=== PATIENT | female | born 1955 | race Caucasian/White ===

== ENCOUNTER 2017-01-25 01:36 | Inpatient (IN) | payer MEDICARE, MEDICAID ==
[2017-01-25] MEDS ORDERED: Propofol 1,000 MG/100 ML VIAL IV ONE (01:40)
[2017-01-25] MEDS ORDERED: Fentanyl 20 MCG/ML 250 ML ONE (01:46)
[2017-01-25] MEDS ORDERED: Norepinephrine 8 MG/0.9% NS 250 ML ONE (01:55)
[2017-01-25 02:02] LABS: Oxyhemoglobin 91.7 % (94.0-97.0); Sodium 143 mmol/L (135-148)
[2017-01-25 02:09] LABS: Mechanical Tidal Volume 500 ml; Modified Allen's Test POSITIVE; Vent YES
[2017-01-25 02:10] LABS: Mode SIMV; PIP 36 cmH2O; Pressure Support 10 cmH2O
[2017-01-25 02:39] LABS: Prothrombin Time 17.7 SEC (12.0-14.7)
[2017-01-25] MEDS ORDERED: Acetaminophen 1,000 MG in Premix Bag 1 BAG IVPB SCH (02:45)
[2017-01-25 02:50] LABS: Lactic Acid - Sepsis 1.3 mmol/L (0.5-2.2)
[2017-01-25 02:53] LABS: ALT (SGPT) 296 U/L (8-55); AST (SGOT) 456 U/L (5-34); Alkaline Phosphatase 76 U/L (40-150); Anion Gap 12 mmol/L (10-20); BUN (Urea Nitrogen) 14 mg/dL (9.8-20.1); Bilirubin, Total 0.6 mg/dL (0.2-1.2); CK (CPK) 345 U/L (29-168); Calc. Creatinine Clearance 0 mL/min (70-130); Carbon Dioxide 24 mmol/L (22-29); Chloride 110 mmol/L (98-107); Estimated GFR-MDRD 37; Globulin 2.3 g/dL (2.4-3.5); Protein, Total 5.6 g/dL (6.0-8.3)
[2017-01-25 03:03] LABS: Band 10 % (5-11); Hematocrit 42.2 % (36.0-47.0); Macrocytosis SLIGHT = 6-15 cells (100X) (0-5/hpf); Mean Platelet Volume 7.4 fL (7.4-10.4); Neutrophil 72 % (42-75); Red Blood Cell (RBC) Count 4.12 mill/uL (4.20-5.40)
[2017-01-25 03:18] LABS: Troponin I 2.691 ng/mL (< 0.028)
[2017-01-25 03:34] LABS: Bacteria/HPF Rare-Few HPF (None Seen); Bilirubin Small (Negative); Blood, Urine Large (Negative); Glucose, Urine (Dipstick) Negative (Negative); Ketone, Urine 15 mg/dL (Negative); Nitrite Negative (Negative); Protein, Urine (Dipstick) 100 mg/dL (Neg-Trace); RBC/HPF 21-50 HPF (0-3); Squamous Epithelial 21-50 HPF (0-3)
[2017-01-25 03:50] LABS: Hyaline Casts/LPF 0-3 HYALINE CAST LPF (0-3 Hyaline); Yeast-All Forms None Seen HPF (None Seen)
[2017-01-25] MEDS ORDERED: Ketorolac Tromethamine 30 MG/ML VIAL ONE (04:35)
[2017-01-25] MEDS ORDERED: Heparin 10,000 UNITS/ 10 ML VIAL SLOW IVP SCH (05:00)
[2017-01-25] MEDS ORDERED: Heparin 25,000 units/D5W 500 ML IV SCH (05:00)
[2017-01-25] MEDS ORDERED: Heparin 25,000 units/D5W 500 ML ONE (05:04)
[2017-01-25 05:49] LABS: Troponin I 3.881 ng/mL (< 0.028)
[2017-01-25] MEDS ORDERED: Lorazepam 2 MG/ML VIAL SLOW IVP PRN (05:57)
[2017-01-25] MEDS ORDERED: Fentanyl 20 MCG/ML 250 ML IVPB SCH (05:57)
[2017-01-25] MEDS ORDERED: DISCONTINUE PREVIOUS NARCOTIC PAIN MEDICATIONS AND BENZODIAZEPINES FS SCH (05:57)
[2017-01-25] MEDS ORDERED: Propofol 1,000 MG/100 ML VIAL IV PRN (05:57)
[2017-01-25] MEDS ORDERED: Acetaminophen 325 MG TAB PO PRN (06:19)
[2017-01-25] MEDS: Sodium Chloride 0.9% 1,000 ML IV SCH ×2 (06:59→18:33)
[2017-01-25] MEDS ORDERED: Norepinephrine 8 MG/250 ML BAG IVPB PRN (07:20)
--- NOTE | 2017-01-25 07:21 | HP ---
DATE OF ADMISSION: 01/25/2017 CHIEF COMPLAINT: Unresponsive. HISTORY OF PRESENT ILLNESS: The patient is a 61-year-old female with past medical history of chronic obstructive pulmonary disease, coronary artery disease, hypertension, hyperlipidemia who was brought to the ER because the patient was found unresponsive. History obtained from the patient's daughter. According to the daughter, the patient was last seen normal the day before yesterday and the patient's daughter tried to reach her yesterday afternoon, was unable to reach her. Yesterday evening around 5:00 p.m. granddaughter went to check on the patient and the patient was found unresponsive and the daughter arrived home. Upon arrival to the home, the patient was found unresponsive and not able to feel a pulse and the patient has frothy secretions in the mouth so EMS was called. Upon EMS arrival, the patient was found unresponsive. The patient was intubated in the field and the patient was brought to an outside ER. Upon ER arrival, the patient was want to have pneumonia and respiratory failure, so patient was transferred here. In our ER, the patient was hypotensive, so patient was started on vasopressors and admitted to the ICU, but according to the daughter, the patient always has a chronic cough, but no other acute issues last 2 days. No fever, no chills in the last few days. PAST MEDICAL HISTORY: As per HPI. PAST SURGICAL HISTORY: Back surgery, neck surgery, cardiac stent. SOCIAL HISTORY: Positive for smoking, denies alcohol, denies any drugs. FAMILY HISTORY: Denies any heart problems. MEDICATIONS: Reviewed. ALLERGIES: Reviewed. REVIEW OF SYSTEMS: Unavailable to obtain from the patient as the patient is currently intubated. PHYSICAL EXAMINATION: CONSTITUTIONAL/VITAL SIGNS: At the time of H&P performed, blood pressure is 100 /62, afebrile, pulse ox 95%. GENERAL: The patient is sedated and intubated. EYES: Pupils sluggish to light. ENT: Patent. Positive for ET tube. NECK: Supple, no JVD. CARDIOVASCULAR: S1, S2 present. Regular rate and rhythm. No murmurs, no rubs , no gallops. RESPIRATORY: Positive for rhonchi. Positive for crackles. Some shortness of breath. No wheezing. GASTROINTESTINAL: Abdomen is soft, nontender, no guarding, no organomegaly, no masses felt. MUSCULOSKELETAL: No edema. CRANIAL NERVE SYSTEM: The patient is really not following commands. INTEGUMENTARY: Dry skin. GENITOURINARY: No suprapubic tenderness. LABORATORY DATA: At the time of H&P performed white count 22, hemoglobin 13.4, platelet count is 227. PT 7.79, INR 1.4. BMP shows sodium 142, potassium 4.1, chloride 110, CO2 24, BUN of 14, creatinine 1.45, BNP 206, troponin 3.88, alkaline phosphatase 76, albumin 3.3. EKG was reviewed. CT chest and abdomen and pelvis; CT chest, positive for acute infiltrates. Official report is pending. CT brain, no acute bleed, official report is pending at this time. ASSESSMENT AND PLAN: The patient is a 61-year-old female. 1. Acute respiratory failure. Continue vent support. I did speak to the Pulmonary Critical Care physician, will admit the patient in ICU for close monitoring. 2. Pneumonia, place the patient on broad spectrum antibiotics. Plan to send flu test, legionella and strep pneumo urinary antigen. Continue breathing treatments. 3. Gfh-SH-[id number] elevation myocardial infarction, plan to continue heparin drip. We will go ahead and consult Cardiology to evaluate the patient. We will check 2-D echo. 4. Sepsis and septic shock with hypotension. Continue vasopressors. Monitor blood pressure closely and we will check blood cultures and urine cultures also. Monitor lactic acid level closely. 5. History of chronic obstructive pulmonary disease. Continue breathing treatments, will add IV Solu-Medrol 60 q.6h. 6. History of hypertension. Hold blood pressure medications. 7. Diabetes mellitus type 2. Monitor blood sugars. We will do insulin sliding scale. The case was discussed in detail with the patient. BARBIE
[2017-01-25] MEDS ORDERED: Cefepime 2 GM, Syringe 2.5 ML in Sterile Water 10 ML SLOW IVP SCH (08:00)
[2017-01-25 08:32] LABS: Troponin I 4.429 ng/mL (< 0.028)
[2017-01-25] MEDS ORDERED: Cefepime 2 GM in Sodium Chloride 0.9% 100 ML IVPB SCH (09:00)
[2017-01-25] MEDS ORDERED: Famotidine 20 MG TAB PO SCH (09:00)
--- NOTE | 2017-01-25 09:01 | RAD ---
EXAM: CHEST 1 VIEW: HISTORY: Line placement. COMPARISON: None. FINDINGS: Portable supine chest demonstrates an endotracheal tube beyond the thoracic inlet. Nasogastric tube terminates in the left upper quadrant. Right-sided internal jugular central venous catheter terminat es in the expected region of the right atrium. Heart is normal in size. There is atherosclerosis of the aorta. Pulmonary vessels and hilum are normal. Costophrenic angles are clear. Lungs are hyper inflated. No obvious masses. There is consolidation in the right lower lobe. No pneumothorax or os seous abnormalities. IMPRESSION: Right lower lobe consolidation. No pneumothorax. POS: [facility]
[2017-01-25] MEDS: Vancomycin HCl 1 GM in Premix Bag 1 BAG IVPB SCH (09:35)
--- NOTE | 2017-01-25 09:58 | CT ---
PRELIMINARY REPORT/[facility]/EMERGENCY AFTER HOURS PROCEDURE: EXAM: CT Head Without Intravenous Contrast CLINICAL HISTORY: 61 years old, female; AMS / memory loss; confusion or disorientation TECHNIQUE: Axial computed tomography images of the head/brain without intravenous contrast. COMPARISON: No relevant prior studies available. FINDINGS: Brain: Subacute versus old area of ischemia within the right posterior parietal-occipital lobe. No ac marily intracranial hemorrhage. Ventricles: Unremarkable. No ventriculomegaly. Bones/joints: Unremarkable. No acute fracture. Soft tissues: Unremarkable. Sinuses: Minimal partial ethmoid sinusitis. Mastoid air cells: Unremarkable as visualized. No mastoid effusion. IMPRESSION: 1. Subacute versus old area of ischemia within the right posterior parietal-occipital lobe. 2. No acute intracranial hemorrhage. Thank you for allowing us to participate in the care of your patient. Dictated and Authenticated by: Kenan Benton MD 01/25/2017 3:57 AM Central Time ([place] & [place]) FINAL REPORT NONCONTRAST HEAD CT: Date: 01/25/17 HISTORY: Altered mental status. COMPARISON: None. TECHNIQUE: Noncontrast head CT is performed from skull base to skull vertex. FINDINGS: This report is in agreement with the preliminary report by [facility]. There is loss of pfeiffer-white matter d ifferentiation and sulcal effacement involving the right occipitoparietal lobe, compatible with an ar ea of ischemia/infarct. Better interrogation with brain MRI is recommended. POS: [facility]
--- NOTE | 2017-01-25 10:00 | CT ---
PRELIMINARY REPORT/[facility]/EMERGENCY AFTER HOURS PROCEDURE: EXAM: CT Angiography Chest With Intravenous Contrast CLINICAL HISTORY: 61 years old, female; Pain; Chest pain; R/O PE TECHNIQUE: Axial computed tomographic angiography images of the chest with intravenous contrast using pulmonary embolism protocol. Coronal reformatted images were created and reviewed. Oblique reformatted images were created and reviewed. CONTRAST: 60 mL of ISOVUE administered intravenously. COMPARISON: No relevant prior studies available. FINDINGS: Pulmonary arteries: No evidence of pulmonary embolism. Small amount of iatrogenic air within the ante rior main pulmonary artery. Small collections of air within an anterior mediastinal vein. Aorta: Normal caliber thoracic aorta without dissection or aneurysm. Lungs: Right lower lobe consolidation and/or atelectasis with associated air bronchograms. Mild patch of infiltrate or atelectasis in the medial right upper lobe. 5 mm nodule anterolateral right lung im ages 67-68, series 3. Minimal posterior left lower lobe atelectasis. Pleural space: No pleural fluid collection. No pneumothorax. Heart: No pericardial effusion. Coronary artery and aortic valve annulus calcification. No evidence o f RV dysfunction. Bones/joints: No acute fracture. No dislocation. Soft tissues: Unremarkable. Lymph nodes: No pathologically enlarged lymph nodes. Intraperitoneal space: Minimal amount of free fluid adjacent to the liver. Tubes, lines and devices: Tip of nasogastric tube located within the stomach. Tip of endotracheal tub e located approximately 5 cm above the gavino. IMPRESSION: 1. No evidence of pulmonary embolism. 2. Right lower lobe consolidation and/or atelectasis with associated air bronchograms. 3. Mild patch of infiltrate or atelectasis in the medial right upper lobe. 4. 5 mm nodule anterolateral right lung images 67-68, series 3. Thank you for allowing us to participate in the care of your patient. Dictated and Authenticated by: Kenan Benton MD 01/25/2017 4:06 AM Central Time ([place] & [place]) FINAL REPORT EXAM: CT ANGIOGRAM OF THE CHEST: HISTORY: Shortness of breath. Respiratory distress. COMPARISON: None. TECHNIQUE: A CT angiogram of the chest was performed in the axial plane. Coronal and oblique 3-dimensional refo rmatted images are submitted for interpretation. FINDINGS: This report is in agreement with the preliminary report by [facility]. No evidence of pulmonary artery embo lism to the level of the segmental arteries. Nasogastric tube and endotracheal tubes are identified. There is consolidation in the right lower lobe due to pneumonia or atelectasis. Component of aspir ation cannot be excluded. A 5 mm nodule in the right lung is demonstrated. There is atherosclerosis of the aorta. Calcification in the aortic valve is noted. POS: [facility]
[2017-01-25 15:11] LABS: Troponin I 5.311 ng/mL (< 0.028)
--- NOTE | 2017-01-25 15:32 | CON ---
DATE OF CONSULTATION: 01/25/2017 TYPE OF CONSULTATION: Cardiology Consultation. REASON FOR CONSULTATION: Non-ST elevation myocardial infarction. HISTORY OF PRESENT ILLNESS: Ms. Jessica Everett is a 61-year-old woman. The patient was brought to the hospital after she was found to be unresponsive at home by her family member. She was transported to the emergency room where she was unresponsive and intubated. The patient was transferred to this in stitution from an outlying institution apparently [place] from what I can tell. The patient is hypotensive. She was on vasopressors. The patient's history was somewhat given by th e family member apparently a daughter who said the patient has a chronic cough and also has some lung troubles. There is some history of coronary artery disease, but no details are available. PAST MEDICAL HISTORY: As outlined above. PAST SURGICAL HISTORY: Back surgery, neck surgery. There is some noted in the history and physical about cardiac stent, but that is not documented yet. SOCIAL HISTORY: Positive for smoking. FAMILY HISTORY: Negative for heart disease. MEDICATIONS: Here she is on intravenous antibiotics. No longer on pressors. ALLERGIES: AZITHROMYCIN. REVIEW OF SYSTEMS: Really not reliable, the patient is still very sleepy. The patient was intubated initially; therefore, review of systems is not available to them. PHYSICAL EXAMINATION: GENERAL: A pleasant elderly woman. She thinks she is at [place]. She is actually in [facility]. She is oriented to person. VITAL SIGNS: Her blood pressure 130/70, pulse 86 regular. LUNGS: There are some rales and wheezing, especially right lower lung base. CARDIAC: Normal S1, normal S2. There is no murmur, rub or gallop. ABDOMEN: Soft, nontender, no hepatosplenomegaly. EXTREMITIES: Warm, dry, no clubbing, cyanosis. There is no edema. PERTINENT LABORATORY AND X-RAY FINDINGS: Potassium is 4.1, creatinine 1.45. Troponin 4.429. Initia l troponin was 2.69. EKG initially sinus rhythm, normal EKG. Chest x-ray shows what appears to be l ikely consolidated right lower lung field. ASSESSMENT: 1. Increased troponin, probably demand ischemia and non-ST elevation myocardial infarction. 2. Likely underlying coronary artery disease. 3. Probable pneumonia. PLAN: 1. Can change from heparin to Lovenox. 2. Continue aspirin. 3. Antibiotics. 4. Echocardiogram. 5. We will be glad to follow with you and eventually some point will probably need a heart catheteri zation.
[2017-01-25] MEDS ORDERED: ISOVUE-370 76%-LOCM 1 ML ONE (15:51)
[2017-01-25] MEDS ORDERED: Enoxaparin Sodium 60 MG/0.6 ML SYRINGE SC SCH (16:00)
[2017-01-25] MEDS ORDERED: Acetaminophen 650 MG in Premix Bag 1 BAG IVPB PRN (17:14)
[2017-01-25] MEDS: Ondansetron HCl/PF 4 MG/2 ML Vial SLOW IVP PRN (17:30)
[2017-01-25 18:52] LABS: Troponin I 5.392 ng/mL (< 0.028)
[2017-01-25] MEDS ORDERED: Aspirin 300 MG Suppository PR SCH (19:00)
[2017-01-25] MEDS: Sodium Chloride 0.45% 1,000 ML IV SCH (20:06)
--- NOTE | 2017-01-26 01:05 | CON ---
DATE OF CONSULTATION: 01/25/2017 SERVICE: Pulmonary Medicine. REASON FOR CONSULTATION: Respiratory failure. HISTORY OF PRESENT ILLNESS: The patient is a 61-year-old white female who was found down in her home . She was down for an unknown duration. That being said, she was completely obtunded. When EMS arr ived on the scene, she was intubated and brought to the Emergency Department. Originally, she was co mpletely nonresponsive, but then slowly, she started having improvement in her mentation. This morni wojciech I found her fairly calm on mechanical ventilation. She is following all commands. She is not mo ving her left upper extremity, but outside of that, she is following all commands. PAST MEDICAL HISTORY: 1. COPD. 2. Coronary artery disease. 3. Hypertension. 4. Dyslipidemia. PAST SURGICAL HISTORY: 1. Neck surgery. 2. Back surgery. 3. Percutaneous coronary intervention. SOCIAL HISTORY: Positive for a [id number] history of smoking. She denies any alcohol or illicit d rugs. She has no exposures to chemicals, dust, asbestos or tuberculosis otherwise. FAMILY HISTORY: Noncontributory. ALLERGIES: No known drug allergies. MEDICATIONS: List of her home medications and inpatient medications were reviewed. Multiple updates were made. REVIEW OF SYSTEMS: The patient is intubated and under the influence of some sedation. As such, this cannot be obtained. PHYSICAL EXAMINATION: VITAL SIGNS: Afebrile, currently with a T-max of 100.6, pulse 98, blood pressure 141/82, respiration s 19, saturation 95% on 27% FiO2 and a PEEP of 5. HEENT: Normocephalic and atraumatic. Sclerae are white, conjunctivae pink. Oral and nasal mucosa i s moist without lesions. LUNGS: Decent air entry. Rhonchi are present. There is a prolonged expiratory phase. Wheezing is also there. There are no crackles. HEART: Normal rate and regular. ABDOMEN: Soft, nontender and nondistended. Bowel sounds are positive. MUSCULOSKELETAL: No cyanosis or clubbing. There is no pitting in the bilateral lower extremities. NEUROLOGIC: She is not moving the left upper extremity, but otherwise she is moving her right and le ft leg, right upper extremity on command. She can lift her head and demonstrates marginal strength. She has a very good cough. She is gagging. Her pupils are equal, round and reactive. She is overb reathing the ventilator comfortably. LABORATORY DATA: WBC 22.0, hemoglobin 13.4 and platelets 227,000. Neutrophil count is 72%. INR 1.4 . PH of 7.33, pCO2 of 43 and pO2 of 66. Troponin continues to trend up 4-5.3. Lactate 1.3, BNP 296 . AST and ALT are elevated at 400 and 300, respectively. Creatinine 1.45. Basic metabolic profile and liver function studies are otherwise unremarkable with a low total bilirubin. Urinalysis is posi tive for white cells and red blood cells. Leukocyte esterase is small and nitrites are negative, how ever. IMAGING DATA: 1. Echocardiogram demonstrates 50% to 55% ejection fraction. Left atrium is minimally dilated. Stru cturally normal mitral valve. Normal pulmonary artery pressure. The inferior vena cava is dilated w ith poor inspiratory collapse consistent with her being tanked up. 2. Chest x-ray demonstrates right middle lobe consolidation. There is a right IJ CVC that terminate s in the distal SVC or right atrium. There is an enteric catheter in good position coursing well bel ow the level of the expected region of the diaphragm. There is no obvious pleural effusion evident. 3. CTA of the chest demonstrates no evidence of a pulmonary embolism. Endotracheal tube is in decen t position. Patulous esophagus is evident. There is an infiltrate with air bronchograms in the post erior segment of the right lower lobe. 4. CT of the brain demonstrates no subacute versus old area of ischemia within the right posterior p arietal occipital lobe. Otherwise, no hemorrhage is identified. 5. Echocardiogram demonstrates normal ejection fraction of 50% to 55% with no focal wall motion abno rmalities noted. ASSESSMENT: 1. Acute hypoxic respiratory failure. 2. Severe sepsis. 3. Community-acquired pneumonia. 4. Cerebrovascular accident, possible. 5. Remote history of cerebrovascular accident in the right parietal occipital region. 6. Chronic obstructive pulmonary disease with acute exacerbation. 7. Type 2 diabetes mellitus. PLAN: We will continue supportive care. The patient will be given a spontaneous breathing trial if she wakes up smoothly. Extubation will be considered at that time. The patient will require an MRI of the brain once things settle out. For the time being, Neurology consultation will be placed to [facility] if they can correlate the abnormal CT findings with the patient's neurologic exam. We will also ge t an ultrasound of the neck. We will continue some gentle hydration with IV fluids as well as our em piric antibiotics for community-acquired pathogens. CRITICAL CARE TIME: 30 minutes.
[2017-01-26] MEDS ORDERED: Lorazepam 2 MG/ML VIAL SLOW IVP SCH (02:00)
[2017-01-26] MEDS: Metoprolol Tartrate 5 MG/5 ML VIAL IVP PRN ×4 (03:07→21:06)
[2017-01-26] MEDS ORDERED: Metoprolol Tartrate 5 MG/5 ML VIAL IVP SCH (05:00)
[2017-01-26 06:44] LABS: Band 3 % (5-11); Hematocrit 38.8 % (36.0-47.0); Mean Platelet Volume 8.4 fL (7.4-10.4); Neutrophil 87 % (42-75); Red Blood Cell (RBC) Count 3.91 mill/uL (4.20-5.40)
[2017-01-26 06:47] LABS: Anion Gap 16 mmol/L (10-20); BUN (Urea Nitrogen) 28 mg/dL (9.8-20.1); Calc. Creatinine Clearance 48 mL/min (70-130); Calcium 8.6 mg/dL (7.8-10.44); Carbon Dioxide 17 mmol/L (22-29); Chloride 112 mmol/L (98-107); Cholesterol 72 mg/dl (< 200 Desired); Estimated GFR-MDRD 46; LDL Cholesterol, Calculated 27 mg/dL
[2017-01-26 06:54] LABS: Critical Call Chem Troponin I RESULT DECREASING; Troponin I 4.513 ng/mL (< 0.028)
[2017-01-26] MEDS ORDERED: Dextrose 5% in Water 1,000 ML IV PRN (07:44)
[2017-01-26] MEDS ORDERED: Dextrose 50% Abboject 50 ML SYRINGE SLOW IVP PRN (07:44)
--- NOTE | 2017-01-26 08:08 | ULT ---
CAROTID DUPLEX SONOGRAM: HISTORY: CVA. FINDINGS: RIGHT: Minimal plaque is present. Color and spectral Doppler evaluation, peak systolic velocity of 48 cm/s, and IC to CC ratio of 0.7 suggests no hemodynamically significant stenosis within the extracranial r ight ICA. Antegrade flow is present within the vertebral artery. LEFT: No significant plaque. Color and spectral Doppler evaluation, peak systolic velocity of 53 cm/s, and IC to CC ratio 0.9 suggests no hemodynamically significant stenosis within the extracranial left ICA . Antegrade flow is present within the vertebral artery. IMPRESSION: Minimal plaque. There is no sonographic evidence of significant extracranial internal carotid artery stenosis. POS: [facility]
[2017-01-26 08:22] LABS: Lactic Acid - Sepsis 4.2 mmol/L (0.5-2.2)
[2017-01-26] MEDS: Sodium Chloride 0.45% 1,000 ML IV SCH ×2 (08:26→23:47)
[2017-01-26] MEDS: Vancomycin HCl 1 GM in Premix Bag 1 BAG IVPB SCH (08:26)
[2017-01-26] MEDS: Aspirin 300 MG Suppository PR SCH (08:27)
[2017-01-26] MEDS: Enoxaparin Sodium 60 MG/0.6 ML SYRINGE SC SCH ×2 (08:27→20:39)
[2017-01-26] MEDS: Cefepime 2 GM, Syringe 2.5 ML in Sterile Water 10 ML SLOW IVP SCH (08:52)
[2017-01-26] MEDS ORDERED: Famotidine/PF 20 mg/2ml Vial SLOW IVP SCH (09:00)
[2017-01-26] MEDS ORDERED: Aspirin 81 mg Enteric Coated Tablet PO SCH (09:00)
[2017-01-26] MEDS: Morphine 2 mg/2ml in 0.9% NaCl PF SYRINGE IV PRN ×2 (11:41→23:47)
[2017-01-26 13:00] LABS: Modified Allen's Test NOT DONE; Oxyhemoglobin 88.3 % (94.0-97.0); Sodium 142 mmol/L (135-148)
[2017-01-26 13:01] LABS: Mode O2 2L/M NC; Vent NO
--- NOTE | 2017-01-26 13:52 | PRG ---
DATE OF SERVICE: 01/26/2017 The patient was seen and examined at the bedside. She is in ICU, A4. SUBJECTIVE: The patient is trying to follow my commands, but she falls short very quickly. She is m oaning on and off. There is not much communication with her. OBJECTIVE: VITAL SIGNS: Blood pressure is 125/100, pulse is 120, respiratory rate is 36, O2 saturation is 95% o n O2. HEENT: She is not letting me check her pupils, but they look like they are in mid position, 3 mm in size. There is some response to light. Oral mucosa is somewhat dry. NECK: Supple. LUNGS: Breath sounds diminished at the right base. No wheezing. HEART: S1, S2, tachycardic, no S3, no S4, no murmur. ABDOMEN: Soft, nontender, nondistended. Bowel sounds are present, no organomegaly. EXTREMITIES: No clubbing, cyanosis, or edema. NEUROLOGICAL EXAMINATION: She is obtunded. She tries to follow my commands, but she falls short nette y quickly. She has some left-sided flaccid paralysis of the upper extremities. The left leg seems t o be much better, but I am not sure whether it is in normal state, not presenting with any weakness. LABORATORY DATA: White count of 21,000, hemoglobin 12.7, hematocrit 38.8, platelet count is 177,000, 87% neutrophils. APTT 97.5 from yesterday, sodium 141, potassium 4.3, chloride 112, CO2 of 17, BUN is 28, creatinine 1.20. Troponins elevated at the range from 4 to 5.39 max. The rest of chemistry w ithin normal limits. Microbiology is pending. IMPRESSION: 1. Altered mental status with left upper extremity flaccid paralysis, which is more consistent with acute cerebrovascular accident of the right middle cerebral artery. The patient is on aspirin. 2. Non-ST segment elevation myocardial infarction. The patient was seen by metal box maker. Her echoc ardiogram showed a normal left ventricular size and ejection fraction, dilated IVC with poor inspirat ion collapse consistent with elevated right atrial pressure. 3. Right lower lobe infiltrate, which is probably aspiration pneumonia. 4. Acute respiratory failure, status post extubation. The patient seems to be oxygenating well on O 2 by nasal cannula. She is not in any obvious respiratory distress during my visit. Anatomic Pathology Manager i s following the case. 5. Sepsis with septic shock with hypotension. The patient was on vasopressor, it was stopped since her blood pressure recovered. 6. History of chronic obstructive pulmonary disease. We will continue on DuoNebs and IV steroids. 7. History of hypertension. We will follow that closely. 8. Diabetes mellitus, type 2. We will have her on Accu-Cheks every 6 hours with mild sliding scale. We will continue her antibiotics. We will check on her microbiology later today and watch her clos kahlil. We will try to talk to the family to find out more about her past medical history, and for now, I am not going to restart her home medications since she is obtunded and it is not really clear what is affecting her mental status at this point.
[2017-01-26] MEDS ORDERED: Lactated Ringer's 1,000 ML IV SCH (17:30)
[2017-01-26] MEDS: Insulin Regular 300 UNITS/3 ML VIAL SC PRN (22:07)
--- NOTE | 2017-01-26 22:18 | PRG ---
DATE OF SERVICE: 01/26/2017 SERVICE: Pulmonary Medicine. INTERVAL HISTORY: The patient is doing poorly from a respiratory standpoint. She is tachypneic and breathing uncomfortably. She cannot provide any additional elements of the history today. Besides h er encephalopathy, there were no significant overnight events. PHYSICAL EXAMINATION: VITAL SIGNS: Currently afebrile. T-max yesterday morning was 100.6. Pulse 126, blood pressure 113/ 82, respirations 33, saturation 93% on 4 liters nasal cannula. GENERAL: The patient is encephalopathic. HEENT: Normocephalic, atraumatic. Sclerae are white, conjunctivae pink. Oral and nasal mucosa is m oist without lesions. LUNGS: Decent air entry with rhonchi present bilaterally. She does cough and seems to be protecting her airway. HEART: Tachycardic. Regular. ABDOMEN: Soft, nontender, nondistended. Bowel sounds are positive. MUSCULOSKELETAL: No cyanosis or clubbing. There is no pitting in the bilateral lower extremities. NEUROLOGIC: Grossly nonfocal. LABORATORY DATA: WBC 21. Hemoglobin 12.7, platelets 177. Neutrophil count is increasing, but the b and count is dropping. INR 1.4. pH is actually normal. PCO2 of 21, pO2 of 55.3. Lactic acid is do wn trending to 6.3 but as previously noted, this is not an acidosis. Troponin is down trending to 4. 5. Creatinine is actually improving to 1.2. BUN 28, bicarbonate 17. Basic metabolic profile is oth erwise unremarkable. Urine culture and blood culture x2 are unremarkable. IMAGING: Ultrasound of the bilateral neck demonstrates no significant stenoses of the carotid arteri es. ASSESSMENT: 1. Acute hypoxic respiratory failure. 2. Severe sepsis. 3. Metabolic encephalopathy. 4. Community-acquired pneumonia. 5. CVA, suspected. 6. Chronic obstructive pulmonary disease with acute exacerbation. 7. Type 2 diabetes mellitus. 8. History of chronic opiate use with fairly high doses in the outpatient setting with likely withdr awal symptoms presently. PLAN: Since the MRI machine is down, if the patient's encephalopathy feels clear, repeat CT of the h ead should be considered tomorrow. I will provide her with intermittent doses of morphine as the pat ient is likely having significant withdrawal features, but does not have the ability to let us know. We will have respiratory therapy provide physiotherapy a couple of times daily to see if we can make certain that she continues to protect her airway. There is a lactate that is accumulating in her bl oodstream. However, it is not associated with acidosis on the ABG and is unlikely to be representati ve of significant end-organ disease. She will certainly remain in the ICU for the time being.
[2017-01-27] MEDS: Metoprolol Tartrate 5 MG/5 ML VIAL IVP PRN ×2 (03:13→17:35)
[2017-01-27] MEDS: Morphine 2 mg/2ml in 0.9% NaCl PF SYRINGE IV PRN ×2 (03:20→20:08)
[2017-01-27 05:04] LABS: Anion Gap 16 mmol/L (10-20); BUN (Urea Nitrogen) 54 mg/dL (9.8-20.1); Calc. Creatinine Clearance 33 mL/min (70-130); Calcium 8.3 mg/dL (7.8-10.44); Carbon Dioxide 16 mmol/L (22-29); Chloride 113 mmol/L (98-107); Estimated GFR-MDRD 29; Magnesium 1.9 mg/dL (1.6-2.6); Phosphorus 2.8 mg/dL (2.3-4.7)
[2017-01-27 06:03] LABS: Band 3 % (5-11); Hematocrit 35.9 % (36.0-47.0); Mean Platelet Volume 9.1 fL (7.4-10.4); Neutrophil 78 % (42-75); Nucleated RBC 2 % (0)
[2017-01-27 07:36] LABS: Vancomycin, Trough 15.6 ug/mL
[2017-01-27] MEDS: Cefepime 2 GM, Syringe 2.5 ML in Sterile Water 10 ML SLOW IVP SCH (08:17)
[2017-01-27] MEDS: Enoxaparin Sodium 60 MG/0.6 ML SYRINGE SC SCH ×2 (08:17→20:09)
[2017-01-27] MEDS: Vancomycin HCl 1 GM in Premix Bag 1 BAG IVPB SCH (08:18)
[2017-01-27] MEDS: Aspirin 300 MG Suppository PR SCH (08:19)
--- NOTE | 2017-01-27 08:59 | RAD ---
PORTABLE CHEST: COMPARISON: 01/25/17 study. HISTORY: Followup right lower lobe pneumonia. FINDINGS: Heart size is enlarged. There is increased density in the right bases compared to the prior exam sug gesting infiltrate, probably with some associated fusion. There is also some blunting to the left co stophrenic angle. IMPRESSION: Cardiomegaly with bibasilar pleural and parenchymal lung changes somewhat increased as compared to th e prior study. POS: [facility]
[2017-01-27] MEDS ORDERED: VANCOMYCIN IVPB PRN (09:04)
[2017-01-27 10:36] LABS: ALT (SGPT) 3190 U/L (8-55); Alkaline Phosphatase 75 U/L (40-150); Bilirubin, Direct 0.4 mg/dL (0.1-0.3); Bilirubin, Total 0.8 mg/dL (0.2-1.2); Protein, Total 5.6 g/dL (6.0-8.3)
[2017-01-27 11:02] LABS: AST (SGOT) Greater than 3500 U/L (5-34)
--- NOTE | 2017-01-27 11:16 | PRG ---
DATE OF SERVICE: 01/27/2017 SUBJECTIVE: Ms. Everett is still somnolent. She will awake and move her left side. We reviewed her C T. This showed a right posterior parietal thrombotic event. PHYSICAL EXAMINATION: VITAL SIGNS: Remained stable. She is adequately protecting her airway, heart rate 73, respiratory r ate is in 20s, oximetry is 94% on 2 liters, last blood pressure is 147/117, blood pressure before delroy t was 106/75. LUNGS: Clear anteriorly. HEART: Regular rhythm. ABDOMEN: Soft. LABORATORY DATA: Sodium 142, potassium 4.1, chloride 110, bicarbonate 24, BUN 14, and creatinine 1.4 5. White count 14, hemoglobin 12.1, and platelets 115. IMPRESSION: 1. Cerebrovascular accident. 2. Pneumonia. 3. Positive fluid balance with a net balance of 1837, positive. Creatinine actually has gone up fro m 1.2-1.76. We will not diurese her at this time. 4. Abnormal troponin on admission. 5. Abnormal liver enzymes on admission. I will repeat these and check pneumonia. 6. Hypoalbuminemia. 7. History of obstructive lung disease, hypertension, and coronary artery disease. 8. Diabetes. PLAN: Continue supportive care. She is doing well at this time. I do not feel that an MRI will add anything to our management at this point in time. At some point, it would be reasonable, but I am h esitant to move her downstairs. We will reassess her in the morning and met with family and answered all their questions.
--- NOTE | 2017-01-27 12:05 | PRG ---
DATE OF SERVICE: 01/27/2017 SUBJECTIVE: The patient was seen and examined at bedside. She is in ICU, A4. She is a little bit m ore awake this morning. She keeps her eyes closed, but she says as a few words and she follows my ba sic commands. There were not any unexpected events overnight. OBJECTIVE: VITAL SIGNS: Blood pressure is 106/75, pulse is 84, respiratory rate is 29, O2 saturation is 97%. GENERAL: She follows my commands, but she fell short quickly. She does not want to open her eyes. She shows me her tongue which is somewhat dry. NECK: Supple. LUNGS: Clear, breath sounds diminished at both bases. HEART: S1, S2. No S3, S4. ABDOMEN: Soft, nontender. Bowel sounds are present. EXTREMITIES: Left-sided weakness noticeable more in the left upper extremity than in the left lower extremity. NEUROLOGIC: As above. SKIN: No rash or erythema. LABORATORY DATA: Showed white count down to 14,000, hemoglobin 12.1, hematocrit 35.9, platelet count is 115, neutrophils down to 78%. Sodium of 141, potassium 4.0, chloride 113, CO2 16, BUN 54, creati nine 1.76. Glycemics from 139-162. Lactic acid is down to 3.1, magnesium 1.9. Vancomycin trough 15 .6, phosphorus 2.8, calcium 8.3. IMAGES: Chest x-ray showed persistent right lower lobe infiltrate. IMPRESSION: 1. Altered mental status with left upper extremity flaccid paralysis consistent with acute cerebrova scular accident and right middle cerebral artery distribution. Patient is on rectal aspirin. Her m ental status is somewhat better today. She is definitely waking up and asking for some water. 2. Non-ST segment elevation myocardial infarction. 3. Right lower lobe infiltrate which is most likely pneumonia. Patient is on cefepime and vancomyci n. 4. Acute respiratory failure, status post extubation, doing sufficiently well on nasal cannula. 5. Diabetes mellitus type 2, relatively well controlled. 6. Sepsis with septic shock with hypotension. Blood cultures and urine cultures were negative. 7. History of chronic obstructive pulmonary disease, on DuoNebs and intravenous steroids, the dose w as decreased. 8. History of hypertension. PLAN: Obtain an MRI of the brain with gadolinium. If it is possible that she could not stay still, w e will do a CT of the head. Also, we will continue supportive care. We will continue aspirin, samir nue IV fluids, nothing orally and we will continue both antibiotics.
[2017-01-27] MEDS: Sodium Chloride 0.45% 1,000 ML IV SCH ×2 (12:40→14:16)
--- NOTE | 2017-01-27 14:56 | CON ---
DATE OF CONSULTATION: 01/27/2017 HISTORY OF PRESENT ILLNESS: The patient is a 61-year-old female who was found down by fami ly members in bed and lethargic. She also had foam coming out of her nose and mouth. She is moaning in bed and somewhat difficult historian. She is intubated by EMS and transferred to [facility]. Mar betancourt was hypotensive and placed on vasopressors. PAST MEDICAL HISTORY: Includes chronic obstructive pulmonary disease, chronic back pain, and coronar y artery disease. PAST MEDICAL HISTORY: Includes back surgery, neck surgery, cardiac stent. SOCIAL HISTORY: She does smoke and denies alcohol. FAMILY HISTORY: Negative for GI or liver disease. MEDICATIONS: Include multivitamin 1 p.o. daily, Xanax 0.5 mg p.o. t.i.d., temazepam 30 mg p.o. at be dtime, hydrocodone 10/325 one p.o. t.i.d., morphine sulfate 60 mg p.o. daily, baclofen 20 mg p.o. t.i .d., metformin 500 mg p.o. b.i.d., Remeron 50 mg p.o. daily, Crestor 40 mg p.o. daily, lisinopril 20 mg p.o. daily, budesonide, Symbicort 2 puffs b.i.d., albuterol inhaler q.4 hours p.r.n. ALLERGIES: AZITHROMYCIN. REVIEW OF SYSTEMS: Unobtainable. PHYSICAL EXAMINATION: GENERAL: Shows an elderly cachectic-appearing white female, moaning. VITAL SIGNS: Temperature is 98.9, pulse of 111, blood pressure 119/71, respiratory rate 28. HEENT: Unremarkable. NECK: Supple. CHEST: Show bilateral rhonchi. CARDIOVASCULAR: Regular rate and rhythm. ABDOMEN: Soft, slightly tender in the right upper quadrant, but no rebound or guarding. Bowel sound s are present and normoactive. RECTAL: Deferred. EXTREMITIES: Normal. NEUROLOGIC: She is slightly obtunded, but seems to be answering questions appropriately. LABORATORY DATA: Shows white blood cell count 14.0, hemoglobin 12.1, hematocrit 35.9, and 78 neutrop hils. Platelet count is 115. PT is 17.7 with an INR of 1.4. Chemistries on admission show chloride 113, CO2 16, BUN 54, creatinine 1.76, and glucose 121. LFTs show a total bilirubin of 0.8, AST of g reater than 3500, ALT of 3190, albumin of 3.3. Urinalysis from admission showed 21-50 RBCs, greater than 50 WBCs. ASSESSMENT: 1. Significantly elevated transaminases - I think this is a consequence of shock liver, possibly als o some medication effect; however, mostly secondary to shock liver. 2. History of coronary artery disease. 3. Chronic obstructive pulmonary disease. 4. Sepsis. 5. Urinary tract infection - possibly source of the patient's sepsis. RECOMMENDATIONS: 1. Stat liver ultrasound. 2. Follow LFTs. 3. Hepatitis panel.
--- NOTE | 2017-01-27 16:32 | ULT ---
HEPATIC ULTRASOUND WITH TWO PHASE EVALUATION: 01/27/17 INDICATION: Hepatic shot. TECHNIQUE: Edwards scale, color doppler with vascular duplex was performed. FINDINGS: There was limitation during the scan due to patient cooperation, limited mobility and inability to ho ld breath. Incidental note is made of bilateral pleural effusions and mild ascites. No focal hepatic lesions are evident. Liver is enlarged measuring 18.6 cm. The gallbladder demonstrates prominent wall thickening. Sonographic Pressley's sign could not determine d due to patient uncooperation. Common bile duct measures 3.2 mm. The pancreas was obscured. There is respiratory phasicity seen within the portal vein but flow appears to be hepatopedal. Approp riate flow is present within hepatic veins with evidence of some cardiac phasicity. Splenic vein and splenic artery were not well assessed. Hepatic artery demonstrate appropriate hepatopedal flow. Flow is present within the IVC. IMPRESSION: 1. Hepatomegaly. 2. Mild ascites and bilateral pleural effusions. 3. Prominent gallbladder wall thickening is nonspecific can be seen in patient's with chronic li nette disease and CHF. Acute acalculous cholecystitis cannot be entirely excluded. If clinically indica lashell, further evaluation with HIDA scan may be helpful. 4. Hepatopedal flow is seen within the portal veins and hepatic artery. Splenic veins were poorl y assessed. POS: SANDY
[2017-01-27] MEDS: Insulin Regular 300 UNITS/3 ML VIAL SC PRN (21:06)
[2017-01-28] MEDS: Morphine 2 mg/2ml in 0.9% NaCl PF SYRINGE IV PRN ×6 (00:27→22:34)
[2017-01-28] MEDS: Sodium Chloride 0.45% 1,000 ML IV SCH (02:25)
[2017-01-28 03:53] LABS: ALT (SGPT) 2647 U/L (8-55); AST (SGOT) 2314 U/L (5-34); Alkaline Phosphatase 80 U/L (40-150); Bilirubin, Direct 0.3 mg/dL (0.1-0.3); Bilirubin, Total 0.7 mg/dL (0.2-1.2); Protein, Total 5.7 g/dL (6.0-8.3)
[2017-01-28 03:54] LABS: Anion Gap 17 mmol/L (10-20); BUN (Urea Nitrogen) 71 mg/dL (9.8-20.1); Calc. Creatinine Clearance 26 mL/min (70-130); Calcium 8.1 mg/dL (7.8-10.44); Carbon Dioxide 16 mmol/L (22-29); Chloride 112 mmol/L (98-107); Estimated GFR-MDRD 22; Magnesium 2.1 mg/dL (1.6-2.6)
[2017-01-28 03:55] LABS: Mean Platelet Volume 9.4 fL (7.4-10.4); Red Blood Cell (RBC) Count 3.39 mill/uL (4.20-5.40); White Blood Cell (WBC) Count 14.7 thou/uL (4.8-10.8)
[2017-01-28 03:56] LABS: Band 5 % (5-11); Neutrophil 79 % (42-75); Nucleated RBC 2 % (0)
[2017-01-28] MEDS: Cefepime 2 GM, Syringe 2.5 ML in Sterile Water 10 ML SLOW IVP SCH (07:18)
[2017-01-28] MEDS: Vancomycin HCl 1 GM in Premix Bag 1 BAG IVPB SCH (07:19)
--- NOTE | 2017-01-28 08:36 | PRG ---
DATE OF SERVICE: 01/28/2017 SUBJECTIVE: The patient is seen and examined at the bedside. She is waking up. She keeps her eyes open and she is trying to follow my simple commands. She answers my very simple questions properly. OBJECTIVE: VITAL SIGNS: Blood pressure is 125/88, pulse is 115, respiratory rate is 30, O2 saturation is 96% on 1 liter of O2. HEENT: Head is atraumatic. Pupils responding to light. She does not follow me when I assessed her ocular movements. NECK: Supple. LUNGS: Left base with crackles and breath sounds diminished at both bases. No wheezing. HEART: S1, S2, tachycardic, no S3, no S4. ABDOMEN: Soft, somewhat tender. Bowel sounds are present. EXTREMITIES: No clubbing, cyanosis, or edema. NEUROLOGICAL EXAMINATION: She is alert and oriented to name and her age. She follows my simple comm ands. She has some weakness, which is mostly in her left lower extremity. There is some mild weakne ss in the left upper extremity too. SKIN: No rash or erythema. LABORATORY DATA: Showed white count of 14.7, hemoglobin 11.1, hematocrit 33.0, platelet count was 96 ,000. Potassium is 4.0, chloride 112, sodium 141, CO2 of 16, BUN 71 with creatinine 2.25. Glycemia is ranging from 131 to 151. Her AST is down to 2314, ALT is down to 2647, alkaline phosphatase is 80 . Direct bilirubin is down from 0.4-0.3 and total bilirubin is 0.7. Ultrasound of the abdomen showe d hepatomegaly and mild ascites and bilateral pleural effusions. Also, radiologist noticed prominent gallbladder wall thickening, nonspecific. We suspect that she might have some chronic liver disease , most likely. Her echocardiogram was done and it did not show any significant changes IMPRESSION: 1. Altered mental status with left upper extremity flaccid paralysis and left lower extremity paraly sis consistent with acute versus subacute right middle cerebral artery distribution cerebrovascular a ccident. The patient is on aspirin. 2. Pneumonia. Continue on cefepime and vancomycin. 3. Non-ST segment elevation myocardial infarction. The patient is on full dose of Lovenox. We will discuss this case with Dr. Clark, who is dictaphone operator for Cardiology over this weekend, since her thr ombocytopenia is getting worse. 4. Thrombocytopenia, as mentioned above. We will try to hold on her Lovenox until Cardiology decisi on. 5. Acute respiratory failure, status post ventilation and extubation, saturating well, 95% on 1 lite r by nasal cannula. 6. History of advanced chronic obstructive pulmonary disease. 7. Diabetes mellitus, type 2, well controlled. 8. Sepsis with septic shock with hypotension, septic liver, liver function tests are getting better, blood cultures and urine cultures are negative, unclear etiology. 9. History of hypertension, which is stable at this point. PLAN: Critical Care, Dr. Thompson, did not decide to have MRI on her brain, so we will just continue as pirin at this point. She will have evaluation of her swallowing, and if she passes, we can start her feeding. Also, I am going to request Nephrology consultation with Dr. Hudson since her kidney func tion is getting worse; this could be related to her sepsis. We will cut back on her IV fluids and we will switch her to oral if she is able to swallow. We will continue antibiotics and continue suppor tive care in the Intensive Care Unit, since she is still very sick.
[2017-01-28] MEDS: Aspirin 300 MG Suppository PR SCH (09:14)
[2017-01-28] MEDS: Insulin Regular 300 UNITS/3 ML VIAL SC PRN ×3 (09:14→23:50)
--- NOTE | 2017-01-28 12:43 | PRG ---
DATE OF SERVICE: 01/28/2017 SUBJECTIVE: The patient is moaning about her back pain. She is requesting water and food. She shubham es any abdominal pain. OBJECTIVE: VITAL SIGNS: Pulse is 113, blood pressure 114/82, respiratory rate 28, temperature 98.6. CHEST: Clear. CARDIOVASCULAR: Regular rate and rhythm. ABDOMEN: Diffusely tender, but less so when distracted. EXTREMITIES: Unchanged. LABORATORY DATA: Shows hepatitis panel to be nonreactive. White blood cell count 14.7, hemoglobin 1 1.1, and platelet count 96,000. LFTs show AST of 2314, ALT of 2647, total bilirubin and alkaline ryan sphatase are normal. Albumin is 3.2. ASSESSMENT: 1. Ischemic hepatitis - improving. 2. Elevated serum ammonia - this is probably on the basis of hypovolemic shock rather than preexisti ng liver disease. 3. Hepatomegaly by ultrasound. Hepatic ultrasound with Doppler showed hepatomegaly, mild ascites and bilateral pleural effusions, pr ominent gallbladder wall thickening is nonspecific, but can be seen in patients with chronic liver di sease and CHF. Hepatopedal flow is seen within the portal veins and hepatic artery. RECOMMENDATIONS: 1. Repeat serum ammonia. If elevated, may treat with some lactulose. 2. Continue to follow LFTs. 3. Begin feeding via Dobbhoff orally.
--- NOTE | 2017-01-28 12:51 | RAD ---
KUB: HISTORY: Dobbhoff tube placement. FINDINGS: This film includes the upper abdomen and shows a Dobbhoff feeding tube below the hemidiaphragm. It a ppears to be what is probably the antrum region of the stomach. IMPRESSION: Dobbhoff feeding tube in what appears to be the antrum region of the stomach. POS: [facility]
[2017-01-28] MEDS ORDERED: Diltiazem HCl SR 60 mg Capsule PO SCH (15:00)
--- NOTE | 2017-01-28 15:20 | PRG ---
ADDENDUM DATE OF SERVICE: 01/28/2017 She has also had progressive decline in platelet function and she is on full dose Lovenox. We recomm ended we cut her full dose Lovenox out for now. I am okay with prophylactic dose of Lovenox. This w ill be discussed with Cardiology. We will continue with half normal saline infusion.
--- NOTE | 2017-01-28 17:25 | PRG ---
DATE OF SERVICE: 01/28/2017 SUBJECTIVE: Ms. Everett looks about the same to me. OBJECTIVE: VITAL SIGNS: She is afebrile, heart rate 112, respiratory rate 23, oximetry is 96 on 2 liters, blood pressure 130/94. GENERAL: The nurse felt she is little bit more verbal today. LUNGS: Clear. HEART: Regular rhythm. ABDOMEN: Soft. Dobbhoff tube was placed for nutritional support and is in the stomach. LABORATORY DATA: White count 14.7, hemoglobin 11.1, platelets 96,000. Electrolytes: Sodium 141, po tassium 4, chloride 112, bicarbonate 16, BUN 71, creatinine 2.25. AST is 2314, ALT 2647, alkaline ph osphatase is 80, ammonia is down 72. IMPRESSION: 1. Pneumonia with respiratory failure, clinically stable. 2. Elevated liver enzymes with elevated ammonia, both of which are improving. 3. Mild hyperchloremic acidosis. 4. Acute renal dysfunction on chronic kidney disease. 5. Pneumonia. 6. Cerebrovascular accident. Her creatinine continues to rise slowly. Hopefully, this will plateau . She appears to be stable, but does need to stay in the critical care environment.
[2017-01-28] MEDS ORDERED: Enoxaparin Sodium 40 MG/0.4 ML SYRINGE SC SCH (21:00)
[2017-01-28] MEDS: Metoprolol Tartrate 5 MG/5 ML VIAL IVP PRN (22:38)
[2017-01-29] MEDS: Metoprolol Tartrate 5 MG/5 ML VIAL IVP PRN (05:08)
[2017-01-29] MEDS: Sodium Chloride 0.45% 1,000 ML IV SCH ×3 (05:11→15:53)
[2017-01-29] MEDS: Morphine 2 mg/2ml in 0.9% NaCl PF SYRINGE IV PRN (06:21)
[2017-01-29 06:35] LABS: Band 4 % (5-11); Hematocrit 34.3 % (36.0-47.0); Metamyelocyte 1 % (0-0); Myelocyte 1 % (0-0); Neutrophil 85 % (42-75); Nucleated RBC 4 % (0); Red Blood Cell (RBC) Count 3.51 mill/uL (4.20-5.40); White Blood Cell (WBC) Count 20.4 thou/uL (4.8-10.8)
[2017-01-29 06:36] LABS: Chloride 111 mmol/L (98-107); Magnesium 2.4 mg/dL (1.6-2.6)
[2017-01-29 06:37] LABS: Calcium 8.2 mg/dL (7.8-10.44)
[2017-01-29 06:39] LABS: Anion Gap 15 mmol/L (10-20); Bilirubin, Total 0.8 mg/dL (0.2-1.2); Carbon Dioxide 17 mmol/L (22-29)
[2017-01-29 06:40] LABS: Alkaline Phosphatase 90 U/L (40-150); Phosphorus 3.1 mg/dL (2.3-4.7)
[2017-01-29 06:41] LABS: BUN (Urea Nitrogen) 85 mg/dL (9.8-20.1); Calc. Creatinine Clearance 25 mL/min (70-130); Estimated GFR-MDRD 20
[2017-01-29 06:43] LABS: ALT (SGPT) 2211 U/L (8-55); AST (SGOT) 1108 U/L (5-34); Bilirubin, Direct 0.2 mg/dL (0.1-0.3)
[2017-01-29 07:59] LABS: Vancomycin, Trough 24.4 ug/mL
--- NOTE | 2017-01-29 08:29 | PDOC.PN ---
- Subjective Encounter Start Date: 01/29/17 Encounter Start Time: 08:27 Ms. Everett was seen today in follow-up of acute respiratory failure with pneumonia. She says she feels short of breath, and is complaining of some cough. - Objective MAR Reviewed: Yes Vital Signs & Weight: Vital Signs (12 hours) Temp Pulse Resp Pulse Ox 01/29/17 07:29 98.1 F 108 H 18 94 L 01/29/17 04:00 98.6 F 01/29/17 02:41 110 H 24 H 92 L 01/29/17 00:00 98.2 F Weight Admit Weight 135 lb Weight 138 lb 14.259 oz Most Recent Monitor Data Heart Rate from ECG 107 NIBP 137/98 NIBP BP-Mean 109 Respiration from ECG 23 SpO2 97 I&O: 01/28/17 01/29/17 01/30/17 06:59 06:59 06:59 Intake Total 1768 2525 Output Total 750 985 Balance 1018 1540 Result Diagrams: 01/29/17 05:20 01/29/17 06:00 Additional Labs: Accuchecks 01/28/17 01/28/17 01/28/17 23:46 16:04 08:49 POC Glucose 196 H 196 H 156 H Phys Exam - Physical Examination HEENT: PERRLA + rhonchi bilateral, rales at the bases Cardiovascular: RRR, no significant murmur Gastrointestinal: soft, non-tender, positive bowel sounds Musculoskeletal: no edema Dx/Plan (1) Acute respiratory failure Code(s): J96.00 - ACUTE RESPIRATORY FAILURE, UNSP W HYPOXIA OR HYPERCAPNIA Status: Acute (2) Pneumonia Code(s): J18.9 - PNEUMONIA, UNSPECIFIED ORGANISM Status: Acute (3) Septic shock Code(s): A41.9 - SEPSIS, UNSPECIFIED ORGANISM; R65.21 - SEVERE SEPSIS WITH SEPTIC SHOCK Status: Acute (4) Shock liver Code(s): K72.00 - ACUTE AND SUBACUTE HEPATIC FAILURE WITHOUT COMA Status: Acute (5) Acute right MCA stroke Code(s): I63.511 - CEREB INFRC D/T UNSP OCCLS OR STENOS OF RIGHT MID CEREB ART Status: Acute (6) Diabetes mellitus type 2 in nonobese Code(s): E11.9 - TYPE 2 DIABETES MELLITUS WITHOUT COMPLICATIONS Status: Acute (7) Hypertension Code(s): I10 - ESSENTIAL (PRIMARY) HYPERTENSION Status: Acute - Plan * Ms. Everett has a history of underlying COPD, and was admitted with Acute respiratory failure with septic shock with shock liver. and NSTEMI due to demand ischemia. She also developed an acute MCA CVA at or during this admission. She has improved with treatment * Pneumonia- Continue Levaquin, Cefipime, and Vancomycin * Acute renal failure- her renal function continues to worsen- a Nephrology consult has been requested * HTN- blood pressure is slightly elevated- will continue Cardizem * DM- blood glucose is stable * Acute CVA- continue aspirin rectally * Nutritional Support- is via DHT- will continue for now, however long-term nutritional support will need to be addressed at some point * Her overall condition is still quite tenuous
[2017-01-29] MEDS: Vancomycin HCl 1 GM in Premix Bag 1 BAG IVPB SCH (08:45)
[2017-01-29] MEDS: Aspirin 300 MG Suppository PR SCH (08:51)
[2017-01-29] MEDS ORDERED: Amoxicillin/Potassium Clav 875 MG TAB PO SCH ×2 (09:00→21:00)
--- NOTE | 2017-01-29 09:01 | PRG ---
DATE OF SERVICE: 01/29/2017 SERVICE: Pulmonary Medicine. INTERVAL HISTORY: The patient is doing okay from a respiratory standpoint. I find her much more anselmo ke and alert this morning. She is coughing frequently and has some rhonchus breath sounds. Otherwis e, there were no significant events overnight. PHYSICAL EXAMINATION: VITAL SIGNS: Afebrile, pulse 108, blood pressure 137/98, respirations 23, saturation 97% on 3 liters nasal cannula. GENERAL: The patient is awake and alert. She attends. She is moving all 4 extremities. HEENT: Normocephalic, atraumatic. Sclerae are white, conjunctivae pink. Oral mucosa is moist witho ut lesions. LUNGS: Rhonchorous breath sounds bilaterally. Prolonged expiratory phase and polyphonic wheezing pr esent. HEART: Tachycardic. Regular. ABDOMEN: Soft, nontender, nondistended. Bowel sounds are positive. MUSCULOSKELETAL: No cyanosis or clubbing. No pitting in the bilateral lower extremities. LABORATORY DATA: WBC is trending upward at 20.4, though the band count is settling down to 4%. Neut rophil count is increasing. Urine culture and blood cultures x2 are unremarkable. IMAGING: Abdominal x-ray demonstrates Dobbhoff tube placed in the antrum. ASSESSMENT: 1. Acute hypoxic respiratory failure. 2. Severe sepsis. 3. Community-acquired pneumonia. 4. Metabolic encephalopathy, resolved. 5. Cerebrovascular accident, suspected. 6. Chronic obstructive pulmonary disease with acute exacerbation. 7. Type 2 diabetes mellitus. 8. History of opiate use with likely acute withdrawal features, improving. PLAN: We will get MRI of the brain as soon as this becomes available once again. From my perspectiv e, she can transition out of the ICU into the IMCU, but we are going to need to keep a close watch on her for the time being. Pulmonary Critical Care will continue to follow.
--- NOTE | 2017-01-29 09:51 | CON ---
DATE OF CONSULTATION: 01/29/2017 CONSULTING PHYSICIAN: Dr. Charissa Ramírez REQUESTING PHYSICIAN: Dr. Thompson REASON FOR CONSULTATION: Acute on chronic kidney disease. IMPRESSION: 1. Acute kidney injury. This is likely multifactorial including, but not limited to the following: A. Cytokine/hemodynamically mediated injury in the context of sepsis. B. Contrast induced acute kidney injury/acute tubular necrosis. 2. Metabolic acidosis. 3. Respiratory failure. 4. Thrombocytopenia, query cause. PLAN: 1. ABG to evaluate the pH of this patient. If patient's pH in the acidic range, would change the cu rrent IV fluids to a bicarb based infusion. 2. Renal supportive measures and renally dose all medications per low GFR. Continue to hold DAWN inh ibitor. 3. Avoid any other potentially nephrotoxic agents. 4. Counseling on the need to discontinue tobacco abuse. 5. Would favor discontinuation of heparin base products. 6. No indication for renal replacement therapy; however, if renal function continues to decline to t he point of azotemic/uremic level, this modality of treatment will be considered. HISTORY OF PRESENT ILLNESS: History is that of a 61-year-old female patient who was found down at [facility] for unknown duration, brought into the hospital obtunded with evidence of respiratory failure and pneumonitis. The patient was intubated out in the field, did undergo a contrast based imaging evalua tion. The patient did present with a creatinine of 1.7. However, over the course of hospitalization , creatinine has gone up to 2.45, thus the need for renal consultation. Patient continues to make ad equate amounts of urine. PAST MEDICAL HISTORY: Tobacco abuse, CVA, hypertension, coronary artery disease and dyslipidemia. MEDICATIONS: Reviewed and as documented on Teliportme. FAMILY HISTORY: No family history of kidney disease. SOCIAL HISTORY: Significant for tobacco abuse. No alcohol, no illicit drug use. REVIEW OF SYSTEMS: Highly limited given the fact that this patient is on facemask and in significant respiratory distress. ALLERGIES: AZITHROMYCIN. LABORATORY INVESTIGATIONS: Significant as documented in the body of the history. PHYSICAL EXAMINATION: GENERAL: The patient was found to be in severe respiratory distress. VITAL SIGNS: Afebrile with temperature 98.1, pulse 108, respiratory rate 18, O2 sat 94%, blood press ure 132/98. HEENT: Unremarkable. Moist oral mucosa. Neck was supple. No conjunctival injection or icterus. CARDIOVASCULAR SYSTEM: First and second heart sounds were heard. RESPIRATORY SYSTEM: Revealed a lot of transmitted sounds. DIGESTIVE SYSTEM: Revealed a benign abdomen with positive bowel sounds. EXTREMITIES: No peripheral edema. SKIN: No new gross rash. LYMPHATICS: No peripheral lymphadenopathy. SUMMARY: A 61-year-old female patient with significant respiratory failure who is now experiencing w orsening renal failure. Thank you for this consultation. We will follow with you.
--- NOTE | 2017-01-29 10:16 | RAD ---
RADIOGRAPH CHEST 1 VIEW: Date: 01/29/17. Time: 9:36 a.m. HISTORY: A 61-year-old female with cough. COMPARISON: 01/27/17. FINDINGS: Dobbhoff feeding tube has been introduced, extending below the diaphragm with distal tip outside of t he field of view. Again noted are the cardiomegaly and bilateral pleural effusions. There is greate r superior extension of the previously demonstrated left lower lobe airspace opacity, which was previ ously confined to the retrocardiac portion. Now these alveolar infiltrates extend to the left mid kimberley ng zone and left perihilar region. Right lower lobe airspace density and consolidation remain. Pulmo nary vascular engorgement remain. No pneumothorax. IMPRESSION: 1. Congestive heart failure: cardiomegaly, pulmonary vascular engorgement, and bilateral pleural ef fusions. 2. No significant interval change in extensive airspace densities in the right lower lobe. 3. Interval worsening of left lower lobe airspace densities. 4. Interval placement of Dobbhoff feeding tube. VINCE [] POS: Jerzy
[2017-01-29] MEDS: Insulin Regular 300 UNITS/3 ML VIAL SC PRN ×3 (10:34→21:51)
[2017-01-29] MEDS: Ampicillin/Sulbactam 3 GM, Syringe 1.6 ML in Sterile Water 6.4 ML SLOW IVP SCH ×2 (11:01→21:01)
[2017-01-29] MEDS: HYDROcodone/Acetaminophen 10/325 mg Tablet PO SCH ×2 (11:09→16:44)
[2017-01-29 11:51] LABS: Modified Allen's Test POSITIVE; Oxyhemoglobin 84.6 % (94.0-97.0); Sodium 141 mmol/L (135-148); Vent NO
[2017-01-29 11:52] LABS: Mode VM
[2017-01-29] MEDS ORDERED: Furosemide 100 MG/10 ML VIAL SLOW IVP SCH (12:00)
--- NOTE | 2017-01-29 12:56 | PRG ---
DATE OF SERVICE: 01/29/2017 SUBJECTIVE: Ms. Everett is short of breath. She does have some increased respiratory rate. There is no chest pain. She is more alert. PHYSICAL EXAMINATION: VITAL SIGNS: Blood pressure 125/79, pulse is 102, it is sinus tachycardia. LUNGS: Some wheezing and expiratory rales. CARDIAC: Normal S1, S2. ABDOMEN: Soft, nontender. EXTREMITIES: No edema. ASSESSMENT: 1. Chronic obstructive pulmonary disease/respiratory failure, probably some element of diastolic dys function. 2. Brief episodes of premature atrial contractions and supraventricular tachycardia, nonsustained. PLAN: 1. Continue diltiazem. 2. Dose of intravenous Lasix being given. 3. Renal failure that has been followed by Nephrology.
--- NOTE | 2017-01-29 13:02 | PRG ---
DATE OF SERVICE: 01/29/2017 SUBJECTIVE: The patient is having some more respiratory distress. She has no GI complaints. OBJECTIVE: VITAL SIGNS: Blood pressure 126/79, pulse 102, respiratory rate is 32, temperature is 98.1. GENERAL: She is in some respiratory distress. LUNGS: Chest show bilateral rhonchi. ABDOMEN: Abdomen is benign. CARDIOVASCULAR: Regular rate and rhythm. LABORATORY DATA: Shows a CO2 17, BUN 85, creatinine 2.43, AST is 1108, ALT is 2211, total bilirubin 0.8. ASSESSMENT: 1. Ischemic hepatitis - resolving. 2. Respiratory difficulty. 3. Chronic obstructive pulmonary disease. RECOMMENDATIONS: 1. Continue to monitor LFTs. 2. We will follow at a distance.
[2017-01-29] MEDS: Cefepime 2 GM, Syringe 2.5 ML in Sterile Water 10 ML SLOW IVP SCH (17:19)
[2017-01-29] MEDS: Mirtazapine 30 MG TAB PO SCH (20:50)
[2017-01-30] MEDS: Ampicillin/Sulbactam 3 GM, Syringe 1.6 ML in Sterile Water 6.4 ML SLOW IVP SCH ×2 (00:49→04:25)
[2017-01-30] MEDS: HYDROcodone/Acetaminophen 10/325 mg Tablet PO SCH ×3 (01:41→17:05)
--- NOTE | 2017-01-30 03:38 | CON ---
DATE OF CONSULTATION: 01/29/2017 REFERRING PROVIDER: Dr. Nicholas Escobar. REASON FOR CONSULTATION: Left-sided weakness. HISTORY OF PRESENT ILLNESS: Ms. Everett is a pleasant 61-year-old female, who has been maddy rned for evaluation of left-sided weakness. History is obtained from patient's medical chart as well as nurse who is taking care of the patient. Apparently, patient was brought to the [facility] on 01/25/2017 after she was found unresponsive. Patient was found by her granddaughter to be unr esponsive and they were not able to feel a pulse and had frothy secretions in the mouth. Thus, EMS w as called. Patient was intubated in the field and was brought to the outside ER. She was found to h ave pneumonia, respiratory failure, and was thus transferred to here for higher level of care. She w as noted to be in acute respiratory failure secondary to sepsis and non-ST elevation OR. She had a C T head without contrast done, which showed remote infarct involving the right posterior parietal occi pital region. She has now been extubated and was noted to have left-sided weakness for which I am be ing asked to further evaluate. According to the patient, she has been weak in her left side for a wh ile and she had a stroke in the past. PAST MEDICAL HISTORY: Significant for hypertension, diabetes, COPD, coronary artery disease, hyperli pidemia. PAST SURGICAL HISTORY: Significant for neck surgery, back surgery, and cardiac stent placement. SOCIAL HISTORY: She smokes on a daily basis. She denies alcohol use or illicit drug use. FAMILY HISTORY: Noncontributory. CURRENT MEDICATIONS: Please review MAR. ALLERGIES: Include AZITHROMYCIN. REVIEW OF SYSTEMS: As mentioned in the HPI, otherwise negative. PHYSICAL EXAMINATION: VITAL SIGNS: Blood pressure 127/76, pulse of 101, temperature of 98.3, respirations of 22, O2 sats o f 98% on room air. GENERAL: Cachectic appearing female in no apparent distress. RESPIRATORY: Clear to auscultation bilaterally. CARDIOVASCULAR: Regular rate and rhythm. NEUROLOGIC: Mental status: The patient is awake, alert, oriented x3. Speech and language: Fluent speech. Cranial nerves: Pupils are 3 mm and reactive. Visual bernardo are intact. Extraocular muscl es are intact. No nystagmus is noted. Face is symmetric. Tongue and uvula midline. Motor exam nuria wed flaccid left upper and left lower extremity. Strength in the left upper extremity is 0/5. Left lower extremity is 0/5. Sensory diminished sensation on the left side. Deep tendon reflexes hyporef lexic throughout. Babinski: Plantar responses flexion bilaterally. LABORATORY DATA: Reviewed, which included CBC, BMP, and urinalysis, which is significant for white c ount of 20.4, hemoglobin 11.5, hematocrit of 34.3, platelet count of 120, BUN of 85, creatinine of 2. 43, glucose of 235, AST of 1108, ALT of 2211, otherwise unremarkable. 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 IMPRESSION: 1. Sepsis. 2. Pneumonia. 3. Left-sided weakness, chronic. Ms. Everett is a pleasant 61-year-old female with multiple medical problems who presented aft er being found unresponsive. This is likely secondary to underlying medical issues. Her left-sided weakness is chronic and her CAT scan shows hypodensity, which is suggestive of chronic infarction. A t this time, I will recommend continuing current medical management. No further neurologic workup ne eded from my standpoint. Thank you for consultation.
[2017-01-30 05:17] LABS: Band 1 % (5-11); Hematocrit 33.1 % (36.0-47.0); Metamyelocyte 1 % (0-0); Neutrophil 83 % (42-75); White Blood Cell (WBC) Count 20.6 thou/uL (4.8-10.8)
[2017-01-30 05:36] LABS: Anion Gap 13 mmol/L (10-20); BUN (Urea Nitrogen) 92 mg/dL (9.8-20.1); BUN/Creatinine Ratio 34.72; Calc. Creatinine Clearance 22 mL/min (70-130); Calcium 8.3 mg/dL (7.8-10.44); Carbon Dioxide 22 mmol/L (22-29); Chloride 111 mmol/L (98-107); Estimated GFR-MDRD 18; Phosphorus 1.9 mg/dL (2.3-4.7)
[2017-01-30] MEDS ORDERED: Sodium Chloride 0.45% 1,000 ML IV SCH (05:52)
[2017-01-30] MEDS ORDERED: Potassium Phosphate 30 MMOL in Sodium Chloride 0.9% 500 ML IVPB SCH (06:00)
[2017-01-30] MEDS ORDERED: Furosemide 100 MG/10 ML VIAL SLOW IVP SCH (06:00)
--- NOTE | 2017-01-30 06:29 | PRG ---
DATE OF SERVICE: 01/30/2017 SERVICE: Pulmonary Medicine. INTERVAL HISTORY: The patient is doing really quite well from a respiratory standpoint. She seems t o be improving as far as strength goes. She does have complete neglect of the left upper and lower e xtremity. There are no overnight events other than removing her BiPAP from time to time. PHYSICAL EXAMINATION: VITAL SIGNS: Afebrile, pulse 106, blood pressure 113/77, respirations 23, saturation 99 on 23% FiO2. HEENT: Normocephalic, atraumatic. Sclerae are white. Conjunctivae pink. Oral and nasal mucosa is moist without lesions. LUNGS: Decent air entry with rhonchi present. There is not much in the way of a prolonged expirator y phase or wheezing. No dependent crackles are appreciated today. HEART: Normal rate, regular. ABDOMEN: Soft, nontender, nondistended. Bowel sounds are positive. MUSCULOSKELETAL: No cyanosis or clubbing. There is no pitting in the bilateral lower extremities. NEUROLOGIC: She moves right upper and lower extremity, she does this with command and spontaneously. On the left side, she does not move her left upper or lower extremity on command. It seems that chandu betancourt has some sort of neglect on that side. She is able to move her left lower extremity with noxious s timuli and demonstrates pretty decent strength actually. She can feel pain in the left upper extremi ty, but is not able to move that arm. LABORATORY DATA: WBC 20.6, hemoglobin 10.9, platelets 120,000. Neutrophil count is 83% with an impr oving band count of only 1% at this time. INR 1.4. Potassium 2.9, creatinine 2.65 and roughly stabl e. Phosphorus 1.9. Blood cultures x2 and urine culture negative to date. ASSESSMENT: 1. Acute hypoxic respiratory failure. 2. Severe sepsis. 3. Community-acquired pneumonia. 4. Metabolic encephalopathy, resolved. 5. Cerebrovascular accident, remote with new neurologic symptoms. 6. Chronic obstructive pulmonary disease with acute exacerbation, improving. 7. Type 2 diabetes mellitus. 8. History of opiate abuse with acute withdrawal features. DISCUSSION AND PLAN: The patient at home was able to walk around without difficulty. Her current ne urologic issue is much more advanced and then what the patient's family reports her baseline is. As such, we will proceed with an MRI. I will replace potassium and phosphorus today. IV fluids will be discontinued. We will transition him over to tube feeds. We will work on mobilizing the patient to day and see if we can get her into a neuro chair. She will remain in the ICU for an additional 24 ho urs.
[2017-01-30] MEDS: Furosemide 100 MG/10 ML VIAL SLOW IVP SCH (07:24)
[2017-01-30] MEDS: Insulin Regular 300 UNITS/3 ML VIAL SC PRN ×2 (07:55→11:11)
--- NOTE | 2017-01-30 08:16 | PDOC.PN ---
- Subjective Encounter Start Date: 01/30/17 Encounter Start Time: 08:13 Ms. Everett was seen today in follow-up of pneumonia with severe sepsis. She is feeling better today than yesterday. She is less short of breath, and she appears to have less work of breathing. she confirms to me that the weakness on her left side is new. - Objective MAR Reviewed: Yes Vital Signs & Weight: Vital Signs (12 hours) Temp Pulse Resp Pulse Ox 01/30/17 06:56 98 01/30/17 06:36 93 19 97 01/30/17 04:00 98.4 F 01/30/17 02:20 96 01/30/17 00:35 98.4 F 95 18 96 01/30/17 00:12 104 H 01/30/17 00:11 98 28 H 96 01/30/17 00:00 98.6 F 01/29/17 21:39 101 H Weight Admit Weight 135 lb Weight 138 lb 7.205 oz Most Recent Monitor Data Heart Rate from ECG 91 NIBP 119/73 NIBP BP-Mean 83 Respiration from ECG 17 SpO2 96 I&O: 01/29/17 01/30/17 01/31/17 06:59 06:59 06:59 Intake Total 2525 1740.4 Output Total 985 3075 Balance 1540 -1334.6 Result Diagrams: 01/30/17 04:30 01/30/17 04:30 Additional Labs: Accuchecks 01/29/17 01/29/17 01/29/17 21:50 17:18 10:34 POC Glucose 224 H 235 H 197 H Phys Exam - Physical Examination HEENT: PERRLA Respiratory: wheezing present + rhonchi Cardiovascular: RRR, no significant murmur Gastrointestinal: soft, non-tender, positive bowel sounds Musculoskeletal: no edema Dx/Plan (1) Acute respiratory failure Code(s): J96.00 - ACUTE RESPIRATORY FAILURE, UNSP W HYPOXIA OR HYPERCAPNIA Status: Acute (2) Pneumonia Code(s): J18.9 - PNEUMONIA, UNSPECIFIED ORGANISM Status: Acute (3) Septic shock Code(s): A41.9 - SEPSIS, UNSPECIFIED ORGANISM; R65.21 - SEVERE SEPSIS WITH SEPTIC SHOCK Status: Acute (4) Shock liver Code(s): K72.00 - ACUTE AND SUBACUTE HEPATIC FAILURE WITHOUT COMA Status: Acute (5) Acute right MCA stroke Code(s): I63.511 - CEREB INFRC D/T UNSP OCCLS OR STENOS OF RIGHT MID CEREB ART Status: Acute (6) Diabetes mellitus type 2 in nonobese Code(s): E11.9 - TYPE 2 DIABETES MELLITUS WITHOUT COMPLICATIONS Status: Acute (7) Hypertension Code(s): I10 - ESSENTIAL (PRIMARY) HYPERTENSION Status: Acute - Plan * Pneumonia with acute respiratory failure with severe sepsis- She is slowly improving- Her antibiotics have been consolidated to Unasyn * Shock Liver ( Hepatic Ischemia ) - improving * Acute renal failure- worsening- continue to monitor, and avoid nephrotoxic agents, as per Nephrology * COPD- stable * DM- blood glucose is stable * HTN- blood pressure is stable. * Hypoalemia- replace K+ * Nutritional Support- via DHT.- She is much more alert now, and her speech is clearer- can possibly re-evaluate her swallow * Thrombocytopenia- likely from sepsis- this appears to be recovering
--- NOTE | 2017-01-30 09:12 | PRG ---
DATE OF SERVICE: 01/30/2017 Ms. Everett this morning is awake and alert today. PHYSICAL EXAMINATION: VITAL SIGNS: Blood pressure 119/73, pulse 100, sinus. The patient notes having chest pain. She is less short of breath. LUNGS: Some expiratory wheezing. CARDIAC: Normal S1, S2. ABDOMEN: Soft, nontender. EXTREMITIES: No edema. ASSESSMENT: 1. Chronic obstructive pulmonary disease exacerbation. 2. Status post stroke. 3. Underlying coronary disease. 4. Non-ST elevation infarction, probably demand ischemia. PLAN: 1. She continues to be aspirin. 2. Consideration for MRI is being given.
[2017-01-30] MEDS: Aspirin 300 MG Suppository PR SCH (09:21)
[2017-01-30] MEDS: Morphine 2 mg/2ml in 0.9% NaCl PF SYRINGE IV PRN ×2 (12:37→21:09)
[2017-01-30] MEDS ORDERED: Ampicillin/Sulbactam 3 GM, Syringe 1.6 ML in Sterile Water 6.4 ML SLOW IVP SCH (15:00)
--- NOTE | 2017-01-30 20:44 | PRG ---
DATE OF SERVICE: 01/30/2017 The patient was seen and examined today, still on the facemask, but seems to be improving in respirat ory recio and noted with the following vital signs. PHYSICAL EXAMINATION: VITAL SIGNS: Afebrile with temperature 98.4, pulse 93, respiratory rate of 19, O2 sat 98%. CARDIOVASCULAR: First and second heart sounds were heard. RESPIRATORY: Revealed a lot of transmitted sounds. DIGESTIVE: Revealed a benign abdomen with positive bowel sounds. EXTREMITIES: No peripheral edema. SKIN: No new gross rash. LYMPHATICS: No peripheral lymphadenopathy. LABORATORY INVESTIGATION: White count of 20,600, hemoglobin 10.9, platelets 220,000. Chemistry show ed a potassium of 2.9, creatinine 2.65 with BUN of 92, albumin 3.1, phosphorus 1.9. IMPRESSION: 1. Acute on chronic kidney disease. 2. Respiratory failure, multifactorial. 3. Hypokalemia with hypophosphatemia. PLAN: 1. Replete potassium as well as phosphorus. 2. Evaluate magnesium effect of magnesium and hypokalemia. 3. Further management we will be dependent on the clinical course. At this point, there is no indic ation for renal replacement therapy.
[2017-01-30] MEDS: Mirtazapine 30 MG TAB PO SCH (21:15)
[2017-01-30] MEDS: Amoxicillin/Potassium Clav 400 mg/5 ml Oral Suspension PO SCH (21:19)
[2017-01-31] MEDS: Insulin Regular 300 UNITS/3 ML VIAL SC PRN ×3 (00:41→21:26)
[2017-01-31] MEDS: HYDROcodone/Acetaminophen 10/325 mg Tablet PO SCH ×3 (00:44→16:58)
[2017-01-31 05:37] LABS: Anion Gap 13 mmol/L (10-20); BUN (Urea Nitrogen) 89 mg/dL (9.8-20.1); Calc. Creatinine Clearance 23 mL/min (70-130); Calcium 8.3 mg/dL (7.8-10.44); Carbon Dioxide 21 mmol/L (22-29); Chloride 117 mmol/L (98-107); Estimated GFR-MDRD 19
[2017-01-31] MEDS: Furosemide 100 MG/10 ML VIAL SLOW IVP SCH (05:47)
[2017-01-31 05:51] LABS: Band 7 % (5-11); Mean Platelet Volume 8.7 fL (7.4-10.4); Metamyelocyte 2 % (0-0); Neutrophil 75 % (42-75); Nucleated RBC 2 % (0); Reactive Lymphocytes 1 % (0-10); Red Blood Cell (RBC) Count 3.35 mill/uL (4.20-5.40); White Blood Cell (WBC) Count 27.1 thou/uL (4.8-10.8)
--- NOTE | 2017-01-31 07:48 | PDOC.PN ---
- Subjective Encounter Start Date: 01/31/17 Encounter Start Time: 07:45 Ms. Everett was seen today in follow-up of Pneumonia with severe sepsis. Ms. Everett has intermittent confusion. She says she is breathing ok. She is complaining of back pain. - Objective MAR Reviewed: Yes Vital Signs & Weight: Vital Signs (12 hours) Temp Pulse Resp BP Pulse Ox 01/31/17 07:00 97.8 F 111 H 20 129/81 92 L 01/31/17 05:47 112 H 128/80 90 L 01/31/17 05:00 92 L 01/31/17 04:00 98.4 F 115 H 26 H 134/84 91 L 01/31/17 02:16 106 H 22 H 128/76 92 L 01/31/17 01:02 103 H 16 92 L 01/31/17 00:41 107 H 01/31/17 00:00 98.3 F 101 H 22 H 134/79 92 L 01/30/17 22:43 99 22 H 117/71 91 L 01/30/17 20:00 98.2 F 101 H 20 129/86 94 L Weight Admit Weight 135 lb Weight 138 lb 5 oz Most Recent Monitor Data Heart Rate from ECG 98 NIBP 119/70 NIBP BP-Mean 95 Respiration from ECG 25 SpO2 97 I&O: 01/30/17 01/31/17 02/01/17 06:59 06:59 06:59 Intake Total 2629.4 1550 Output Total 3075 2575 Balance -445.6 -1025 Result Diagrams: 01/31/17 04:49 01/31/17 04:49 Additional Labs: Accuchecks 01/31/17 01/31/17 01/30/17 05:56 00:01 18:15 POC Glucose 208 H 221 H 203 H 01/30/17 11:10 POC Glucose 178 H Phys Exam - Physical Examination HEENT: PERRLA + rhonchi bilaterally, rales at the bases Cardiovascular: RRR, no significant murmur Gastrointestinal: soft, non-tender, positive bowel sounds Musculoskeletal: no edema Left sided weakness, she was able to close her fist on the left, and dorsi- flex her left foot Dx/Plan (1) Acute respiratory failure Code(s): J96.00 - ACUTE RESPIRATORY FAILURE, UNSP W HYPOXIA OR HYPERCAPNIA Status: Acute (2) Pneumonia Code(s): J18.9 - PNEUMONIA, UNSPECIFIED ORGANISM Status: Acute (3) Septic shock Code(s): A41.9 - SEPSIS, UNSPECIFIED ORGANISM; R65.21 - SEVERE SEPSIS WITH SEPTIC SHOCK Status: Acute (4) Shock liver Code(s): K72.00 - ACUTE AND SUBACUTE HEPATIC FAILURE WITHOUT COMA Status: Acute (5) Acute right MCA stroke Code(s): I63.511 - CEREB INFRC D/T UNSP OCCLS OR STENOS OF RIGHT MID CEREB ART Status: Acute (6) Diabetes mellitus type 2 in nonobese Code(s): E11.9 - TYPE 2 DIABETES MELLITUS WITHOUT COMPLICATIONS Status: Acute (7) Hypertension Code(s): I10 - ESSENTIAL (PRIMARY) HYPERTENSION Status: Acute - Plan * Pneumonia with severe sepsis, with multi-organ injury * Continue on Unasyn for Pneumonia * Leukocytosis- ? steroid effect- will continue to monitor * Thrombocytopenia- recovering * DM- blood glucose overall is stable * HTN- blood pressure is stable * Nutritional support with DHT feeding * Acute CVA- continue PT/OT, and aspirin- MRI ordered .
[2017-01-31] MEDS: Aspirin 300 MG Suppository PR SCH ×2 (08:49)
[2017-01-31] MEDS: Amoxicillin/Potassium Clav 400 mg/5 ml Oral Suspension PO SCH (08:49)
--- NOTE | 2017-01-31 15:29 | PRG ---
DATE OF SERVICE: 01/31/2017 SERVICE: Pulmonary Medicine. INTERVAL HISTORY: The patient is doing great from a respiratory standpoint. She is clearing her air way. She denies any current fevers, chills, nausea or vomiting. She seems to be breathing fairly co mfortably. PHYSICAL EXAMINATION: VITAL SIGNS: Afebrile, pulse 105, blood pressure 140/82, respirations 22, saturation 90% on 40% FiO2 . GENERAL: The patient is awake. She is somnolent, but does wake up and is arousable. She is followi ng commands. HEENT: Normocephalic, atraumatic. Sclerae are white, conjunctivae pink. Oral and nasal mucosa mois t without lesions. LUNGS: Decent air entry. There is a prolonged expiratory phase. Rhonchi present throughout. GENITOURINARY: Lyn catheter in place. NEUROLOGIC: Grossly nonfocal. LABORATORY DATA: WBC 27.1, hemoglobin 10.9, platelets 75,000. Band count is increasing to 7%. Crea tinine 2.59, which is roughly stable. Sodium 147. Chloride 117. Blood cultures x2 and urine cultur e unremarkable to date. IMAGING: MRI of the brain demonstrates multiple foci of embolic stroke with areas that have some hem orrhagic conversion. ASSESSMENT: 1. Acute hypoxic respiratory failure. 2. Community-acquired pneumonia. 3. Severe sepsis. 4. Metabolic encephalopathy. 5. Cerebrovascular accident, multiple embolic areas with some with hemorrhagic conversion. 6. Chronic obstructive pulmonary disease with acute exacerbation. 7. Type 2 diabetes mellitus. 8. Opiate abuse with history of acute withdrawal features. PLAN: The MRI of the brain suggests that there is some areas in which there was hemorrhagic conversi on. I will hold all anticoagulation. I am going to increase her free water. She is having increasi ng bowel movements. A sample will be sent for C. diff and will stop her stool studies. Physiotherap y will be performed twice daily. Rouse cultures going to be sent off. For the time being, we will con tinue her on empiric antibiotics and place Infectious Disease consultation.
--- NOTE | 2017-01-31 15:34 | PRG ---
DATE OF SERVICE: 01/31/2017 SUBJECTIVE: Ms. Everett is doing well after her MRI. OBJECTIVE: VITAL SIGNS: Blood pressure at 140/80, pulse is 100-110 and sinus tachycardia. LUNGS: Some rhonchi and some crackles especially left anterior. ABDOMEN: Soft and nontender. ASSESSMENT: 1. Status post non-ST elevation infarction, probably demand ischemia. 2. Chronic obstructive pulmonary disease. 3. Status post stroke. PLAN: 1. Provide low dose beta-berenice. 2. Diltiazem does not seem to be helping with sinus tachycardia. We will continue to follow with deonte shankar
--- NOTE | 2017-01-31 15:43 | MRI ---
MRI BRAIN NONCONTRAST: DATE: 01/31/17 HISTORY: 61-year-old female with altered mental status, confusion/disorientation, and left hemineglect. Dr. Segal discussed these findings by telephone with Dr. Nicholas Escobar at 2:15 p.m. on 01/31/17. COMPARISON: CT of 01/25/17. No prior MRIs. FINDINGS: The previously demonstrated large right parietal, wedge shaped region of parenchymal edema, encroachi ng upon the occipital lobe, is shown by this MRI to represent cytotoxic edema, and to have restricted diffusion. A large component of this infarction has gyriform moderate T1 hyperintensity, moderate T 2 hypointensity, and blooming on the gradient echo sequence, representing intracellular methemoglobin . The edema exerts local mass effect, distorting the right lateral ventricle, effacing the trigone an d especially the occipital horn, of the right lateral ventricle, and displacing the septum pellucidum a distance of 5 mm to the left of midline. The degree of mass effect appears to be slightly greater than on the previous CT. There is no obstructive hydrocephalus. The basal cisterns are patent and matthieu ar. In addition to this main large infarction, there are multiple scattered much smaller foci (some tiny, others small) of additional restricted diffusion consistent with additional areas of acute or subacu te infarction, in the right frontal cortex, subcortical white matter, and deep white matter; genu of bilateral internal capsules, contralateral left occipital pole, and in the bilateral cerebellar hemis pheres. At least one of these other ones, an approximately 2 x 1.5 cm lesion in the right upper front al centrum semiovale, also exhibits a small amount of hemorrhage. IMPRESSION: 1. The large right parieto-occipital subacute infarction, in the right middle cerebral artery te rritory, has undergone hemorrhagic transformation. It now exerts a somewhat greater degree of mass ef fect, with slightly greater degree of mild subfalcine herniation. 2. Numerous additional tiny and small acute or subacute infarctions in the right frontal lobe, b ilateral internal capsules, bilateral cerebellar hemispheres, and left occipital pole, in different v ascular territories, representing showering of emboli, such as from a cardiac source. 3. One of these smaller infarctions, in the right upper frontal lobe, has also undergone hemorrh agic transformation (mild). Code CR VINCE Wilder POS: [facility]
--- NOTE | 2017-01-31 16:16 | PRG ---
DATE OF SERVICE: 01/31/2017 The patient was seen and examined, still having some respiratory distress, but much improved and note d with the following vital signs. PHYSICAL EXAMINATION: VITAL SIGNS: Afebrile, temperature 97.7, pulse 102, respiratory rate 20, O2 sat 90% on 15 liters of oxygen flow, blood pressure 140/82. HEENT: Unremarkable. CARDIOVASCULAR: First and second heart sounds were heard. RESPIRATORY: Revealed a lot of transmitted sounds. DIGESTIVE: Revealed a benign abdomen. EXTREMITIES: No peripheral edema. SKIN: No new gross rash. LYMPHATICS: No peripheral lymphadenopathy. LABORATORY INVESTIGATION: Showed a sodium of 147, BUN of 89, creatinine 2.59. IMPRESSION: 1. Acute on chronic kidney disease. 2. Hypernatremia in the context of free water deficit. 3. Respiratory failure. PLAN: 1. Free water repletion. 2. Renally dose all medications per low GFR. 3. Avoid potentially nephrotoxic agents. 4. Further management to be dependent on the clinical course.
[2017-01-31] MEDS: Vancomycin HCl 1 GM in Premix Bag 1 BAG IVPB SCH (16:56)
[2017-01-31] MEDS: Dextrose 5% in Water 1,000 ML IV SCH (17:00)
[2017-01-31] MEDS: Metoprolol Tartrate 25 MG TAB PO SCH ×2 (17:36→21:24)
[2017-01-31] MEDS: Meropenem 1 GM in Sodium Chloride 0.9% 100 ML IVPB SCH (18:50)
[2017-01-31] MEDS: Mirtazapine 30 MG TAB PO SCH (21:24)
[2017-01-31 22:16] LABS: Bilirubin Negative (Negative); Blood, Urine Large (Negative); Glucose, Urine (Dipstick) Negative (Negative); Ketone, Urine Negative (Negative); Nitrite Negative (Negative); Protein, Urine (Dipstick) 100 mg/dL (Neg-Trace); Urobilinogen 0.2 mg/dL (0.2-1.0)
[2017-01-31 22:19] LABS: Bacteria/HPF None Seen HPF (None Seen); Squamous Epithelial 21-50 HPF (0-3); WBC/HPF 21-50 HPF (0-3)
[2017-01-31 22:29] LABS: Yeast-All Forms 2+ HPF (None Seen)
[2017-02-01] MEDS: Meropenem 1 GM in Sodium Chloride 0.9% 100 ML IVPB SCH (00:27)
[2017-02-01] MEDS: HYDROcodone/Acetaminophen 10/325 mg Tablet PO SCH ×3 (00:30→17:10)
[2017-02-01] MEDS: Insulin Regular 300 UNITS/3 ML VIAL SC PRN (06:08)
--- NOTE | 2017-02-01 07:49 | PDOC.PN ---
- Subjective Encounter Start Date: 02/01/17 Encounter Start Time: 07:47 Ms. Everett was seen today in follow-up. She is still confused off and on. She was asking me something about [place]omille tea. She was placed on BiPAP last night - Objective MAR Reviewed: Yes Vital Signs & Weight: Vital Signs (12 hours) Temp Pulse Resp BP Pulse Ox 02/01/17 07:11 98 02/01/17 07:09 101 H 16 97 02/01/17 06:30 101 H 16 98 02/01/17 04:13 92 L 02/01/17 04:00 98.5 F 91 19 121/68 94 L 02/01/17 03:59 95 02/01/17 02:00 88 126/77 96 02/01/17 00:37 97 18 95 02/01/17 00:28 98.7 F 73 20 132/79 95 02/01/17 00:00 15 94 L 01/31/17 22:50 97 01/31/17 20:31 99.1 F 111 H 20 138/81 92 L 01/31/17 20:00 99.1 F 97 20 92 L Weight Admit Weight 135 lb 12.876 oz Weight 136 lb 8 oz Most Recent Monitor Data Heart Rate from ECG 98 NIBP 119/70 NIBP BP-Mean 95 Respiration from ECG 25 SpO2 97 I&O: 01/31/17 02/01/17 02/02/17 06:59 06:59 06:59 Intake Total 1550 240 Output Total 2575 675 Balance -1025 -304 Result Diagrams: 01/31/17 04:49 01/31/17 04:49 Additional Labs: Accuchecks 02/01/17 01/31/17 01/31/17 06:08 20:40 18:23 POC Glucose 234 H 285 H 270 H 01/31/17 11:58 POC Glucose 169 H Phys Exam - Physical Examination HEENT: PERRLA + mild expiratory wheeze Cardiovascular: RRR, no significant murmur, no rub Gastrointestinal: soft, non-tender, positive bowel sounds Musculoskeletal: no edema Dx/Plan (1) Acute respiratory failure Code(s): J96.00 - ACUTE RESPIRATORY FAILURE, UNSP W HYPOXIA OR HYPERCAPNIA Status: Acute (2) Pneumonia Code(s): J18.9 - PNEUMONIA, UNSPECIFIED ORGANISM Status: Acute (3) Septic shock Code(s): A41.9 - SEPSIS, UNSPECIFIED ORGANISM; R65.21 - SEVERE SEPSIS WITH SEPTIC SHOCK Status: Acute (4) Shock liver Code(s): K72.00 - ACUTE AND SUBACUTE HEPATIC FAILURE WITHOUT COMA Status: Acute (5) Acute right MCA stroke Code(s): I63.511 - CEREB INFRC D/T UNSP OCCLS OR STENOS OF RIGHT MID CEREB ART Status: Acute (6) Diabetes mellitus type 2 in nonobese Code(s): E11.9 - TYPE 2 DIABETES MELLITUS WITHOUT COMPLICATIONS Status: Acute (7) Hypertension Code(s): I10 - ESSENTIAL (PRIMARY) HYPERTENSION Status: Acute - Plan * Acute CVA- MRI results noted, and she has developed hemorrhagic conversion of the CVA. Aspirin was stopped, as well as all anticoagulation * Continue PT/OT * Will re-check her CBC ( still pending this AM)- Antibiotics have been broadened to Meropenem and Vancomycin, C. Diff has been sent, and ID consulted * Pneumonia- as above, antibiotics have been broadened * HTN- blood pressure is stable * Nutritional Support- tube feeds- she is being followed by Speech Therapy, hopefully will be able to discontinue DHT feedings * DM- blood glucose is a bit labile, but will continue the current regimen. * Acute renal failure- continue management per Nephrology, and continue to monitor renal function
[2017-02-01 08:21] LABS: Anion Gap 16 mmol/L (10-20); BUN (Urea Nitrogen) 85 mg/dL (9.8-20.1); Calc. Creatinine Clearance 24 mL/min (70-130); Calcium 8.1 mg/dL (7.8-10.44); Carbon Dioxide 20 mmol/L (22-29); Chloride 114 mmol/L (98-107); Estimated GFR-MDRD 20
[2017-02-01 08:45] LABS: Band 3 % (5-11); Burr Cells SLIGHT = 2-5 cells (100X) (0-1/hpf); Hematocrit 35.1 % (36.0-47.0); Macrocytosis SLIGHT = 6-15 cells (100X) (0-5/hpf); Mean Platelet Volume 10.6 fL (7.4-10.4); Metamyelocyte 2 % (0-0); Neutrophil 86 % (42-75); Polychromasia SLIGHT = 2-3 cells (100X) (0-2/hpf); Red Blood Cell (RBC) Count 3.45 mill/uL (4.20-5.40); White Blood Cell (WBC) Count 24.6 thou/uL (4.8-10.8)
[2017-02-01] MEDS: MEROPENEM 1 GM/50 ML 1 GM in Premix Bag 1 BAG IVPB SCH ×2 (09:28→17:32)
[2017-02-01] MEDS: Metoprolol Tartrate 25 MG TAB PO SCH ×2 (09:29→20:56)
[2017-02-01] MEDS: Aspirin 300 MG Suppository PR SCH (09:31)
--- NOTE | 2017-02-01 09:37 | RAD ---
PORTABLE SEMI UPRIGHT ABDOMINAL RADIOGRAPHS: Date: 02-01-17 Comparison: 01-28-17 History: Verify Dobbhoff tube placement. FINDINGS: A Dobbhoff tube is present, distal tip overlying the L4-5 disc interspace, presumably in an enlarged or elongated stomach. There is extensive interstitial and alveolar opacities within bilateral perihil ar regions in both lungs bases with associated bilateral pleural effusions, not fully characterized o n this exam. There is atherosclerotic calcification in the aortic arch. IMPRESSION: Dobbhoff tube in place. Extensive interstitial and alveolar opacity with bilateral pleural effusions suggest infectious pneumonitis and/or pulmonary edema. POS: [facility]
[2017-02-01] MEDS: Dextrose 5% in Water 1,000 ML IV SCH (11:17)
[2017-02-01] MEDS ORDERED: Furosemide 40 MG/4 ML VIAL SLOW IVP SCH (13:00)
--- NOTE | 2017-02-01 13:23 | PRG ---
DATE OF SERVICE: 02/01/2017 SUBJECTIVE: Ms. Everett was doing worse today. She is less responsive. The CT scan reveals multiple strokes with some hemorrhagic conversion. OBJECTIVE: VITAL SIGNS: Her blood pressure is 143/84, pulse is 110-120, sinus. LUNGS: Diffuse rhonchi. CARDIAC: Tachycardic. ABDOMEN: Soft and nontender. ASSESSMENT: 1. Status post cerebrovascular accident as outlined above (stroke). 2. Chronic obstructive pulmonary disease. 3. Status post non-ST elevation infarction, looks like demand ischemia. 4. Worsening renal failure, creatinine is 2.48. PLAN: 1. Give her one additional dose of Lasix. 2. Check BNP tomorrow. 3. Family consultation is being held about code status.
--- NOTE | 2017-02-01 15:20 | PRG ---
DATE OF SERVICE: 02/01/2017 SERVICE: Pulmonary Medicine. INTERVAL HISTORY: The patient is doing a little bit better from a neurologic standpoint. Yesterday we got a MRI, demonstrating multiple foci of stroke with some areas that have a hemorrhagic conversio n. She denies any current fevers, chills, nausea, vomiting. She said it is comfortable, although sh e looks to be working a little bit hard. She seems to be moving the left arm and leg a little bit mo re freely. PHYSICAL EXAMINATION: VITAL SIGNS: Afebrile, pulse 101, blood pressure 133/79, respirations 16, and saturation 98% on room air. GENERAL: The patient is awake, alert, in no apparent distress. LUNGS: Decent air entry. There is a prolonged expiratory phase, but no wheezing. Extensive cracker present throughout, but are more predominant on the left. HEART: Normal rate, regular. ABDOMEN: Soft, nontender, nondistended, bowel sounds positive. MUSCULOSKELETAL: No cyanosis or clubbing. No pitting in the bilateral lower extremities. NEUROLOGIC: Grossly nonfocal. LABORATORY DATA: WBC 24.6, hemoglobin 11.2, platelets 106,000. Neutrophil count is 86%, the band co unt is starting to drop off again to 3%. C. diff antigen and toxin are negative. IMAGING: Abdominal x-ray demonstrates good placement of the Dobbhoff tube. There are extensive inte rstitial and alveolar opacities in bilateral pleural effusions. ASSESSMENT: 1. Acute hypoxic respiratory failure. 2. Community-acquired pneumonia. 3. Severe sepsis. 4. Metabolic encephalopathy. 5. Cerebrovascular accident, multiple embolic areas with some hemorrhagic conversion. 6. Chronic obstructive pulmonary disease with acute exacerbation. 7. Type 2 diabetes mellitus. 8. History of opiate abuse with previous withdraw features, currently resolved. PLAN: We will hold anticoagulation and antiplatelet medications for the time being. C. diff was neg ative, which is reassuring. Broad spectrum antibiotics have been initiated and the patient seems to be responding so far. We will continue our mobilization efforts. Her oxygen requirements are actual ly increasing a little bit. My suspicion is that she is having recurrent aspiration related diseases . I will give her another dose of Lasix. We will need to continue the free water for her hyponatrem ia. I talked with the daughter today. If she has any further respiratory decompensation, choices ar e going to be too full. We can intubate, with plans of tracheostomy to give her enough time for her brain to recover as much function as it is going to. At some point in the future by 1-2 months, if t here is not enough brain function there, then we can decide whether or not transition or comfort care only would be appropriate. Our other alternative would be to transition over to comfort care instea d of repeat intubation. I do think that we have 24-48 hours before we are going to pressed to make t his decision, however.
[2017-02-01] MEDS: Morphine 2 mg/2ml in 0.9% NaCl PF SYRINGE IV PRN (15:50)
[2017-02-01] MEDS ORDERED: Lorazepam 2 MG/ML VIAL SLOW IVP PRN (16:02)
[2017-02-01] MEDS ORDERED: Labetalol HCl 100 MG/20 ML VIAL SLOW IVP PRN (16:30)
[2017-02-01] MEDS: Vancomycin HCl 1 GM in Premix Bag 1 BAG IVPB SCH (16:40)
--- NOTE | 2017-02-01 18:06 | PRG ---
DATE OF SERVICE: 02/01/2017 Thirty minutes critical care time. Ms. Everett has taken a turn for the worse. She has become increasingly lethargic and symptoms combative. She has developed, increasing hypoxemia and runs of SVT. I spoke to her daughter at length in the crisis room and I reviewed Dr. Escobar notes and viewed the patient's. scans. She has a stroke, which is evolve to hemorrhagic stroke, and I think is likely to progress. The daughter understands this. I told her I thought that we should put DNR order on the chart and focus on comfort care. The daughter says this is what her mom would what if she could speak for herself. Orders have been written for the DNR , Ativan and morphine as needed for comfort. BARBIE
[2017-02-01] MEDS: Mirtazapine 30 MG TAB PO SCH (20:56)
[2017-02-01] MEDS: Morphine 10 MG/ML CARPUJECT SLOW IVP PRN (21:02)
--- NOTE | 2017-02-01 21:23 | PRG ---
DATE OF SERVICE: 02/01/2017 SUBJECTIVE: The patient is seen and noted with the following vital signs. OBJECTIVE: VITAL SIGNS: Afebrile with temperature 99.4, (00:08), respirations 20, blood pressure 123/82 a nd O2 sat of 91%. HEENT: Unremarkable except for CARDIOVASCULAR SYSTEM: First and second heart sounds . RESPIRATORY SYSTEM: . LABORATORY INVESTIGATION: IMPRESSION: 1. Acute on chronic kidney disease. 2. Respiratory failure . 3. 4. 5. PLAN: 1. Free water repletion. 2. P.r.n. diuresis. 3. Further management is per the primary team and the Pulmonary .
[2017-02-02] MEDS: HYDROcodone/Acetaminophen 10/325 mg Tablet PO SCH ×3 (00:23→16:10)
[2017-02-02] MEDS: MEROPENEM 1 GM/50 ML 1 GM in Premix Bag 1 BAG IVPB SCH ×4 (00:23→23:29)
[2017-02-02] MEDS: Insulin Regular 300 UNITS/3 ML VIAL SC PRN ×2 (00:24→18:19)
[2017-02-02] MEDS: Dextrose 5% in Water 500 ML IV SCH ×4 (00:37→22:25)
[2017-02-02 05:32] LABS: Anion Gap 10 mmol/L (10-20); BUN (Urea Nitrogen) 85 mg/dL (9.8-20.1); Calc. Creatinine Clearance 26 mL/min (70-130); Calcium 7.9 mg/dL (7.8-10.44); Carbon Dioxide 27 mmol/L (22-29); Chloride 113 mmol/L (98-107); Estimated GFR-MDRD 22
[2017-02-02 05:58] LABS: Band 7 % (5-11); Hematocrit 33.1 % (36.0-47.0); Mean Platelet Volume 8.4 fL (7.4-10.4); Neutrophil 80 % (42-75); Red Blood Cell (RBC) Count 3.25 mill/uL (4.20-5.40); White Blood Cell (WBC) Count 22.5 thou/uL (4.8-10.8)
--- NOTE | 2017-02-02 07:49 | PDOC.PN ---
- Subjective Encounter Start Date: 02/02/17 Encounter Start Time: 07:47 Ms. Everett was seen today in followup. She denied any complaints. She appears comfortable this morning. The events of last night were noted. - Objective Resuscitation Status: Resuscitation Status DNR:Do Not Resuscitate MAR Reviewed: Yes Vital Signs & Weight: Vital Signs (12 hours) Temp Pulse Resp BP Pulse Ox 02/02/17 07:00 99.5 F 95 24 H 113/59 L 97 02/02/17 04:00 99.0 F 90 18 105/60 98 02/02/17 02:35 98 02/02/17 01:17 97 02/02/17 00:52 98 20 97 02/02/17 00:00 99.4 F 100 20 113/67 96 02/01/17 23:12 101 H 02/01/17 20:00 100.7 F H 96 22 H 94 L Weight Admit Weight 135 lb 12.876 oz Weight 137 lb 3.099 oz Most Recent Monitor Data Heart Rate from ECG 98 NIBP 119/70 NIBP BP-Mean 95 Respiration from ECG 25 SpO2 97 I&O: 02/01/17 02/02/17 02/03/17 06:59 06:59 06:59 Intake Total 2100 1640 Output Total 675 1900 Balance 1425 -260 Result Diagrams: 02/02/17 04:25 02/02/17 04:25 Additional Labs: Accuchecks 02/02/17 02/02/17 02/01/17 05:52 00:11 18:01 POC Glucose 190 H 249 H 289 H 02/01/17 11:58 POC Glucose 159 H Phys Exam - Physical Examination HEENT: PERRLA Respiratory: no rales + rhonchi bilaterally, ocasional wheeze Cardiovascular: RRR, no significant murmur, no rub Gastrointestinal: soft, non-tender, positive bowel sounds Musculoskeletal: no edema Dx/Plan (1) Acute respiratory failure Code(s): J96.00 - ACUTE RESPIRATORY FAILURE, UNSP W HYPOXIA OR HYPERCAPNIA Status: Acute (2) Pneumonia Code(s): J18.9 - PNEUMONIA, UNSPECIFIED ORGANISM Status: Acute (3) Septic shock Code(s): A41.9 - SEPSIS, UNSPECIFIED ORGANISM; R65.21 - SEVERE SEPSIS WITH SEPTIC SHOCK Status: Acute (4) Shock liver Code(s): K72.00 - ACUTE AND SUBACUTE HEPATIC FAILURE WITHOUT COMA Status: Acute (5) Acute right MCA stroke Code(s): I63.511 - CEREB INFRC D/T UNSP OCCLS OR STENOS OF RIGHT MID CEREB ART Status: Acute (6) Diabetes mellitus type 2 in nonobese Code(s): E11.9 - TYPE 2 DIABETES MELLITUS WITHOUT COMPLICATIONS Status: Acute (7) Hypertension Code(s): I10 - ESSENTIAL (PRIMARY) HYPERTENSION Status: Acute - Plan * Ms. Everett's condition worsened through the day yesterday. She became more lethargic hypoxic and confused. She had several episodes of SVT. Her Code status has been changed to DNR. * Acute large MCA CVA with Hemorrhagic conversion- continue conservative management, and aspirin and lovenox /heparin are being held * Pneumonia- Antibiotics have been broadened to Meropenem and Vancomycin * Acute renal failure- renal function has plateaued. will continue to monitor, renal dose medications * Nutritional support- tube feeds via DHT * SVT- her heart rate is stable * DM- blood glucose is stable * Continue Palliative support for the patient and family * Condition is guarded
[2017-02-02] MEDS: Metoprolol Tartrate 25 MG TAB PO SCH ×2 (09:26→22:10)
--- NOTE | 2017-02-02 11:54 | PRG ---
DATE OF SERVICE: 02/02/2017 SERVICE: Pulmonary Medicine. INTERVAL HISTORY: The patient is doing okay from a respiratory standpoint. She is not really cleari ng her airway. She requires aggressive physiotherapy to prevent her from getting into any significan t respiratory distress. She worked with physical therapy today. All she could master was sitting on the side of bed for about 4 minutes before she was so exhausted, she had to get back in bed. She re nate somnolent. She does follow commands and is arousable. That being said, she remains extraordin arily sleepy. PHYSICAL EXAMINATION: VITAL SIGNS: Currently, afebrile with T-max overnight of 100.7, pulse 100, blood pressure 113/59, re spirations 24, and saturation 95% on 40% FiO2. GENERAL: Patient is awake, alert, in no apparent distress. LUNGS: Bilateral rhonchi are present. There is not a prolonged expiratory phase, but wheezing is ev ident. No crackles. HEART: Normal rate, regular. ABDOMEN: Soft, nontender, nondistended. Bowel sounds are positive. MUSCULOSKELETAL: No cyanosis or clubbing. There is no pitting in the bilateral lower extremities. NEUROLOGIC: Grossly nonfocal. LABORATORY DATA: WBC is gently downtrending to 22.5, though the band count has increased to 87. The total neutrophil count is gently trended downward. Hemoglobin, and platelets are roughly stable. Sodium is 146 and stable. Creatinine 2.30 and generally trending downward. BUN remains elevated a t 85, but is also stable. BNP is trending upward to 4700. Urine Lyn catheter is growing yeast spe cies. C. diff antigen and toxin is negative. One out of two blood cultures are growing coag negativ e Staph. ASSESSMENT: 1. Acute hypoxic respiratory failure. 2. Community-acquired pneumonia. 3. Cerebrovascular accident, multiple embolic areas with hemorrhagic conversion. 4. Severe sepsis. 5. Chronic obstructive pulmonary disease with acute exacerbation, resolved. 6. Type 2 diabetes mellitus. 7. Opiate abuse with previous withdraw features. PLAN: We will continue supportive care as the patient can tolerate. She is currently a DNR/DNI. As such, reintubation will not be entertained. That being said, we are not transitioning over to comfo rt care only at this time. We are going to be continued to be as aggressive as possible short of int ubation. We will keep her antibiotic for at least 7-10 days and continue to watch her inflammatory p rofile. I will give her a dose of Lasix today is her BNP continues to climb and she does have minima l evidence of volume overload. Aggressive mobilization efforts will be considered along the way. I will be continued along the way.
[2017-02-02] MEDS ORDERED: Furosemide 40 MG/4 ML VIAL SLOW IVP SCH (15:00)
--- NOTE | 2017-02-02 15:34 | PRG ---
DATE OF SERVICE: 02/02/2017 SUBJECTIVE: Ms. Everett is actually talking some today. She does not appear to be oriented. She is moaning a lot. PHYSICAL EXAMINATION: VITAL SIGNS: Blood pressure 127/65, pulse 105, regular. LUNGS: Rales. No wheezing. CARDIAC: Normal S1, normal S2, but she is tachycardic. LABORATORY DATA: BNP markedly elevated. ASSESSMENT: 1. Diastolic heart failure. 2. History of asthma. 3. Coronary artery disease. 4. Stroke ischemic and hemorrhage. PLAN: 1. Give daily Lasix. 2. Potassium 3. CODE STATUS: Do not resuscitate. Prognosis guarded.
[2017-02-02] MEDS: Vancomycin HCl 1 GM in Premix Bag 1 BAG IVPB SCH (16:08)
[2017-02-02] MEDS: Ondansetron HCl/PF 4 MG/2 ML Vial SLOW IVP PRN (16:53)
--- NOTE | 2017-02-02 17:03 | PRG ---
DATE OF SERVICE: 02/02/2017 SUBJECTIVE: The patient was seen and examined. PHYSICAL EXAMINATION: VITAL SIGNS: Noted with following vital signs: Febrile, temperature 100.8, pulse 116, respiratory r ate 20, O2 sat 92, blood pressure 133/67. HEENT: Unremarkable with moist oral mucosa. Neck was supple. No conjunctival injection or icterus. CARDIOVASCULAR: First and second heart sounds were heard. RESPIRATORY: Reveals a lot of transmitted sounds. ABDOMEN: Digestive system revealed a benign abdomen. EXTREMITIES: No peripheral edema. LABORATORY: White count of 22,500, hemoglobin 10.7. Chemistry showed a sodium of 146, creatinine 2. 3, BUN of 85. BNP 4774. IMPRESSION: 1. Acute on chronic kidney disease. 2. Hypervolemia/congestive heart failure. 3. Hypernatremia. PLAN: 1. Free water repletion. 2. Diuresis. 3. Further management to be dependent on the clinical course. 4. Continue renal supportive measures.
[2017-02-02] MEDS: Mirtazapine 30 MG TAB PO SCH (22:10)
[2017-02-03] MEDS: HYDROcodone/Acetaminophen 10/325 mg Tablet PO SCH ×3 (01:55→16:23)
[2017-02-03] MEDS: Dextrose 5% in Water 500 ML IV SCH ×4 (05:21→21:21)
[2017-02-03 06:50] LABS: Anion Gap 14 mmol/L (10-20); BUN (Urea Nitrogen) 88 mg/dL (9.8-20.1); Calc. Creatinine Clearance 25 mL/min (70-130); Calcium 7.8 mg/dL (7.8-10.44); Carbon Dioxide 23 mmol/L (22-29); Chloride 113 mmol/L (98-107); Estimated GFR-MDRD 23
[2017-02-03 06:59] LABS: Band 2 % (5-11); Hematocrit 38.1 % (36.0-47.0); Neutrophil 88 % (42-75); White Blood Cell (WBC) Count 23.6 thou/uL (4.8-10.8)
[2017-02-03] MEDS: MEROPENEM 1 GM/50 ML 1 GM in Premix Bag 1 BAG IVPB SCH ×2 (09:44→16:29)
[2017-02-03] MEDS: Furosemide 40 MG/4 ML VIAL SLOW IVP SCH (09:45)
[2017-02-03] MEDS: Metoprolol Tartrate 25 MG TAB PO SCH ×2 (09:46→21:05)
[2017-02-03] MEDS: Ondansetron HCl/PF 4 MG/2 ML Vial SLOW IVP PRN (12:30)
--- NOTE | 2017-02-03 13:25 | PDOC.CTH ---
Cardiology Progress Note - Subjective No new issues. her breathing is comfortable at this time but still needing supplemental O2. - Objective Vital Signs Temp Pulse Resp BP Pulse Ox 02/03/17 12:08 95 18 95 02/03/17 11:08 99.9 F H 89 16 115/61 97 02/03/17 08:00 100.8 F H 97 20 96 02/03/17 07:06 100.8 F H 97 20 112/64 96 02/03/17 06:32 103 H 20 96 02/03/17 06:30 92 20 95 02/03/17 04:00 99.9 F H 103 H 22 H 119/66 96 Admit Weight 135 lb 12.876 oz Weight 129 lb 14.4 oz 02/02/17 02/03/17 02/04/17 06:59 06:59 06:59 Intake Total 1640 1670 Output Total 1900 4385 Balance -803 -326 - Physical Examination General/Neuro: NAD Neck: no JVD present Lungs: unlabored respirations Heart: RRR Abdomen: NT/ND Extremities: other: (no edema) - Telemetry Telemetry Rhythm: NSR - Labs Result Diagrams: 02/03/17 05:25 02/03/17 05:25 Troponin/CKMB CK-MB (CK-2) 13.1 ng/mL (0-6.6) H* 01/25/17 02:10 Troponin I 4.513 ng/mL (< 0.028) H* 01/26/17 03:40 - Assessment/Plan 1. Acute on chronic diastolic heart failure 2. Asthma 3. CAD, stable 4. Hx of Ischemic and hemorrhagic CVA PLAN: - Continue IV lasix - Continue other meds.
--- NOTE | 2017-02-03 14:41 | PDOC.PN ---
- Subjective Encounter Start Date: 02/03/17 Encounter Start Time: 09:30 breathing improved. no acute night events or new complaints at this time - Objective Resuscitation Status: Resuscitation Status DNR:Do Not Resuscitate Vital Signs & Weight: Vital Signs (12 hours) Temp Pulse Resp BP Pulse Ox 02/03/17 12:08 95 18 95 02/03/17 11:08 99.9 F H 89 16 115/61 97 02/03/17 08:00 100.8 F H 97 20 96 02/03/17 07:06 100.8 F H 97 20 112/64 96 02/03/17 06:32 103 H 20 96 02/03/17 06:30 92 20 95 02/03/17 04:00 99.9 F H 103 H 22 H 119/66 96 Weight Admit Weight 135 lb 12.876 oz Weight 129 lb 14.4 oz Most Recent Monitor Data Heart Rate from ECG 98 NIBP 119/70 NIBP BP-Mean 95 Respiration from ECG 25 SpO2 97 I&O: 02/02/17 02/03/17 02/04/17 06:59 06:59 06:59 Intake Total 1640 1670 Output Total 1900 2325 Balance -260 -960 Result Diagrams: 02/03/17 05:25 02/03/17 05:25 Additional Labs: Accuchecks 02/03/17 02/03/17 02/02/17 11:58 05:48 23:43 POC Glucose 198 H 165 H 181 H 02/02/17 18:16 POC Glucose 298 H Phys Exam - Physical Examination Constitutional: NAD HEENT: PERRLA, moist MMs, sclera anicteric Neck: no JVD, supple Respiratory: wheezing present rhonchi present b/l Cardiovascular: RRR, no significant murmur Gastrointestinal: soft, non-tender, no distention, positive bowel sounds Musculoskeletal: pulses present Deviation from normal: awake and alert Skin: normal turgor, cap refill <2 seconds Dx/Plan (1) Acute respiratory failure Code(s): J96.00 - ACUTE RESPIRATORY FAILURE, UNSP W HYPOXIA OR HYPERCAPNIA Status: Acute (2) Acute right MCA stroke Code(s): I63.511 - CEREB INFRC D/T UNSP OCCLS OR STENOS OF RIGHT MID CEREB ART Status: Acute (3) Diabetes mellitus type 2 in nonobese Code(s): E11.9 - TYPE 2 DIABETES MELLITUS WITHOUT COMPLICATIONS Status: Acute (4) Hypertension Code(s): I10 - ESSENTIAL (PRIMARY) HYPERTENSION Status: Acute (5) Pneumonia Code(s): J18.9 - PNEUMONIA, UNSPECIFIED ORGANISM Status: Acute (6) Septic shock Code(s): A41.9 - SEPSIS, UNSPECIFIED ORGANISM; R65.21 - SEVERE SEPSIS WITH SEPTIC SHOCK Status: Acute (7) Shock liver Code(s): K72.00 - ACUTE AND SUBACUTE HEPATIC FAILURE WITHOUT COMA Status: Acute - Plan cont current plan of care, plan discussed w/ family, continue antibiotics, respiratory therapy * . continue current plan DNR/DNI but will still be aggressive with current medical therapy at this time
[2017-02-03 15:27] LABS: Vancomycin, Random 16.3 ug/mL (See Comment)
--- NOTE | 2017-02-03 15:49 | PRG ---
DATE OF SERVICE: 02/03/2017 SUBJECTIVE: The patient was noted to be lethargic. OBJECTIVE: VITAL SIGNS: Noted with the following vital signs. Temperature 99.9, T-max 100.8, pulse 89, respira tory rate 16, O2 sat 97% on 4 liters, blood pressure 115/61. HEENT: Facemask in place. CARDIOVASCULAR: First and second heart sounds were heard, tachycardic. RESPIRATORY: Revealed a lot of transmitted sounds. DIGESTIVE: Revealed a benign abdomen with positive bowel sounds. EXTREMITIES: No peripheral edema. SKIN: No new gross rash. LYMPHATICS: No peripheral lymphadenopathy. LABORATORY INVESTIGATIONS: Showed a creatinine down to 2.2 with BUN of 88, sodium of 146. IMPRESSION: 1. Hypernatremia in the context of free water deficit. 2. Acute on chronic kidney disease which seems to have improved. PLAN: 1. Continue with current renal supportive measures. 2. Further management will be dependent on the clinical course.
--- NOTE | 2017-02-03 15:56 | PRG ---
DATE OF SERVICE: 02/03/2017 SERVICE: Pulmonary Medicine. INTERVAL HISTORY: The patient is doing great from a respiratory standpoint. She is breathing much m ore comfortably. She is not nearly as encephalopathic as she previously was. There were no signific ant overnight events. She is tolerating physiotherapy fairly well. PHYSICAL EXAMINATION: VITAL SIGNS: T-max 101.1 and up-trending. Pulse 95, blood pressure 123/69, respirations 20, saturat ion 96% on 4 liters nasal cannula. GENERAL: Patient is awake and alert, in no apparent distress. LUNGS: Decent air entry. Rhonchi are present. No prolonged expiratory phase or wheezing is appreci ated. HEART: Normal rate, regular. ABDOMEN: Soft, nontender, nondistended. Bowel sounds positive. MUSCULOSKELETAL: No cyanosis or clubbing. No pitting in the bilateral lower extremities. LABORATORY DATA: WBC 23.6. Band count is actually decreasing. Neutrophil count is roughly stable. Hemoglobin and platelets are stable. INR 1.4. Sodium 146 and stable. Chloride 113, creatinine 2.2 and gently down trending. BUN is 88 and still elevated. Vancomycin trough is 16. ASSESSMENT: 1. Acute hypoxic respiratory failure. 2. Community-acquired pneumonia. 3. Severe sepsis with recrudescence of symptoms. 4. Cerebrovascular accident with multiple areas of hemorrhagic conversion. 5. Severe sepsis. 6. Chronic obstructive pulmonary disease with acute exacerbation, resolved. 7. Type 2 diabetes mellitus. 8. Opiate abuse with previous withdrawal features. PLAN: We will keep the patient in the IMCU. We will continue pulmonary toileting. Repeat cultures have been obtained. We will continue with progressive mobilization efforts. She is extraordinarily high risk for decompensation moving forward, but she is a DNI/DNR at this time. Given the significan t neurologic injury she suffered, I do think this is appropriate.
[2017-02-03] MEDS: Acetaminophen 325 MG TAB PO PRN (16:24)
[2017-02-03] MEDS: Micafungin 100 MG in Sodium Chloride 0.9% 100 ML IVPB SCH (18:12)
[2017-02-03] MEDS: Vancomycin HCl 750 MG in Sodium Chloride 0.9% 250 ML 250 ML IVPB SCH (18:12)
[2017-02-03] MEDS: Insulin Regular 300 UNITS/3 ML VIAL SC PRN ×2 (18:22→21:06)
[2017-02-03] MEDS: Mirtazapine 30 MG TAB PO SCH (21:05)
[2017-02-04] MEDS: HYDROcodone/Acetaminophen 10/325 mg Tablet PO SCH ×3 (00:21→16:15)
[2017-02-04] MEDS: MEROPENEM 1 GM/50 ML 1 GM in Premix Bag 1 BAG IVPB SCH ×3 (00:22→16:12)
[2017-02-04 05:05] LABS: Anion Gap 11 mmol/L (10-20); BUN (Urea Nitrogen) 88 mg/dL (9.8-20.1); Calc. Creatinine Clearance 27 mL/min (70-130); Carbon Dioxide 27 mmol/L (22-29); Chloride 112 mmol/L (98-107); Estimated GFR-MDRD 25
[2017-02-04] MEDS: Dextrose 5% in Water 500 ML IV SCH ×3 (05:14→22:14)
[2017-02-04 06:07] LABS: Hematocrit 37.3 % (36.0-47.0); Mean Platelet Volume 8.4 fL (7.4-10.4); Neutrophil 91 % (42-75); Red Blood Cell (RBC) Count 3.64 mill/uL (4.20-5.40); White Blood Cell (WBC) Count 23.7 thou/uL (4.8-10.8)
[2017-02-04] MEDS: Insulin Regular 300 UNITS/3 ML VIAL SC PRN ×3 (06:13→17:35)
[2017-02-04] MEDS: Furosemide 40 MG/4 ML VIAL SLOW IVP SCH (08:25)
[2017-02-04] MEDS: Metoprolol Tartrate 25 MG TAB PO SCH ×2 (08:26→20:33)
--- NOTE | 2017-02-04 11:18 | PDOC.PN ---
- Subjective Encounter Start Date: 02/04/17 Encounter Start Time: 11:16 no acute night events breathing continues to improve. breathing more comfortably - Objective Resuscitation Status: Resuscitation Status DNR:Do Not Resuscitate Vital Signs & Weight: Vital Signs (12 hours) Temp Pulse Resp BP Pulse Ox 02/04/17 11:10 98.2 F 77 18 128/72 100 02/04/17 10:55 95 02/04/17 10:54 80 16 02/04/17 08:00 98.3 F 95 16 02/04/17 07:18 98.3 F 95 16 121/67 95 02/04/17 04:00 99.1 F 100 22 H 115/63 96 02/04/17 02:04 99 18 113/67 92 L 02/04/17 00:30 97 20 95 02/04/17 00:00 99.9 F H 72 22 H 128/62 95 Weight Admit Weight 135 lb 12.876 oz Weight 133 lb 8 oz Most Recent Monitor Data Heart Rate from ECG 98 NIBP 119/70 NIBP BP-Mean 95 Respiration from ECG 25 SpO2 97 I&O: 02/03/17 02/04/17 02/05/17 06:59 06:59 06:59 Intake Total 1670 3365 Output Total 2325 2350 Balance -655 1015 Result Diagrams: 02/04/17 04:37 02/04/17 04:37 Additional Labs: Accuchecks 02/04/17 02/03/17 02/03/17 05:45 23:46 20:53 POC Glucose 162 H 156 H 214 H 02/03/17 02/03/17 17:59 11:58 POC Glucose 310 H 198 H Phys Exam - Physical Examination Constitutional: NAD HEENT: PERRLA, moist MMs, sclera anicteric Neck: no JVD, supple Respiratory: no wheezing, no rales rhonchi B/L-mild Cardiovascular: RRR, no rub Gastrointestinal: soft, non-tender, no distention Musculoskeletal: pulses present Neurological: moves all 4 limbs Lymphatic: no nodes Psychiatric: normal affect Skin: cap refill <2 seconds Dx/Plan (1) Acute respiratory failure Code(s): J96.00 - ACUTE RESPIRATORY FAILURE, UNSP W HYPOXIA OR HYPERCAPNIA Status: Acute (2) Acute right MCA stroke Code(s): I63.511 - CEREB INFRC D/T UNSP OCCLS OR STENOS OF RIGHT MID CEREB ART Status: Acute (3) Diabetes mellitus type 2 in nonobese Code(s): E11.9 - TYPE 2 DIABETES MELLITUS WITHOUT COMPLICATIONS Status: Acute (4) Hypertension Code(s): I10 - ESSENTIAL (PRIMARY) HYPERTENSION Status: Acute (5) Pneumonia Code(s): J18.9 - PNEUMONIA, UNSPECIFIED ORGANISM Status: Acute (6) Septic shock Code(s): A41.9 - SEPSIS, UNSPECIFIED ORGANISM; R65.21 - SEVERE SEPSIS WITH SEPTIC SHOCK Status: Acute (7) Shock liver Code(s): K72.00 - ACUTE AND SUBACUTE HEPATIC FAILURE WITHOUT COMA Status: Acute - Plan cont current plan of care, continue antibiotics, PT/OT, respiratory therapy * . continue IV abx pulmonary toilet DRN/DNI but aggressively treating with current medical mgmt pending final cultures pulm following. follow recs accordingly
--- NOTE | 2017-02-04 12:44 | PDOC.CTH ---
Cardiology Progress Note - Subjective Working well with PT. No new issues. - Objective Vital Signs Temp Pulse Resp BP Pulse Ox 02/04/17 11:10 98.2 F 77 18 128/72 100 02/04/17 10:55 95 02/04/17 10:54 80 16 02/04/17 08:00 98.3 F 95 16 02/04/17 07:18 98.3 F 95 16 121/67 95 02/04/17 04:00 99.1 F 100 22 H 115/63 96 02/04/17 02:04 99 18 113/67 92 L Admit Weight 135 lb 12.876 oz Weight 133 lb 8 oz 02/03/17 02/04/17 02/05/17 06:59 06:59 06:59 Intake Total 1670 3365 Output Total 2325 2350 Balance -655 1015 - Physical Examination General/Neuro: NAD Neck: no JVD present Lungs: unlabored respirations Heart: RRR Abdomen: NT/ND Extremities: other: (no edema) - Telemetry Telemetry Rhythm: NSR - Labs Result Diagrams: 02/04/17 04:37 02/04/17 04:37 Troponin/CKMB CK-MB (CK-2) 13.1 ng/mL (0-6.6) H* 01/25/17 02:10 Troponin I 4.513 ng/mL (< 0.028) H* 01/26/17 03:40 - Assessment/Plan 1. Acute on chronic diastolic heart failure 2. Asthma 3. CAD, stable 4. Hx of Ischemic and hemorrhagic CVA PLAN: - Continue IV lasix at current daily dose, creatinine continues to improve. - Continue other meds.
[2017-02-04] MEDS: Vancomycin HCl 750 MG in Sodium Chloride 0.9% 250 ML 250 ML IVPB SCH (16:15)
[2017-02-04] MEDS: Acetaminophen 325 MG TAB PO PRN (16:16)
[2017-02-04] MEDS: Micafungin 100 MG in Sodium Chloride 0.9% 100 ML IVPB SCH (16:16)
--- NOTE | 2017-02-04 18:02 | PRG ---
DATE OF SERVICE: 02/04/2017 SERVICE: Pulmonary Medicine. INTERVAL HISTORY: The patient is doing okay from a respiratory standpoint. She continues to grunt w henever she is breathing. That being said, she indicates breathing a little bit more comfortably tod ay. She denies any current fevers, chills, nausea, or vomiting. Otherwise, there were no significan t overnight events. Her white blood cell count remains elevated. PHYSICAL EXAMINATION: VITAL SIGNS: T-max 101.1, pulse 104, blood pressure 125/73, respirations 18, saturation 95% on 4 lit ers nasal cannula. GENERAL: The patient is awake. She is somnolent. She wakes up easily with some minimal stimulation , but drifts back to sleep if do not stimulate her for more than 10 seconds. HEENT: Normocephalic, atraumatic. Sclerae are white, conjunctivae pink. Oral and nasal mucosa is m oist without lesions. LUNGS: Decent air entry. Rhonchi are present. There is slightly prolonged expiratory phase. I do not appreciate any wheezing or crackles. HEART: Normal rate, regular. ABDOMEN: Soft, nontender, nondistended, bowel sounds positive. MUSCULOSKELETAL: No cyanosis or clubbing. There is trace pitting in the bilateral lower extremities . NEUROLOGIC: Grossly nonfocal. LABORATORY DATA: WBC 23.7, hemoglobin 11.8. Platelets 185,000 and improving. Neutrophil count is 9 1%. INR 1.4. Creatinine 2.02, which is improving. Sodium 146 and stable, chloride 112. BUN is 88 and stable. Basic metabolic profile is otherwise unremarkable. ASSESSMENT: 1. Acute hypoxic respiratory failure. 2. Community-acquired pneumonia. 3. Severe sepsis with recrudescence of symptoms. 4. Cerebrovascular accident with multiple areas of hemorrhagic conversion. 5. Chronic obstructive pulmonary disease with acute exacerbation. 6. Type 2 diabetes mellitus. 7. Opiate abuse with previous withdrawal features. PLAN: The patient will remain in the IMCU. We will continue to aggressively mobilize her as tolerat ed. Physiotherapy will be continued. She remains a DNI/DNR. That being said, outside of transition ing over to comfort care only, we are going to work towards being as aggressive as possible. As such , supportive care including antibiotics and nebulized medications will be continued.
--- NOTE | 2017-02-04 18:42 | PRG ---
DATE OF SERVICE: 02/04/2017 SUBJECTIVE: The patient seems to be doing much better, noted with the following vital signs. OBJECTIVE: VITAL SIGNS: Temperature maximum 100.3, pulse 96, respiratory rate of 18, blood pressure 128/72. HEENT: Unremarkable with moist oral mucosa. Neck is supple. No conjunctival injection or icterus. CARDIOVASCULAR: First and second heart sounds were heard. RESPIRATORY: Clear to auscultation. DIGESTIVE: Revealed a benign abdomen with positive bowel sounds. EXTREMITIES: No peripheral edema. SKIN: No new gross rash. LYMPHATICS: No peripheral lymphadenopathy. LABORATORY: The creatinine has gone down to 0.05. IMPRESSION: 1. Acute on chronic kidney disease which continues to maintain sustained renal recovery. 2. We will continue to avoid potentially nephrotoxic agents.
[2017-02-04] MEDS: Mirtazapine 30 MG TAB PO SCH (20:34)
[2017-02-05] MEDS: HYDROcodone/Acetaminophen 10/325 mg Tablet PO SCH ×3 (00:16→16:51)
[2017-02-05] MEDS: Insulin Regular 300 UNITS/3 ML VIAL SC PRN ×2 (00:17→06:12)
[2017-02-05] MEDS: MEROPENEM 1 GM/50 ML 1 GM in Premix Bag 1 BAG IVPB SCH ×4 (00:17→23:00)
[2017-02-05 05:37] LABS: Anion Gap 13 mmol/L (10-20); BUN (Urea Nitrogen) 85 mg/dL (9.8-20.1); Calc. Creatinine Clearance 31 mL/min (70-130); Calcium 8.1 mg/dL (7.8-10.44); Carbon Dioxide 26 mmol/L (22-29); Chloride 108 mmol/L (98-107); Estimated GFR-MDRD 28
[2017-02-05 05:58] LABS: Band 2 % (5-11); Hematocrit 38.6 % (36.0-47.0); Mean Platelet Volume 8.2 fL (7.4-10.4); Neutrophil 82 % (42-75); Red Blood Cell (RBC) Count 3.77 mill/uL (4.20-5.40); White Blood Cell (WBC) Count 24.1 thou/uL (4.8-10.8)
[2017-02-05] MEDS: Dextrose 5% in Water 500 ML IV SCH ×4 (05:58→18:19)
--- NOTE | 2017-02-05 09:59 | PDOC.PN ---
- Subjective Encounter Start Date: 02/05/17 Encounter Start Time: 09:56 Subjective: alert, has dobhoff - Objective Resuscitation Status: Resuscitation Status DNR:Do Not Resuscitate MAR Reviewed: Yes Vital Signs & Weight: Vital Signs (12 hours) Temp Pulse Resp BP Pulse Ox 02/05/17 07:32 97 02/05/17 07:19 93 20 97 02/05/17 07:00 97.8 F 93 20 125/76 98 02/05/17 06:30 93 20 97 02/05/17 04:25 99.1 F 95 20 127/66 93 L 02/05/17 00:13 92 16 96 02/05/17 00:00 98.9 F 87 16 127/70 96 02/04/17 22:12 89 20 121/64 98 Weight Admit Weight 135 lb 12.876 oz Weight 134 lb 8 oz Most Recent Monitor Data Heart Rate from ECG 98 NIBP 119/70 NIBP BP-Mean 95 Respiration from ECG 25 SpO2 97 I&O: 02/04/17 02/05/17 02/06/17 06:59 06:59 06:59 Intake Total 3365 3835 Output Total 2350 2050 Balance 1015 1785 Result Diagrams: 02/05/17 04:20 02/05/17 04:20 Additional Labs: Accuchecks 02/05/17 02/04/17 02/04/17 06:12 23:41 17:35 POC Glucose 174 H 170 H 220 H 02/04/17 12:56 POC Glucose 206 H Phys Exam - Physical Examination Constitutional: NAD Neck: no JVD scattered rhoonchi in all bernardo Cardiovascular: RRR, no significant murmur Gastrointestinal: soft, non-tender, positive bowel sounds Musculoskeletal: no edema flaccid L hemiplegia Dx/Plan (1) Hemiplegia affecting left nondominant side Code(s): G81.94 - HEMIPLEGIA, UNSPECIFIED AFFECTING LEFT NONDOMINANT SIDE Status: Acute Qualifiers: Hemiplegia type: flaccid Hemiplegia etiology: cerebrovascular Cerebrovascular disease type: cerebral infarction Qualified Code(s): I63.9 - Cerebral infarction, unspecified; G81.04 - Flaccid hemiplegia affecting left nondominant side; G81.04 - Flaccid hemiplegia affecting left nondominant side; G81.04 - Flaccid hemiplegia affecting left nondominant side (2) Acute respiratory failure Code(s): J96.00 - ACUTE RESPIRATORY FAILURE, UNSP W HYPOXIA OR HYPERCAPNIA Status: Acute Qualifiers: Respiratory failure complication: hypoxia Qualified Code(s): J96.01 - Acute respiratory failure with hypoxia (3) Acute right MCA stroke Code(s): I63.511 - CEREB INFRC D/T UNSP OCCLS OR STENOS OF RIGHT MID CEREB ART Status: Acute (4) Diabetes mellitus type 2 in nonobese Code(s): E11.9 - TYPE 2 DIABETES MELLITUS WITHOUT COMPLICATIONS Status: Chronic (5) Hypertension Code(s): I10 - ESSENTIAL (PRIMARY) HYPERTENSION Status: Acute Qualifiers: Hypertension type: essential hypertension Qualified Code(s): I10 - Essential (primary) hypertension (6) Pneumonia Code(s): J18.9 - PNEUMONIA, UNSPECIFIED ORGANISM Status: Acute Qualifiers: Pneumonia type: due to unspecified organism Laterality: bilateral Lung location: unspecified part of lung Qualified Code(s): J18.9 - Pneumonia, unspecified organism (7) Septic shock Code(s): A41.9 - SEPSIS, UNSPECIFIED ORGANISM; R65.21 - SEVERE SEPSIS WITH SEPTIC SHOCK Status: Acute (8) COPD exacerbation Code(s): J44.1 - CHRONIC OBSTRUCTIVE PULMONARY DISEASE W (ACUTE) EXACERBATION Status: Acute - Plan only pos blood C&S coag neg staph- discuss antibx tx with steel inspector -: cont nebs, steroids, O2 -: PEG discussed with daughter, will call GI * .
[2017-02-05] MEDS: Metoprolol Tartrate 25 MG TAB PO SCH ×2 (10:13→19:55)
[2017-02-05] MEDS: Furosemide 40 MG/4 ML VIAL SLOW IVP SCH (10:14)
[2017-02-05 15:25] LABS: Vancomycin, Trough 18.3 ug/mL
[2017-02-05] MEDS: Vancomycin HCl 750 MG in Sodium Chloride 0.9% 250 ML 250 ML IVPB SCH (16:33)
[2017-02-05] MEDS: Micafungin 100 MG in Sodium Chloride 0.9% 100 ML IVPB SCH (17:51)
[2017-02-05] MEDS: Morphine 10 MG/ML CARPUJECT SLOW IVP PRN (19:49)
[2017-02-05] MEDS: Mirtazapine 30 MG TAB PO SCH (19:55)
--- NOTE | 2017-02-05 20:17 | PRG ---
DATE OF SERVICE: 02/05/2017 SERVICE: Pulmonary Medicine. INTERVAL HISTORY: The patient is doing fairly well from a respiratory standpoint. This morning, I f ind her awake and alert. She is more responsive than she has previously been. There has been no int erval change to her condition; however. From a neurologic standpoint, things are roughly stable. PHYSICAL EXAMINATION: VITAL SIGNS: Afebrile, pulse 95, blood pressure 130/78, respirations 18, saturation 95% on 4 liters nasal cannula. GENERAL: The patient is awake and alert. She is in no apparent distress. LUNGS: Decent air entry with no prolonged expiratory phase or wheezing. Rhonchi are present. HEART: Normal rate, regular. ABDOMEN: Soft, nontender, nondistended. Bowel sounds positive. MUSCULOSKELETAL: No cyanosis or clubbing. There is no pitting in the bilateral lower extremities. LABORATORY DATA: WBC 24.1, hemoglobin 12.2, platelets 190,000. Neutrophil count is 82% and 2% of ba nds. Sodium has improved to 143, chloride is 108 and significantly improved. Creatinine 1.83 and BU N is stable at 85. Basic metabolic profile is otherwise unremarkable. Urine culture is growing yeas t species. C. diff antigen and toxin are negative. Blood culture x3 is unremarkable and one is grow ing coag negative staph. ASSESSMENT: 1. Acute hypoxic respiratory failure. 2. Community-acquired pneumonia, status post full course of antibiotics. 3. Severe sepsis with recrudescence of symptoms, defervescing once again. 4. Cerebrovascular accident with multiple areas of hemorrhagic conversion. 5. Chronic obstructive pulmonary disease with acute exacerbation, resolved. 6. Type 2 diabetes mellitus. 7. Acute kidney injury, improving. PLAN: Our source of infection is unknown. It could represent coag negative Staph associated with in dwelling catheters versus the urinary tract infection which is less likely. Her temperature profile has once again improved making the suspect that it was likely the vancomycin treating her coag negati ve Staph, which is helping her. We will continue to monitor for the time being. We will consider tr eating with antifungal medication at some point in the future. She will need to go down for a PEG tu be, which is being set up by the primary service. The family would like for us to be as aggressive a s possible moving forward to see if the patient can recover some more function and returned to have g ood quality of life based on how the patient is going to define it. I will back off on the free wate r at 50 mL per hour, but they do need to be continued for the next 24 hours.
--- NOTE | 2017-02-05 23:36 | PRG ---
DATE OF SERVICE: 02/05/2017 SUBJECTIVE: The patient was seen and examined. No new complaints. Noted with the following. OBJECTIVE: VITAL SIGNS: Afebrile, temperature 99.2, pulse 104, respiratory rate of 18, O2 sat 96% and blood pre ssure 122/77. HEENT: Unremarkable. CARDIOVASCULAR SYSTEM: First and second heart sounds were heard. RESPIRATORY SYSTEM: Revealed a lot of transmitted sounds. DIGESTIVE SYSTEM: Revealed a benign abdomen. EXTREMITIES: No peripheral edema. LABORATORY INVESTIGATIONS: Showed a creatinine of 1.83 and BUN of 85. IMPRESSION AND PLAN: 1. Acute on chronic kidney disease, which seems to have resolved back to baseline. 2. Further management to be dependent on a clinical course.
[2017-02-06] MEDS: HYDROcodone/Acetaminophen 10/325 mg Tablet PO SCH ×2 (02:23→09:15)
[2017-02-06] MEDS: Dextrose 5% in Water 500 ML IV SCH ×2 (05:13→22:08)
--- NOTE | 2017-02-06 06:13 | CON ---
DATE OF CONSULTATION: 02/05/2017 REASON FOR CONSULTATION: Request for PEG tube placement. HISTORY OF PRESENT ILLNESS: Ms. Everett is a 61-year-old female who was admitted to the hospital on with respiratory failure, right middle lobe infiltrate. There are no signs of pulmonary emb olus on initial admission, she ultimately has a systemic inflammatory response syndrome and had devel oped shock liver. She had a brain MRI on 01/31/2017 that showed hemorrhagic transformation of the ri ght parieto-occipital infarction and some small acute or subacute infarction in the right frontal lob e were found as well hemorrhagic transformation. She has gradually been weaned off the ventilator an d off of BiPAP, and is unable to swallow on her own. She has been evaluated by speech pathology, fel t to have about 99% impairment of swallowing at this time, was not felt to be safe with p.o. intake. Hospital service is requested for PEG tube placement. Patient's family is in agreement with this an d wish to proceed to help get on with her rehabilitation. Presently, she has her Dobhoff feeding tub e and it has come out several times. PAST MEDICAL HISTORY: CVA, COPD, chronic back pain, coronary artery disease. PAST SURGICAL HISTORY: Includes back surgery, neck surgery, cardiac stenting. SOCIAL HISTORY: Does not smoke. Denies alcohol use. Previous [id number] history of smoking. FAMILY HISTORY: Negative for GI or liver disease. PRESENT MEDICATIONS: Albuterol, DuoNeb, Lasix 40 mg IV daily, D5 normal at 75 an hour, meropenem, At abrahma, labetalol, daily, micafungin, morphine, Zofran, and vancomycin. Review of microbiology notable for negative C. diff toxin 01/31/2017. Blood culture coagulase negati ve. Staph on 01/31/2017 urine with yeast on 01/31/2017. PHYSICAL EXAMINATION: VITAL SIGNS: Pulse was 70, temperature 98, blood pressure 130/78. She has Dobbhoff tube in place, t olerating feeds. Presently satting 90% on room air. LUNGS: Clear slight wheezing. ABDOMEN: Soft, nontender. There is no hepatosplenomegaly. There is no shifting dullness or fluid w ave. Review of previous CAT scan showed no ascites. LABORATORY DATA: White count 24,000, hemoglobin 12, platelet count 190. INR 31.4, BUN and creatinin e are 85 and 1.83. IMPRESSION: 1. Status post stroke. 2. Status post acute pulmonary failure, improving. 3. Oropharyngeal dysphagia. PLAN: PEG tube will be warranted. It will depend on her respiratory status, we can proceed with delroy t she still tenuous from that standpoint, would wait another day or two and would continue her on tub e feeds at this time. ADDENDUM: I have discussed the patient's respiratory status with her flex o writer operator, Dr. Escobar. He felt that her pulmonary status is about the best it is going to be and that she would tolerate general sedation for PEG tube placement. He has been following her since her admission and is well versed in her pul monary status. I will plan for PEG tube placement tomorrow.
[2017-02-06 06:22] LABS: Anion Gap 13 mmol/L (10-20); BUN (Urea Nitrogen) 80 mg/dL (9.8-20.1); Calc. Creatinine Clearance 35 mL/min (70-130); Calcium 8.1 mg/dL (7.8-10.44); Carbon Dioxide 28 mmol/L (22-29); Chloride 107 mmol/L (98-107); Estimated GFR-MDRD 33
[2017-02-06 06:25] LABS: Hematocrit 36.6 % (36.0-47.0); Mean Platelet Volume 8.3 fL (7.4-10.4); Red Blood Cell (RBC) Count 3.64 mill/uL (4.20-5.40)
[2017-02-06 06:42] LABS: Band 2 % (5-11); Neutrophil 85 % (42-75)
[2017-02-06] MEDS ORDERED: Midazolam HCl 2 mg/2 ml Vial ONE (07:21)
[2017-02-06] MEDS ORDERED: Benzocaine 20% Spray 60 ML CAN ONE (07:34)
[2017-02-06] MEDS: MEROPENEM 1 GM/50 ML 1 GM in Premix Bag 1 BAG IVPB SCH ×3 (09:11→23:41)
[2017-02-06] MEDS: Metoprolol Tartrate 25 MG TAB PO SCH ×2 (09:22→22:14)
[2017-02-06] MEDS: Furosemide 40 MG/4 ML VIAL SLOW IVP SCH (09:22)
[2017-02-06] MEDS: Pantoprazole 40 MG GRANULES PACKET PER TUBE SCH ×2 (09:23→22:17)
[2017-02-06] MEDS: HYDROcodone/Acetaminophen 5/325 mg Tablet PO SCH ×2 (10:00→16:08)
--- NOTE | 2017-02-06 11:03 | OP ---
DATE OF PROCEDURE: 02/06/2017 PROCEDURE PERFORMED: Esophagogastroduodenoscopy with percutaneous gastrostomy tube placement. DESCRIPTION OF PROCEDURE: After conferring with the patient and the patient's surrogate, the risks and benefits of the procedure were outlined with risks including infection, bleeding, reaction to anesthesia, perforation and pain. After all these were discussed, the patient and the patient's surrogate signed consent. After which, the patient was taken to the endoscopy suite and via anesthesia support, anesthesia was induced. The endoscope was then advanced through the mouth into the esophagus, stomach and first and second portion of the duodenum with adequate visualization of each portion upon withdrawal. FINDINGS: Duodenum: Normal appearing mucosa was seen in both the duodenal bulb and second portion of the duodenum with no discernible erosions, ulcerations or mass lesions. Stomach: A 3 mm clean-based, nonbleeding ulcer with no visible stigmata of bleeding was seen in the gastric antrum along the lesser curvature in the distal portion of the stomach. Given the clean-based nature of the ulceration, no intervention was taken. Otherwise, normal appearing mucosa was seen in the cardia, fundus, body and incisura with no discernible erosions, no other erosions, ulcerations or mass lesions. Esophagus: Normal appearing mucosa was seen in the proximal, mid and distal esophagus. There was no evidence of esophagitis at the GE junction, with the GE junction measuring approximately 40 cm past the incisors. PEG placement: After inspection was made throughout the entire upper GI tract, using proper technique, both transillumination and 1:1 compression were performed with adequate results for both of these maneuvers. After these maneuvers were completed, using an high gauge needle, 2% lidocaine was instilled in a weal formation underneath the skin and then advanced perpendicular to the skin into the stomach with back pressure during advancement. Lidocaine was then injected along this particular tract to achieve adequate local anesthesia prior to incision. After adequate anesthesia was obtained from a local standpoint, a 1 cm vertical incision was made in the skin and using an aspiration needle was then advanced into the body of the stomach. A guidewire was then advanced through the aspiration needle, retrieved via snare by the gastroscope, and taken out back through the mouth. The wire was then affixed to the PEG tube itself and using gentle traction using a push technique, the PEG tube was pulled back through the mouth into the stomach and through the anterior stomach wall and through the skin. After fixing the external bumper, the PEG tube was then cut to length and the adapter was positioned. Repeat intubation of the esophagus and stomach was performed showing adequate placement of the PEG tube and was visualized with easily movement by a 360-degree motion by the PEG tube itself. IMPRESSION: 1. Successful placement of a 20-[employer] PEG tube. 2. A 3 mm clean-based nonbleeding gastric ulcer in the antrum. No intervention taken at this time. RECOMMENDATIONS: 1. Follow up with primary inpatient team with transfer patient back to MICU. 2. Can start the patient on medications immediately through the PEG tube, would wait approximately 4 hours prior to starting any tube feeds per dietitian recommendations/protocol. 3. Would start patient on pantoprazole 40 mg twice daily given evidence of gastric ulcer along the lesser curvature in the antrum. Will need repeat EGD in 8-12 weeks for re-evaluation of this ulceration to document healing 4. Would obtain serum H. pylori antibody and if positive, treat with triple therapy (amoxicillin 1g bid, clarithromycin 500mg bid, and PPI 40mg bid x 14 days) 5. Proceed with general PEG tube care (cleansing of the wound with running soap and water, rotating the tube itself approximately 720 degrees daily, avoid placing any dressings beneath the external bumper and the skin, avoid swimming or bathing for approximately 6 weeks after PEG tube placement). 6. If the PEG tube is pulled out prior to stoma maturation (approximately 4-6 weeks), would consult General Surgery as this is a potential surgical emergency. We will continue to follow. Please call with any questions. MTDD
[2017-02-06] MEDS ORDERED: HYDROcodone/Acetaminophen 5/325 mg Tablet PO SCH (14:00)
[2017-02-06] MEDS: Vancomycin HCl 750 MG in Sodium Chloride 0.9% 250 ML 250 ML IVPB SCH (15:53)
[2017-02-06] MEDS: Micafungin 100 MG in Sodium Chloride 0.9% 100 ML IVPB SCH (15:54)
[2017-02-06] MEDS: Morphine 10 MG/ML CARPUJECT SLOW IVP PRN (16:07)
[2017-02-06] MEDS ORDERED: Lidocaine 1% PF 5 ML VIAL ONE (16:37)
[2017-02-06] MEDS ORDERED: Propofol 200 MG/20 ML VIAL ONE (16:37)
--- NOTE | 2017-02-06 16:44 | PDOC.PN ---
- Subjective Encounter Start Date: 02/06/17 Encounter Start Time: 16:43 Subjective: post PEG, no distress - Objective Resuscitation Status: Resuscitation Status DNR:Do Not Resuscitate MAR Reviewed: Yes Vital Signs & Weight: Vital Signs (12 hours) Temp Pulse Resp BP Pulse Ox 02/06/17 16:33 98.3 F 100 16 128/82 94 L 02/06/17 14:26 99 02/06/17 14:25 89 21 H 99 02/06/17 12:00 98.0 F 98 16 134/85 97 02/06/17 08:00 97.9 F 90 17 131/76 96 02/06/17 07:48 97.9 F 90 17 95 Weight Admit Weight 135 lb 12.876 oz Weight 129 lb 8 oz Most Recent Monitor Data Heart Rate from ECG 98 NIBP 119/70 NIBP BP-Mean 95 Respiration from ECG 25 SpO2 97 I&O: 02/05/17 02/06/17 02/07/17 06:59 06:59 06:59 Intake Total 3835 2227 120 Output Total 0 2520 Balance 1785 -293 120 Result Diagrams: 02/06/17 05:10 02/06/17 05:10 Additional Labs: Accuchecks 02/06/17 02/06/17 02/05/17 11:56 05:43 23:49 POC Glucose 197 H 147 H 180 H 02/05/17 19:03 POC Glucose 230 H Phys Exam - Physical Examination Constitutional: NAD Neck: no JVD Respiratory: clear to auscultation bilateral Cardiovascular: RRR, no significant murmur Gastrointestinal: soft Musculoskeletal: edema present Dx/Plan (1) Hemiplegia affecting left nondominant side Code(s): G81.94 - HEMIPLEGIA, UNSPECIFIED AFFECTING LEFT NONDOMINANT SIDE Status: Acute Qualifiers: Hemiplegia type: flaccid Hemiplegia etiology: cerebrovascular Cerebrovascular disease type: cerebral infarction Qualified Code(s): I63.9 - Cerebral infarction, unspecified; G81.04 - Flaccid hemiplegia affecting left nondominant side; G81.04 - Flaccid hemiplegia affecting left nondominant side; G81.04 - Flaccid hemiplegia affecting left nondominant side (2) Acute respiratory failure Code(s): J96.00 - ACUTE RESPIRATORY FAILURE, UNSP W HYPOXIA OR HYPERCAPNIA Status: Acute Qualifiers: Respiratory failure complication: hypoxia Qualified Code(s): J96.01 - Acute respiratory failure with hypoxia (3) Acute right MCA stroke Code(s): I63.511 - CEREB INFRC D/T UNSP OCCLS OR STENOS OF RIGHT MID CEREB ART Status: Acute (4) Diabetes mellitus type 2 in nonobese Code(s): E11.9 - TYPE 2 DIABETES MELLITUS WITHOUT COMPLICATIONS Status: Chronic (5) Hypertension Code(s): I10 - ESSENTIAL (PRIMARY) HYPERTENSION Status: Acute Qualifiers: Hypertension type: essential hypertension Qualified Code(s): I10 - Essential (primary) hypertension (6) Pneumonia Code(s): J18.9 - PNEUMONIA, UNSPECIFIED ORGANISM Status: Acute Qualifiers: Pneumonia type: due to unspecified organism Laterality: bilateral Lung location: unspecified part of lung Qualified Code(s): J18.9 - Pneumonia, unspecified organism (7) Septic shock Code(s): A41.9 - SEPSIS, UNSPECIFIED ORGANISM; R65.21 - SEVERE SEPSIS WITH SEPTIC SHOCK Status: Acute (8) COPD exacerbation Code(s): J44.1 - CHRONIC OBSTRUCTIVE PULMONARY DISEASE W (ACUTE) EXACERBATION Status: Acute - Plan tube feedings, meds per PEG -: cont vanc, will discuss with pulmonology * .
--- NOTE | 2017-02-06 17:44 | PRG ---
DATE OF SERVICE: 02/06/2017 SERVICE: Pulmonary Medicine. INTERVAL HISTORY: The patient just got a PEG tube. Her belly is appropriately a little tender. She denies any current fevers, chills, nausea, vomiting. She had no overnight events. She is breathing a little comfortably this morning which is nice to see. PHYSICAL EXAMINATION: VITAL SIGNS: Afebrile, pulse 89, blood pressure 134/85, respirations 16, saturation 97% on 4 liters nasal cannula. GENERAL: Patient is awake and alert. She has episodes of somnolence. HEENT: Normocephalic, atraumatic. Sclerae are white, conjunctivae pink. Oral and nasal mucosa is m oist without lesions. LUNGS: Decent air entry. There is no prolonged expiratory phase or wheezing. HEART: Normal rate, regular. ABDOMEN: Soft, nontender, nondistended. Bowel sounds are positive. MUSCULOSKELETAL: No cyanosis or clubbing. There is no pitting in the bilateral lower extremities. LABORATORY DATA: WBC is gently down trending to 20. Neutrophil count and BUN count are roughly stab le. Creatinine 1.60, which continues to trend in a favorable direction. Basic metabolic profile is otherwise unremarkable. Potassium 3.6. ASSESSMENT: 1. Acute hypoxic respiratory failure, improving. 2. Community-acquired pneumonia, status post full course of antibiotics. 3. Severe sepsis with recrudescence of symptoms, once again defervescing. 4. Cerebrovascular accident with multiple areas of hemorrhagic conversion. 5. Chronic obstructive pulmonary disease with acute exacerbation, resolved. 6. Acute kidney injury, improving. 7. Type 2 diabetes mellitus. 8. Status post PEG tube placement. PLAN: We will continue our empiric antibiotics for the time being. White blood cell count is starti ng to improve. If the trend continues, I will consider discontinuing the meropenem. All lines and t ubes will be removed starting tomorrow morning if she makes a favorable turn. We will continue free water for the next 24 hours.
--- NOTE | 2017-02-06 21:58 | PRG ---
DATE OF SERVICE: 02/06/2017 SUBJECTIVE: The patient was seen and examined today and noted with the following vital signs. OBJECTIVE: VITAL SIGNS: , respiratory rate . LABORATORY DATA: Lab work showed a white count of . PLAN: Continue current management .
[2017-02-06] MEDS: Mirtazapine 30 MG TAB PO SCH (22:14)
[2017-02-07] MEDS: HYDROcodone/Acetaminophen 5/325 mg Tablet PO SCH ×3 (00:55→19:21)
[2017-02-07 05:08] LABS: #Eosinphils 0.1 thou/uL (0.0-0.7); #Lymphocytes 1.6 thou/uL (1.20-3.40); #Monocytes 1.2 thou/uL (0.11-0.59); #Neutrophils 15.2 thou/uL (1.40-6.50); %Basophils 0.1 % (0.0-1.0); %Eosinophils 0.4 % (0.0-10.0); %Lymphocytes 8.6 % (21.0-51.0); %Monocytes 6.8 % (0.0-10.0); Hematocrit 36.8 % (36.0-47.0); Mean Platelet Volume 8.5 fL (7.4-10.4); Red Blood Cell (RBC) Count 3.64 mill/uL (4.20-5.40)
[2017-02-07 05:29] LABS: Anion Gap 13 mmol/L (10-20); BUN (Urea Nitrogen) 77 mg/dL (9.8-20.1); Calc. Creatinine Clearance 38 mL/min (70-130); Calcium 8.3 mg/dL (7.8-10.44); Carbon Dioxide 26 mmol/L (22-29); Chloride 106 mmol/L (98-107); Estimated GFR-MDRD 35
[2017-02-07] MEDS: Furosemide 40 MG/4 ML VIAL SLOW IVP SCH (09:54)
[2017-02-07] MEDS: Pantoprazole 40 MG GRANULES PACKET PER TUBE SCH ×2 (09:54→21:26)
[2017-02-07] MEDS: MEROPENEM 1 GM/50 ML 1 GM in Premix Bag 1 BAG IVPB SCH ×2 (09:54→16:27)
[2017-02-07] MEDS: Metoprolol Tartrate 25 MG TAB PO SCH ×2 (09:55→21:26)
[2017-02-07] MEDS: Dextrose 5% in Water 500 ML IV SCH ×2 (09:56→21:28)
[2017-02-07] MEDS ORDERED: Morphine 10 MG/ML CARPUJECT IV PRN (10:04)
--- NOTE | 2017-02-07 10:20 | PRG ---
DATE OF SERVICE: 02/07/2017 SERVICE: Pulmonary Medicine. INTERVAL HISTORY: The patient is doing really quite well from a respiratory standpoint. Her mentati on is actually dramatically improved and she is moving her upper extremities today. This is the firs t time this has happened without significant stimulation quite sometime. Otherwise, there has been n o interval change to her condition. PHYSICAL EXAMINATION: VITAL SIGNS: Afebrile, pulse 93, blood pressure 133/78, respirations 20, saturation 98% on 3 liters nasal cannula. GENERAL: The patient is awake, alert, no apparent distress. LUNGS: Decent air entry. Rhonchi are present, but now clear with cough. HEART: Normal rate, regular. ABDOMEN: Soft, nontender, nondistended. Bowel sounds positive. MUSCULOSKELETAL: No cyanosis or clubbing. No pitting in the bilateral lower extremities. LABORATORY DATA: WBC 18.0, hemoglobin 12.1, platelets 226,000. INR 1.4. Creatinine 1.53 and contin uing to downtrend. BUN 77. Sodium 141 and improving. Basic metabolic profile is otherwise unremark able. ASSESSMENT: 1. Acute hypoxic respiratory failure, improving. 2. Community-acquired pneumonia, status post full course of antibiotics. 3. Severe sepsis, improving. 4. Cerebrovascular accident with multiple areas of hemorrhagic conversion. 5. Chronic obstructive pulmonary disease with acute exacerbation, resolved. 6. Acute kidney injury, improving. 7. Status post PEG tube placement. 8. Type 2 diabetes mellitus. PLAN: We will back off on her steroids to touch. Lyn catheter will be removed today. We will con tinue making efforts on mobilizing the patient. A small dose of potassium will be provided today. A t this point, I do believe the patient is stable for transition out of the [facility] to the stroke unit wh ere we can continue our efforts on mobilizing the patient and getting her to a rehabilitation facilit y.
[2017-02-07 14:47] VITALS: BMI 20.6
--- NOTE | 2017-02-07 15:04 | PDOC.PN ---
- Subjective Encounter Start Date: 02/07/17 Encounter Start Time: 15:02 Subjective: more alert, verbalizing - Objective Resuscitation Status: Resuscitation Status DNR:Do Not Resuscitate MAR Reviewed: Yes Vital Signs & Weight: Vital Signs (12 hours) Temp Pulse Resp BP Pulse Ox 02/07/17 13:48 101 H 20 99 02/07/17 11:19 98.3 F 97 20 148/81 H 106 H 02/07/17 08:52 98 02/07/17 08:49 98 24 H 98 02/07/17 07:50 98.4 F 93 20 94 L 02/07/17 07:15 98.4 F 93 20 133/78 101 H 02/07/17 04:53 98.7 F 97 18 145/71 H 94 L 02/07/17 04:33 97 Weight Admit Weight 135 lb 12.876 oz Weight 136 lb 3.2 oz Most Recent Monitor Data Heart Rate from ECG 98 NIBP 119/70 NIBP BP-Mean 95 Respiration from ECG 25 SpO2 97 I&O: 02/06/17 02/07/17 02/08/17 06:59 06:59 06:59 Intake Total 2227 2560 60 Output Total 2520 2300 Balance -293 260 60 Result Diagrams: 02/07/17 04:09 02/07/17 04:09 Additional Labs: Accuchecks 02/07/17 02/07/17 02/07/17 12:03 05:46 00:52 POC Glucose 225 H 160 H 151 H 02/06/17 02/06/17 21:56 17:53 POC Glucose 176 H 236 H Phys Exam - Physical Examination Constitutional: NAD Neck: no JVD Respiratory: clear to auscultation bilateral Cardiovascular: RRR, no significant murmur Gastrointestinal: soft, non-tender, positive bowel sounds PEG Musculoskeletal: edema present Dx/Plan (1) Hemiplegia affecting left nondominant side Code(s): G81.94 - HEMIPLEGIA, UNSPECIFIED AFFECTING LEFT NONDOMINANT SIDE Status: Acute Qualifiers: Hemiplegia type: flaccid Hemiplegia etiology: cerebrovascular Cerebrovascular disease type: cerebral infarction Qualified Code(s): I63.9 - Cerebral infarction, unspecified; G81.04 - Flaccid hemiplegia affecting left nondominant side; G81.04 - Flaccid hemiplegia affecting left nondominant side; G81.04 - Flaccid hemiplegia affecting left nondominant side (2) Acute respiratory failure Code(s): J96.00 - ACUTE RESPIRATORY FAILURE, UNSP W HYPOXIA OR HYPERCAPNIA Status: Acute Qualifiers: Respiratory failure complication: hypoxia Qualified Code(s): J96.01 - Acute respiratory failure with hypoxia (3) Acute right MCA stroke Code(s): I63.511 - CEREB INFRC D/T UNSP OCCLS OR STENOS OF RIGHT MID CEREB ART Status: Acute (4) Diabetes mellitus type 2 in nonobese Code(s): E11.9 - TYPE 2 DIABETES MELLITUS WITHOUT COMPLICATIONS Status: Chronic (5) Hypertension Code(s): I10 - ESSENTIAL (PRIMARY) HYPERTENSION Status: Acute Qualifiers: Hypertension type: essential hypertension Qualified Code(s): I10 - Essential (primary) hypertension (6) Pneumonia Code(s): J18.9 - PNEUMONIA, UNSPECIFIED ORGANISM Status: Acute Qualifiers: Pneumonia type: due to unspecified organism Laterality: bilateral Lung location: unspecified part of lung Qualified Code(s): J18.9 - Pneumonia, unspecified organism (7) Septic shock Code(s): A41.9 - SEPSIS, UNSPECIFIED ORGANISM; R65.21 - SEVERE SEPSIS WITH SEPTIC SHOCK Status: Acute (8) COPD exacerbation Code(s): J44.1 - CHRONIC OBSTRUCTIVE PULMONARY DISEASE W (ACUTE) EXACERBATION Status: Acute - Plan cont tube feeding and meds -: PT/OT -: now moving L side some, improved fcn in affected side * .
[2017-02-07 15:30] LABS: Vancomycin, Trough 18.9 ug/mL
--- NOTE | 2017-02-07 16:12 | PRG ---
DATE OF SERVICE: 02/07/2017 SUBJECTIVE: Ms. Everett is doing well after PEG yesterday. She is tolerating 2 PEGs, has had a little bit of nausea and the nurse have decrease the rate. PHYSICAL EXAMINAITON: VITAL SIGNS: Temperature is 98, pulse 100, blood pressure 148/81. ABDOMEN: Soft, nontender. PEG tube site is clean and dry with no erythema or exudate. The bumper i s loosened and the dressing removed. ASSESSMENT: Status post PEG tube for stroke with oropharyngeal dysphagia, also with severe respirato ry failure, resolving. RECOMMENDATIONS: Continue physical therapy, if she does not in the PEG tube 46 weeks, we could consider removing the o utpatient setting. I have discussed with the family care of maintenance of the PEG tube, flushing it daily and cleaning skin with soap and water daily. At this time, we will follow and if I can be of any further assistance, please do not hesitate to contact Neurosurgery.
[2017-02-07] MEDS: Micafungin 100 MG in Sodium Chloride 0.9% 100 ML IVPB SCH (16:27)
[2017-02-07] MEDS: Vancomycin HCl 750 MG in Sodium Chloride 0.9% 250 ML 250 ML IVPB SCH (16:27)
[2017-02-07] MEDS: Mirtazapine 30 MG TAB PO SCH (21:26)
[2017-02-07] MEDS: Acetaminophen 325 MG TAB PO PRN (21:26)
--- NOTE | 2017-02-07 21:56 | PRG ---
DATE OF SERVICE: 02/07/2017 SUBJECTIVE: The patient was seen and examined with no new complaint and noted with the following vit al signs. OBJECTIVE: VITAL SIGNS: Temperature 98, pulse 102, blood pressure 142/81. HEENT: Unremarkable with moist oral mucosa. Neck was supple. No conjunctival injection or icterus. CARDIOVASCULAR SYSTEM: First and second heart sounds were heard. RESPIRATORY SYSTEM: Clear to auscultation. DIGESTIVE SYSTEM: Revealed a benign abdomen with positive bowel sounds. EXTREMITIES: No peripheral edema. IMPRESSION: PLAN:
[2017-02-08] MEDS: MEROPENEM 1 GM/50 ML 1 GM in Premix Bag 1 BAG IVPB SCH ×3 (00:51→16:34)
[2017-02-08] MEDS: HYDROcodone/Acetaminophen 5/325 mg Tablet PO SCH ×3 (01:22→16:33)
[2017-02-08 05:29] LABS: Anion Gap 10 mmol/L (10-20); BUN (Urea Nitrogen) 69 mg/dL (9.8-20.1); Calc. Creatinine Clearance 41 mL/min (70-130); Calcium 8.4 mg/dL (7.8-10.44); Carbon Dioxide 28 mmol/L (22-29); Chloride 107 mmol/L (98-107); Estimated GFR-MDRD 38
[2017-02-08 05:34] LABS: #Basophils 0.1 thou/uL (0.0-0.2); #Eosinphils 0.2 thou/uL (0.0-0.7); #Lymphocytes 1.8 thou/uL (1.20-3.40); #Monocytes 0.8 thou/uL (0.11-0.59); #Neutrophils 12.7 thou/uL (1.40-6.50); %Basophils 0.3 % (0.0-1.0); %Eosinophils 1.3 % (0.0-10.0); %Lymphocytes 11.5 % (21.0-51.0); %Monocytes 5.4 % (0.0-10.0); Hematocrit 35.5 % (36.0-47.0); Mean Platelet Volume 8.2 fL (7.4-10.4); Red Blood Cell (RBC) Count 3.53 mill/uL (4.20-5.40); White Blood Cell (WBC) Count 15.6 thou/uL (4.8-10.8)
--- NOTE | 2017-02-08 07:27 | PDOC.PN ---
- Subjective Encounter Start Date: 02/08/17 Encounter Start Time: 07:25 Subjective: nonverbal, no distress - Objective Resuscitation Status: Resuscitation Status DNR:Do Not Resuscitate MAR Reviewed: Yes Vital Signs & Weight: Vital Signs (12 hours) Temp Pulse Resp BP Pulse Ox 02/08/17 07:02 102 H 18 96 02/08/17 06:30 97 02/08/17 04:37 98.3 F 103 H 24 H 155/92 H 94 L 02/08/17 00:59 104 H 22 H 97 02/08/17 00:02 99.1 F 105 H 22 H 138/90 93 L 02/07/17 21:00 98.1 F 102 H 22 H 148/85 H 98 02/07/17 20:00 98.1 F 102 H 22 H 98 Weight Admit Weight 135 lb 12.876 oz Weight 135 lb 9.6 oz Most Recent Monitor Data Heart Rate from ECG 98 NIBP 119/70 NIBP BP-Mean 95 Respiration from ECG 25 SpO2 97 I&O: 02/07/17 02/08/17 02/09/17 06:59 06:59 06:59 Intake Total 2560 2760 Output Total 2300 3500 Balance 260 -740 Result Diagrams: 02/08/17 04:52 02/08/17 04:52 Additional Labs: Accuchecks 02/07/17 02/07/17 02/07/17 21:31 18:06 12:03 POC Glucose 137 H 156 H 225 H Phys Exam - Physical Examination Constitutional: NAD Neck: no JVD Respiratory: clear to auscultation bilateral Cardiovascular: RRR, no significant murmur Gastrointestinal: soft, non-tender, positive bowel sounds peg Musculoskeletal: no edema R hemipldgia, aphasia Dx/Plan (1) Hemiplegia affecting left nondominant side Code(s): G81.94 - HEMIPLEGIA, UNSPECIFIED AFFECTING LEFT NONDOMINANT SIDE Status: Acute Qualifiers: Hemiplegia type: flaccid Hemiplegia etiology: cerebrovascular Cerebrovascular disease type: cerebral infarction Qualified Code(s): I63.9 - Cerebral infarction, unspecified; G81.04 - Flaccid hemiplegia affecting left nondominant side; G81.04 - Flaccid hemiplegia affecting left nondominant side; G81.04 - Flaccid hemiplegia affecting left nondominant side (2) Acute respiratory failure Code(s): J96.00 - ACUTE RESPIRATORY FAILURE, UNSP W HYPOXIA OR HYPERCAPNIA Status: Acute Qualifiers: Respiratory failure complication: hypoxia Qualified Code(s): J96.01 - Acute respiratory failure with hypoxia (3) Acute right MCA stroke Code(s): I63.511 - CEREB INFRC D/T UNSP OCCLS OR STENOS OF RIGHT MID CEREB ART Status: Acute (4) Diabetes mellitus type 2 in nonobese Code(s): E11.9 - TYPE 2 DIABETES MELLITUS WITHOUT COMPLICATIONS Status: Chronic (5) Hypertension Code(s): I10 - ESSENTIAL (PRIMARY) HYPERTENSION Status: Acute Qualifiers: Hypertension type: essential hypertension Qualified Code(s): I10 - Essential (primary) hypertension (6) Pneumonia Code(s): J18.9 - PNEUMONIA, UNSPECIFIED ORGANISM Status: Acute Qualifiers: Pneumonia type: due to unspecified organism Laterality: bilateral Lung location: unspecified part of lung Qualified Code(s): J18.9 - Pneumonia, unspecified organism (7) Septic shock Code(s): A41.9 - SEPSIS, UNSPECIFIED ORGANISM; R65.21 - SEVERE SEPSIS WITH SEPTIC SHOCK Status: Acute (8) COPD exacerbation Code(s): J44.1 - CHRONIC OBSTRUCTIVE PULMONARY DISEASE W (ACUTE) EXACERBATION Status: Acute - Plan transition meds to po, discuss atibx with Dr Escobar -: alannah johnson -: start statin, not on asa due to hemorrhagic trnsformation * .
[2017-02-08] MEDS: Dextrose 5% in Water 500 ML IV SCH ×2 (09:10→21:44)
[2017-02-08] MEDS: Furosemide 40 MG TAB PER TUBE SCH (09:11)
[2017-02-08] MEDS: Metoprolol Tartrate 25 MG TAB PO SCH ×2 (09:13→21:44)
[2017-02-08] MEDS: Pantoprazole 40 MG GRANULES PACKET PER TUBE SCH ×2 (09:15→21:48)
[2017-02-08] MEDS: Vancomycin HCl 750 MG in Sodium Chloride 0.9% 250 ML 250 ML IVPB SCH (16:34)
[2017-02-08] MEDS: Micafungin 100 MG in Sodium Chloride 0.9% 100 ML IVPB SCH (18:12)
[2017-02-08] MEDS ORDERED: Atorvastatin Calcium 10 MG TAB PER TUBE SCH (21:00)
[2017-02-08] MEDS: Mirtazapine 30 MG TAB PO SCH (21:45)
[2017-02-09] MEDS: MEROPENEM 1 GM/50 ML 1 GM in Premix Bag 1 BAG IVPB SCH ×2 (00:43→09:58)
[2017-02-09] MEDS: HYDROcodone/Acetaminophen 5/325 mg Tablet PO SCH ×4 (00:44→16:31)
[2017-02-09 06:02] LABS: #Basophils 0.1 thou/uL (0.0-0.2); #Eosinphils 0.2 thou/uL (0.0-0.7); #Lymphocytes 1.4 thou/uL (1.20-3.40); #Monocytes 0.5 thou/uL (0.11-0.59); #Neutrophils 11.9 thou/uL (1.40-6.50); %Basophils 0.5 % (0.0-1.0); %Eosinophils 1.5 % (0.0-10.0); %Lymphocytes 10.1 % (21.0-51.0); %Monocytes 3.8 % (0.0-10.0); Hematocrit 32.5 % (36.0-47.0); Mean Platelet Volume 8.3 fL (7.4-10.4); Red Blood Cell (RBC) Count 3.27 mill/uL (4.20-5.40); White Blood Cell (WBC) Count 14.1 thou/uL (4.8-10.8)
[2017-02-09] MEDS: Dextrose 5% in Water 500 ML IV SCH (06:06)
[2017-02-09 06:18] LABS: Anion Gap 11 mmol/L (10-20); BUN (Urea Nitrogen) 57 mg/dL (9.8-20.1); Calc. Creatinine Clearance 47 mL/min (70-130); Calcium 8.3 mg/dL (7.8-10.44); Carbon Dioxide 29 mmol/L (22-29); Chloride 106 mmol/L (98-107); Estimated GFR-MDRD 41
[2017-02-09] MEDS: Furosemide 40 MG TAB PER TUBE SCH (06:39)
--- NOTE | 2017-02-09 06:42 | PRG ---
DATE OF SERVICE: 02/08/2017 SUBJECTIVE: The patient seen and examined and noted with the following vital signs. PHYSICAL EXAMINATION: VITAL SIGNS: Afebrile with temperature 98.4, pulse 103, respiratory rate 22, blood pressure 138/90, O2 sat 97%. HEENT: Unremarkable. CARDIOVASCULAR: First and second heart sounds heard. RESPIRATORY: Reveals some rales. DIGESTIVE SYSTEM: Revealed abdomen. SKIN: Revealed no new gross rash. LYMPHATICS: No peripheral lymphadenopathy. LABORATORY: Showed a creatinine down to 1.42, . IMPRESSION: 1. Acute on chronic kidney disease, is much improved. 2. Hypokalemia. 3. Cerebrovascular accident. PLAN: 1. Replete potassium. 2. Continue renal supportive measures. 3. Further management dependent on the clinical course.
[2017-02-09] MEDS: Metoprolol Tartrate 25 MG TAB PO SCH (10:44)
[2017-02-09] MEDS: Pantoprazole 40 MG GRANULES PACKET PER TUBE SCH (10:45)
--- NOTE | 2017-02-09 11:04 | RAD ---
AP CHEST: History: Follow up infiltrate. Date: 02-09-17 Comparison: 01-29-17 FINDINGS: AP chest demonstrates removal of the Dobbhoff tube. Previously noted airspace opacities in the perihi lar region are significantly reduced when compared to the previous exam from 02-01-17. No definite [place] of effusions seen. IMPRESSION: Decreased perihilar airspace opacities. POS: [facility]
--- NOTE | 2017-02-09 12:07 | PRG ---
DATE OF SERVICE: 02/09/2017 SUBJECTIVE: The patient is seen and examined at bedside. She is DO NOT RESUSCITATE code status. Mar betancourt is following my simple commands, but that is all I could get from her. She does not really respond to my questions properly. There were not any unexpected events overnight. OBJECTIVE: VITAL SIGNS: Blood pressure is 131/88, temperature is 99.8, pulse is 98, respiratory rate is 20, and pulse oximetry is 98%. She is on 3 liters by nasal cannula. GENERAL: As I mentioned above, she does not communicate with me, although she follows my simple comm ands. She is able to tell me her name and her age. EYES: Pupils are responding to light properly and size normal. Conjunctivae pinkish. Sclerae nonic teric. Oral mucosa is moist. NECK: Supple. LUNGS: Clear. HEART: S1, S2 normal. ABDOMEN: Soft, nontender, bowel sounds are present. No organomegaly. EXTREMITIES: No clubbing, cyanosis or edema. NEUROLOGIC: She follows my commands. She has left facial droop and left-sided flaccid hemiparesis w hich is more pronounced in the arm than in the leg. SKIN: No rash or erythema. LABORATORY DATA: Showed a white count of 14.1, hemoglobin of 10.9, hematocrit 32.5, platelet count i s 223,000. Potassium 2.8, sodium 143, chloride 106, CO2 29, BUN 59, creatinine 1.31. Glycemia rangi ng from 127-171. Calcium 8.3, magnesium 1.9. Microbiology shows yeast in urine and respiratory cult ures. Sputum shows few wbc's, many epithelial cells and no organisms seen. IMPRESSION: 1. Acute right middle cerebral artery cerebrovascular accident with left facial droop and left hemip aresis. 2. Diabetes mellitus type 2, controlled. 3. Hypertension, controlled. 4. Pneumonia, improved. 5. Septic shock. 6. Chronic obstructive pulmonary disease exacerbation, improved. PLAN: The patient finished her full course of antibiotics for community-acquired pneumonia and sever e sepsis, but she is not on any anticoagulation because her infarct underwent transformation to hemor rhagic phase. She will continue her PT, OT. I do not think she is a candidate for rehab, [facility] help her to recover some at least of her function.
--- NOTE | 2017-02-09 13:47 | PRG ---
DATE OF SERVICE: 02/09/2017 SERVICE: Pulmonary Medicine. INTERVAL HISTORY: The patient is doing fine from a respiratory standpoint. She is breathing quite c omfortably. She is awake and she follows some commands. She is attentive and will answer appropriat kahlil. That being said, she still remains fairly sleepy and will drift back off to sleep with no stimu lation after about 30 seconds. Overall, she is moving in the right direction, however. PHYSICAL EXAMINATION: VITAL SIGNS: Afebrile with a T-max of 99.8, pulse 98, blood pressure 131/88, respirations 20, satura tion 98% on 3 liters nasal cannula. GENERAL: Patient is awake, but somnolent. No apparent distress. LUNGS: Excellent air entry. There is no prolonged expiratory phase or wheezing. HEART: Normal rate and regular. ABDOMEN: Soft. It is tender to palpation throughout. There is a little bit of rebound in the hypog astric region. GENITOURINARY: No Lyn catheter in place. LABORATORY DATA: WBC 14.1, hemoglobin 10.9, and platelets 223,000. INR 1.4. Potassium 2.8, creatin ine continues to trend downward to 1.31. Sodium is stable at 143. Magnesium 1.9. Respiratory cultu re is negative to date. Urine cultures are growing small yeast species. C. diff antigen and toxin i s negative. One out of four blood cultures are growing coag negative staph. Urine culture is negati ve to date. IMAGING: Chest x-ray demonstrates improved opacifications in the perihilar region with no evidence o f pleural effusion. ASSESSMENT: 1. Acute hypoxic respiratory failure. 2. Community-acquired pneumonia, status post full course of antibiotics. 3. Severe sepsis, resolving. 4. Cerebrovascular accident with multiple areas of hemorrhagic conversion. 5. Chronic obstructive pulmonary disease with acute exacerbation, resolved. 6. Acute kidney injury, improving. 7. Status percutaneous endoscopic gastrostomy tube placement. 8. Type 2 diabetes mellitus. PLAN: At this point, I think the patient has completed her antibiotics as directed at lung pathology . As such, antibiotics will be interrupted. If she has a recrudescence in sepsis syndrome, I would consider antifungal agent, and investigating the abdomen. Outside of this, aggressive efforts at mob ilizing the patient will be undertaken. Pulmonary will continue to follow while the patient remains inhouse, but from my perspective, she should be stable to transition out of the hospital.
[2017-02-09 16:07] VITALS: BP 118/85; TEMP 98.4
[2017-02-09] MEDS: Ondansetron HCl/PF 4 MG/2 ML Vial SLOW IVP PRN (18:37)
--- NOTE | 2017-02-09 19:23 | PRG ---
DATE OF SERVICE: 02/09/2017 SUBJECTIVE: The patient is noted with the following. OBJECTIVE: VITAL SIGNS: Afebrile with temperature 99.8, pulse 98, blood pressure 131/88, respiratory rate of 20 and saturating 98%. HEENT: Unremarkable. CARDIOVASCULAR SYSTEM: First and second heart sounds were heard. RESPIRATORY SYSTEM: Clear to auscultation. DIGESTIVE SYSTEM: Revealed a benign abdomen. EXTREMITIES: No peripheral edema. SKIN: No new gross rash. LYMPHATICS: No peripheral lymphadenopathy. LABORATORY INVESTIGATIONS: Significant for potassium of 2.8 and magnesium normal at 1.9. IMPRESSION: 1. Acute on chronic kidney disease, much improved. 2. Hypokalemia, severe. PLAN: 1. Replete potassium level. 2. Continue to monitor the electrolytes. 3. Continue renal supportive measures. 4. Further management to be dependent on the clinical course.
--- NOTE | 2017-02-10 08:39 | DIS ---
DATE OF ADMISSION: 01/25/2017 DATE OF DISCHARGE: 02/09/2017 DIAGNOSES AT THE TIME OF ADMISSION: 1. Acute respiratory failure. 2. Pneumonia. 3. Non-ST segment elevation myocardial infarction. 4. Sepsis and septic shock with hypotension. 5. History of chronic obstructive pulmonary disease. 6. History of hypertension. 7. Diabetes mellitus type 2. DIAGNOSES AT THE TIME OF DISCHARGE: 1. Acute right middle cerebral artery, cerebrovascular accident with left facial droop and left mary paresis. 2. Diabetes mellitus, type 2. 3. Hypertension. 4. Septic shock with hypotension. 5. Community-acquired pneumonia, status post full course of antibiotics. 6. Chronic obstructive pulmonary disease with acute exacerbation, resolved. 7. Acute kidney injury, improving. 8. Status post percutaneous endoscopic gastrostomy tube placement. 9. Oropharyngeal dysphagia secondary to acute cerebrovascular accident. 10. Shock liver. 11. Diastolic heart failure. 12. History of asthma. 13. Coronary artery disease. CONSULTANTS: Dr. Poncho Hagen, infectious diseases service; Dr. Moo Edwards, GI; Dr. Gerry Helton, cardiology; Dr. Keith Thompson, critical care; Dr. Escobar, critical care/pulmonary; Dr. Carrington, ia phrology; Dr. Diane Cole, neurology service; Dr. Oren Yadav, critical care/pulmonary; Dr. Jorge Ontiveros, cardiology; Dr. John Pinon, GI; Dr. Blaise Swann, . HOSPITAL COURSE: Patient is a 61-year-old female with past medical history of chronic obst ructive pulmonary disease, coronary artery disease, hypertension, and hyperlipidemia, who was brought to the emergency room because the patient was found unresponsive by her daughter. Apparently, her d aughter was trying to get hold of her and thus she did not get any answers, so she went to check on er and found unresponsive on the floor. The EMS was called and the patient was intubated in the [facility] and she was brought to an outside ER. Upon the ER arrival, the patient was found to have pneumonia and respiratory failure, so she was transferred to [facility] in [place]. The patient was hypo tensive. She was started on vasopressors and admitted to ICU. During the emergency room evaluation, she was found to have hemoglobin of 13.4, white count of 22,000, platelet count was 227. INR was 1. 4, PT 7.79. BMP shows sodium of 142, potassium 4.1, chloride 110, CO2 of 24, BUN 14, creatinine 1.45 . BNP was 206. Troponin 3.88, alkaline phosphatase 76, and albumin 3.3. CT of the chest, abdomen, and pelvis showed positive for acute infiltrates in the right lung. CT of the brain was done and nuria wed subacute versus old area of ischemia within the right posterior parieto-occipital lobe. There wa s no acute intracranial hemorrhage. She was continued on ventilator in ICU setting. She was on broa d-spectrum antibiotics and troponin I showed elevation of the level above 2, so Cardiology was called and it was called non-ST segment elevation myocardial infarction. Dr. Helton saw the patient and he felt that this was probably demand ischemia. Also, her hypotension and sepsis required vasopressors , so she was placed on Solu-Medrol 60 mg every 6 hours and her blood glucose was monitored with Accu- Cheks and her insulin-sliding scale was used. Patient was seen by Dr. Escobar for critical care eval uation and she was diagnosed with community-acquired pneumonia. The CT angiogram did not show any PE , but chest x-ray and CT angiogram showed the right middle lobe consolidation and right lower lobe po sterior segment infiltrate. Echocardiogram was done showed normal ejection fraction at 50%-55% with no focal wall motion abnormalities. The patient was on vancomycin and cefepime for her pneumonia. Kelsie Escobar extubated her and she was very encephalopathic after that. It was felt that maybe she had this CVA earlier, not acutely. Her transaminases were elevated with AST of greater than 3500 and AL T of 3190. It was felt that this was consequence of shock liver and possibly also some medication ef fect. Liver ultrasound was done, which showed hepatomegaly, mild ascites, bilateral pleural effusion s, and prominent gallbladder wall thickening in nonspecific hepatopetal flow was seen within the port al veins and hepatic artery. Splenic veins were poorly assessed. Her mental condition improved and she was able to follow some commands and respond to some questions, although the patient was seen by neurologist, Dr. Diane Cole and he did not think that this was acute cerebrovascular accident, but th e left-sided weakness was chronic, and so the follow up MRI was done on the brain, which showed the l arge right parieto-occipital subacute infarction in the right middle cerebral artery territory had un dergone hemorrhagic transformation, which showed some degree of mass effect with slightly greater deg ree of mild subfalcine herniation. There were numerous additional tiny and small acute or subacute i nfarctions in the right frontal lobe. Bilateral internal capsules, bilateral cerebellar hemispheres, and left occipital pole in different vascular territories representing showering of emboli such as f rom a cardiac source, but the echocardiogram did not show any thrombus. It showed left ventricular e jection fraction estimated at 55%-60%, structural normal mitral valve, trace mitral regurgitation was present and structurally normal aortic valve with no significant stenosis or regurgitation. There w as normal pulmonary artery pressure and mild tricuspid regurgitation. Since her hemorrhagic conversi on, aspirin was stopped and all anticoagulation was stopped. The spectrum of antibiotics was broaden ed to meropenem and vancomycin and the Dobhoff was placed to start her feeding. Since she was in acu te renal failure, Nephrology was continuous. Dr. Carrington was managing her kidney function. Also because of her congestive heart failure, she was continued on Lasix 40 mg daily dose. During this ho spitalization, she was getting physical therapy. Also, there was a PEG tube placed for stroke with o ropharyngeal dysphagia, and she was started 4 cans per day and tube feeding. She finished up o n antibiotics for her pneumonia and sepsis and then she also was on micafungin for urinary tract yeas t. She completed all courses and gradually her condition started improving. She was transferred out from intensive care unit to stroke unit. Her feeding was continuous and she was accepted by [facility]. Today she is transferred there. Her vitals at the time of discharge, blood pres sure 118/85, pulse is 84, temperature is 98.4, respiratory rate is 16, O2 saturation is 97% on 2 lite rs. She is going to stay on diabetic diet. DISCHARGE MEDICATIONS: Her medications at the time of discharge, furosemide 20 mg once a day, rosuvastatin 40 mg at bedtime, multivitamin with iron and folic acid 1 tablet once a day, mirtazapine 15 mg at bedtime, metoprolol tartrate 12.5 mg twice a day, hydrocodone 10/325 mg tablets 3 times a day, Tylenol 650 q.4 hours p.r. n., albuterol 0.63 mg per 3 mL q.4 hours p.r.n., budesonide 160/4.5 two puffs twice a day. The patient is seen and examined before she is discharged. The discharge time is more than 30 minute s and she was transferred to the rehabilitation in [place].
== END 2017-02-09 19:42 | DRG 871 ==
LOC: ERS 01:36 → CCU 05:10 → IMCU/EMU 01-30 16:08 → 2SE 02-07 20:52
PROVIDERS: ADMIT Internal Medicine; ATTEND Internal Medicine
PROC: 5A1935Z Respiratory Ventilation, Less than 24 Consecutive Hours (ICD-10-PCS; 2017-01-25)
PROC: 02H633Z Insertion of Infusion Device into Right Atrium, Percutaneous Approach (ICD-10-PCS; 2017-01-25)
PROC: 5A09357 Assistance with Respiratory Ventilation, Less than 24 Consecutive Hours, Continuous Positive Airway Pressure (ICD-10-PCS; 2017-01-25)
PROC: 0DH63UZ Insertion of Feeding Device into Stomach, Percutaneous Approach (ICD-10-PCS; principal; 2017-02-06)
DX: A41.9 Sepsis, unspecified organism (principal); J96.01 Acute respiratory failure with hypoxia; I21.4 Non-ST elevation (NSTEMI) myocardial infarction; I63.511 Cerebral infarction due to unspecified occlusion or stenosis of right middle cerebral artery; I61.9 Nontraumatic intracerebral hemorrhage, unspecified; I50.33 Acute on chronic diastolic (congestive) heart failure; J18.9 Pneumonia, unspecified organism; G93.41 Metabolic encephalopathy; I11.0 Hypertensive heart disease with heart failure; K72.00 Acute and subacute hepatic failure without coma; N17.0 Acute kidney failure with tubular necrosis; R65.21 Severe sepsis with septic shock; E87.2 Acidosis; J44.0 Chronic obstructive pulmonary disease with (acute) lower respiratory infection; J44.1 Chronic obstructive pulmonary disease with (acute) exacerbation; B37.49 Other urogenital candidiasis; I47.1 Supraventricular tachycardia; G81.04 Flaccid hemiplegia affecting left nondominant side; E87.0 Hyperosmolality and hypernatremia; R13.12 Dysphagia, oropharyngeal phase; D69.6 Thrombocytopenia, unspecified; F17.210 Nicotine dependence, cigarettes, uncomplicated; I25.10 Atherosclerotic heart disease of native coronary artery without angina pectoris; Z95.5 Presence of coronary angioplasty implant and graft; E87.6 Hypokalemia; E78.5 Hyperlipidemia, unspecified; Z66 Do not resuscitate; I49.1 Atrial premature depolarization; R16.0 Hepatomegaly, not elsewhere classified; R29.810 Facial weakness; E11.9 Type 2 diabetes mellitus without complications; Z79.84 Long term (current) use of oral hypoglycemic drugs; F11.10 Opioid abuse, uncomplicated; E83.39 Other disorders of phosphorus metabolism; K25.9 Gastric ulcer, unspecified as acute or chronic, without hemorrhage or perforation; Z78.1 Physical restraint status
CPT/HCPCS: 36415; 36416; 36556; 51702; 70450; 70551; 71010; 71275; 74000; 76705; 80048; 80053; 80061; 80069; 80074; 80076; 80202; 81001; 81003; 81015; 82140; 82550; 82553; 82805; 83605; 83735; 83880; 84100; 84145; 84484; 85025; 85610; 85730; 86677; 87040; 87070; 87086; 87149; 87205; 87324; 87449; 93005; 93010; 93306; 93880; 94002; 94640; 94660; 94667; 94668; 94760; 96365; 96366; 96368; 96374; 96375; 96376; 99292; A4216; G8978-GP-CM; G8979-GP-CK; G8979-GP-CL; G8987-GO-CN; G8988-GO-CL; G8996-GN-CL; G8996-GN-CM; G8996-GN-CN; G8997-GN-CJ; G8997-GN-CK; G8997-GN-CM; G8997-GN-CN; J0131; J0295; J0692; J1644; J1650; J1815; J1885; J1940; J1956; J2001; J2060; J2185; J2248; J2250; J2270; J2405; J2704; J2920; J3010; J3370; J7050; J7070; J7620

== ENCOUNTER 2017-03-05 14:59 | Outpatient (CLI) | payer MEDICARE, MEDICAID ==
[2017-03-05 15:37] LABS: Band 8 % (5-11); Hemoglobin 9.4 g/dL (12.0-16.0); Lymphocytes 13 % (21-51); MDiff Complete? YES; Mean Corpuscular HGB CONC 32.6 g/dL (32.0-36.0); Mean Corpuscular Hemoglobin 31.2 pg (27.0-31.0); Mean Corpuscular Volume 95.6 fl (81.0-99.0); Mean Platelet Volume 6.3 fL (7.4-10.4); Monocytes 5 % (0-10); Neutrophil 64 % (42-75); PLT Morphology Comment Appears Adequate; Platelet Count 227 thou/uL (130-400); RBC Distribution Width 11.5 % (11.5-14.5); Reactive Lymphocytes 10 % (0-10); Red Blood Cell (RBC) Count 3.02 mill/uL (4.20-5.40); White Blood Cell (WBC) Count 9.1 thou/uL (4.8-10.8)
[2017-03-05 15:40] LABS: ALT (SGPT) 19 U/L (8-55); AST (SGOT) 29 U/L (5-34); Albumin 3.5 g/dL (3.5-5.0); Alkaline Phosphatase 116 U/L (40-150); Anion Gap 15 mmol/L (10-20); BUN (Urea Nitrogen) 11 mg/dL (9.8-20.1); Bilirubin, Total 0.5 mg/dL (0.2-1.2); Calc. Creatinine Clearance 0 mL/min (70-130); Calcium 9.5 mg/dL (7.8-10.44); Carbon Dioxide 32 mmol/L (22-29); Chloride 100 mmol/L (98-107); Estimated GFR-MDRD 41; Globulin 3.1 g/dL (2.4-3.5); Glucose 104 mg/dL (70-105); Potassium 3.3 mmol/L (3.5-5.1); Protein, Total 6.6 g/dL (6.0-8.3); Sodium 144 mmol/L (136-145)
[2017-03-05 15:57] LABS: Thyroid Stimulating Hormone 2.8331 uIU/mL (0.35-4.94)
--- NOTE | 2017-03-05 16:33 | RAD ---
PA AND LATERAL CHEST X-RAY 03/05/17 HISTORY: Pneumonia. COMPARISON: 02/09/17. FINDINGS: There are bilateral pleural effusions. Parenchymal changes in each lung base probably related to pass cheng atelectasis. The cardiac silhouette is mildly enlarged. Pulmonary vasculature is within normal li mits. Radiopaque catheter overlies the upper abdomen which may represent a gastrostomy tube. IMPRESSION: 1. Small bilateral pleural effusions with bibasilar parenchymal lung changes probably related to associated passive atelectasis. 2. Cardiomegaly. POS: [facility]
[2017-03-05 17:59] LABS: Hemoglobin A1c 5.1 % (4.0-6.0)
[2017-03-05 18:21] LABS: Free T4 (Free Thyroxine) 1.31 ng/dL (0.70-1.48)
== END 2017-03-05 15:00 | disposition home or self-care (01) ==
LOC: SCSRAD 14:59
PROVIDERS: ATTEND Family Medicine
DX: E11.59 Type 2 diabetes mellitus with other circulatory complications (principal); J18.9 Pneumonia, unspecified organism; J90 Pleural effusion, not elsewhere classified; I51.7 Cardiomegaly
CPT/HCPCS: 36415; 71046; 80053; 83036; 84439; 84443; 85025

== ENCOUNTER 2018-04-03 13:00 | Emergency (ER) | payer MEDICARE, MEDICAID ==
--- NOTE | 2018-04-03 13:43 | RAD ---
LEFT ANKLE THREE VIEWS: History: Left ankle injury after being knocked over by a dog. IMPRESSION: No acute fracture or subluxation is evident. Enthesopathic change is seen off the calcaneus. POS: [facility]
--- NOTE | 2018-04-03 13:54 | RAD ---
LEFT FOOT THREE VIEWS: INDICATIONS: Left foot injury after being knocked over by dogs. COMPARISON: None. IMPRESSION: There is scattered forefoot and midfoot osteoarthrosis. Lisfranc alignment appears within normal echevarria its. Accessory ossicle is seen adjacent to the cuboid. Enthesopathic change is seen off the calcane us. POS: [facility]
[2018-04-03] MEDS ORDERED: HYDROcodone/Acetaminophen 10/325 mg Tablet ONE (14:51)
== END 2018-04-03 14:56 | disposition home or self-care (01) ==
LOC: ERS 13:00
DX: M19.072 Primary osteoarthritis, left ankle and foot (principal); F41.9 Anxiety disorder, unspecified; F17.210 Nicotine dependence, cigarettes, uncomplicated; E11.9 Type 2 diabetes mellitus without complications; I10 Essential (primary) hypertension; Z79.1 Long term (current) use of non-steroidal anti-inflammatories (NSAID); Z79.899 Other long term (current) drug therapy; Z79.891 Long term (current) use of opiate analgesic; W01.0XXA Fall on same level from slipping, tripping and stumbling without subsequent striking against object, initial encounter; Y92.009 Unspecified place in unspecified non-institutional (private) residence as the place of occurrence of the external cause

== ENCOUNTER 2020-07-09 11:39 | Outpatient (CLI) | payer MEDICARE, MEDICAID | END 2020-07-09 11:40 | disposition home or self-care (01) | LOC: SCSRAD 11:39 | PROVIDERS: ATTEND Family Medicine | DX: M25.562 Pain in left knee (principal) ==

== ENCOUNTER 2021-07-20 10:28 | Outpatient (CLI) | payer MEDICARE, MEDICAID ==
[2021-07-20 14:49] LABS: #Lymphocytes 2.3 thou/uL (1.20-3.40); #Monocytes 0.5 thou/uL (0.11-0.59); #Neutrophils 8.3 thou/uL (1.40-6.50); %Basophils 0.3 % (0.0-1.0); %Eosinophils 0.4 % (0.0-10.0); %Lymphocytes 20.6 % (21.0-51.0); %Monocytes 4.1 % (0.0-10.0); %Neutrophils 74.6 % (42.0-75.0); Hemoglobin 14.6 g/dL (12.0-16.0); Mean Corpuscular HGB CONC 31.9 g/dL (32.0-36.0); Mean Corpuscular Hemoglobin 33.3 pg (27.0-31.0); Mean Platelet Volume 7.1 fL (7.4-10.4); Platelet Count 318 thou/uL (130-400); RBC Distribution Width 10.7 % (11.5-14.5); Red Blood Cell (RBC) Count 4.38 mill/uL (4.20-5.40); White Blood Cell (WBC) Count 11.1 thou/uL (4.8-10.8)
[2021-07-20 15:12] LABS: ALT (SGPT) 19 U/L (8-55); AST (SGOT) 19 U/L (5-34); Albumin 4.6 g/dL (3.4-4.8); Alkaline Phosphatase 105 U/L (40-110); Anion Gap 14 mmol/L (10-20); BUN (Urea Nitrogen) 11 mg/dL (9.8-20.1); Bilirubin, Total 0.4 mg/dL (0.2-1.2); Calc. Creatinine Clearance 0 mL/min (70-130); Calcium 9.5 mg/dL (7.8-10.44); Carbon Dioxide 23 mmol/L (23-31); Cardiac Risk 3.6 (Less than 4.5); Chloride 108 mmol/L (98-107); Cholesterol 123 mg/dl (< 200 Desired); Globulin 2.6 g/dL (2.4-3.5); Glucose 111 mg/dL (80-115); HDL Cholesterol 34 mg/dL (>60 Neg Risk); LDL Cholesterol, Calculated 72 mg/dL; Potassium 4.1 mmol/L (3.5-5.1); Protein, Total 7.2 g/dL (5.8-8.1); Sodium 141 mmol/L (136-145); Triglycerides 87 mg/dL (Less than 150)
[2021-07-20 15:31] LABS: Free T4 (Free Thyroxine) 0.95 ng/dL (0.70-1.48)
== END 2021-07-20 10:29 | disposition home or self-care (01) ==
LOC: SCSRAD 10:28
PROVIDERS: ATTEND Family Medicine
DX: I95.89 Other hypotension (principal); E78.5 Hyperlipidemia, unspecified
CPT/HCPCS: 71046; 80053; 80061; 84439; 84443; 85025

== ENCOUNTER 2022-02-16 12:30 | Outpatient (CLI) | payer OTHER | END 2022-02-16 12:31 | disposition home or self-care (01) | LOC: PET 12:30 | PROVIDERS: ATTEND Internal Medicine Critical Care Medicine | DX: C34.11 Malignant neoplasm of upper lobe, right bronchus or lung (principal) | CPT/HCPCS: 78815; A9552 ==

== ENCOUNTER 2022-03-01 16:20 | Outpatient (CLI) | payer OTHER | END 2022-03-01 16:21 | disposition home or self-care (01) | LOC: BICRAD 16:20 | PROVIDERS: ATTEND Thoracic Surgery (Cardiothoracic Vascular Surgery) | DX: R91.8 Other nonspecific abnormal finding of lung field (principal) | CPT/HCPCS: 71046 ==

== ENCOUNTER 2022-03-04 00:25 | Inpatient (IN) | payer OTHER ==
[2022-03-04 03:19] VITALS: BMI 22.9
[2022-03-04] MEDS ORDERED: Acetaminophen 650 MG Suppository PR PRN (03:21)
[2022-03-04] MEDS ORDERED: Benzonatate 100 MG CAP PO PRN (03:21)
[2022-03-04] MEDS ORDERED: Acetaminophen 325 MG TAB PO PRN (03:21)
[2022-03-04] MEDS ORDERED: Albuterol 200 PUFF (6.7GM INHALER) INH PRN (03:21)
[2022-03-04] MEDS ORDERED: Ondansetron ODT 4 MG TAB PO PRN (03:21)
[2022-03-04] MEDS ORDERED: HYDROcodone/Acetaminophen 5/325 mg Tablet PO PRN (03:21)
[2022-03-04] MEDS ORDERED: Senokot S 8.6-50 MG TAB PO PRN (03:21)
[2022-03-04] MEDS ORDERED: REMDESIVIR 200 MG in Sodium Chloride 0.9% 250 ML 210 ML IV SCH (03:30)
[2022-03-04 05:36] LABS: #Eosinphils 0.1 thou/uL (0.0-0.7); #Lymphocytes 2.8 thou/uL (1.20-3.40); #Monocytes 0.9 thou/uL (0.11-0.59); #Neutrophils 9.3 thou/uL (1.40-6.50); %Basophils 0.1 % (0.0-1.0); %Eosinophils 0.4 % (0.0-10.0); %Lymphocytes 21.6 % (21.0-51.0); %Monocytes 7.2 % (0.0-10.0); %Neutrophils 70.7 % (42.0-75.0); Hemoglobin 12.8 g/dL (12.0-16.0); Mean Corpuscular HGB CONC 33.9 g/dL (32.0-36.0); Mean Corpuscular Hemoglobin 34.2 pg (27.0-31.0); Mean Platelet Volume 6.7 fL (7.4-10.4); Platelet Count 345 10x3/uL (130-400); RBC Distribution Width 11.5 % (11.5-14.5); Red Blood Cell (RBC) Count 3.73 mill/uL (4.20-5.40); White Blood Cell (WBC) Count 13.1 10x3/uL (4.8-10.8)
[2022-03-04] MEDS ORDERED: Levothyroxine Sodium 50 MCG TAB PO SCH (06:00)
[2022-03-04 06:01] LABS: Troponin I 0.027 ng/mL (< 0.028)
[2022-03-04 06:03] LABS: ALT (SGPT) 28 U/L (8-55); AST (SGOT) 23 U/L (5-34); Albumin 3.2 g/dL (3.4-4.8); Alkaline Phosphatase 76 U/L (40-110); Anion Gap 12 mmol/L (10-20); BUN (Urea Nitrogen) 9 mg/dL (9.8-20.1); Bilirubin, Total 0.3 mg/dL (0.2-1.2); Calc. Creatinine Clearance 89 mL/min (70-130); Calcium 8.2 mg/dL (7.8-10.44); Carbon Dioxide 21 mmol/L (23-31); Chloride 111 mmol/L (98-107); Estimated GFR 97; Globulin 2.2 g/dL (2.4-3.5); Glucose 108 mg/dL (80-115); Potassium 3.9 mmol/L (3.5-5.1); Protein, Total 5.4 g/dL (5.8-8.1); Sodium 140 mmol/L (136-145)
[2022-03-04] MEDS ORDERED: Dexamethasone 4 MG TAB PO SCH (08:00)
[2022-03-04] MEDS ORDERED: Potassium Chloride 10 MEQ TAB PO SCH (09:00)
[2022-03-04] MEDS ORDERED: Rosuvastatin 20 MG TAB PO SCH (09:00)
[2022-03-04] MEDS ORDERED: Famotidine 20 MG TAB PO SCH (09:00)
[2022-03-04] MEDS ORDERED: Morphine ER 15 MG TAB PO SCH ×2 (11:15→21:00)
[2022-03-04 12:39] VITALS: BP 122/60; TEMP 99.3
[2022-03-04] MEDS ORDERED: HYDROcodone/Acetaminophen 10/325 mg Tablet PO SCH (15:00)
[2022-03-04] MEDS ORDERED: traZODone HCl 150 MG TAB PO SCH (21:00)
[2022-03-04] MEDS ORDERED: Mirtazapine 15 MG TAB PO SCH (21:00)
[2022-03-05] MEDS ORDERED: REMDESIVIR 100 MG in Sodium Chloride 0.9% 250 ML 230 ML IV SCH (03:30)
== END 2022-03-04 14:23 | disposition home or self-care (01) | DRG 177 ==
LOC: 2SW 00:25 → OBSVTOIN 03:30
PROVIDERS: ADMIT Internal Medicine; ATTEND Internal Medicine
PROC: 8E0ZXY6 Isolation (ICD-10-PCS; principal; 2022-03-04)
DX: U07.1 COVID-19 (principal); J12.82 Pneumonia due to coronavirus disease 2019; I10 Essential (primary) hypertension; G89.29 Other chronic pain; M54.9 Dorsalgia, unspecified; I25.10 Atherosclerotic heart disease of native coronary artery without angina pectoris; F41.9 Anxiety disorder, unspecified; F17.210 Nicotine dependence, cigarettes, uncomplicated; Z86.73 Personal history of transient ischemic attack (TIA), and cerebral infarction without residual deficits; Z88.1 Allergy status to other antibiotic agents; Z79.899 Other long term (current) drug therapy; Z79.51 Long term (current) use of inhaled steroids; I25.2 Old myocardial infarction; Z90.710 Acquired absence of both cervix and uterus; Z98.890 Other specified postprocedural states; Z85.118 Personal history of other malignant neoplasm of bronchus and lung
CPT/HCPCS: 36415; 71046; 80053; 84484; 85025; G0378; J1650; J8540; Q0162

== ENCOUNTER 2022-09-28 12:57 | Outpatient (CLI) | payer OTHER | END 2022-09-28 12:58 | disposition home or self-care (01) | LOC: CT 12:57 | PROVIDERS: ATTEND Radiology Radiation Oncology | DX: C34.11 Malignant neoplasm of upper lobe, right bronchus or lung (principal) | CPT/HCPCS: 71260; 82565 ==

== ENCOUNTER 2023-04-03 09:39 | Outpatient (CLI) | payer OTHER ==
[2023-04-03] MEDS ORDERED: Iopamidol 370 76% 100 ML VIAL ONE (10:17)
== END 2023-04-03 09:40 | disposition home or self-care (01) ==
LOC: CT 09:39
PROVIDERS: ATTEND Radiology Radiation Oncology
DX: C34.11 Malignant neoplasm of upper lobe, right bronchus or lung (principal); J98.4 Other disorders of lung; R91.1 Solitary pulmonary nodule; E27.8 Other specified disorders of adrenal gland
CPT/HCPCS: 71260

== ENCOUNTER 2024-10-14 10:39 | Outpatient (CLI) | payer OTHER | END 2024-10-14 10:40 | disposition home or self-care (01) | LOC: BICRAD 10:39 | PROVIDERS: ATTEND Nurse Practitioner Family | DX: M25.562 Pain in left knee (principal); M17.12 Unilateral primary osteoarthritis, left knee ==

== ENCOUNTER 2024-10-21 09:37 | Outpatient (CLI) | payer OTHER, MEDICAID ==
[2024-10-21] MEDS ORDERED: Iopamidol 370 76% 100 ML VIAL ONE (09:39)
[2024-10-21 11:00] LABS: Estimated GFR - POC 61.0
== END 2024-10-21 09:38 | disposition home or self-care (01) ==
LOC: CT 09:37
PROVIDERS: ATTEND Radiology Radiation Oncology
DX: C34.11 Malignant neoplasm of upper lobe, right bronchus or lung (principal); J98.4 Other disorders of lung; J43.2 Centrilobular emphysema; I70.0 Atherosclerosis of aorta; E27.8 Other specified disorders of adrenal gland; K57.10 Diverticulosis of small intestine without perforation or abscess without bleeding; Z98.890 Other specified postprocedural states
CPT/HCPCS: 36415; 71260; 82565 ×2; Q9967

== ENCOUNTER 2025-02-25 08:54 | Outpatient (CLI) | payer OTHER | END 2025-02-25 08:55 | disposition home or self-care (01) | LOC: RAD 08:54 | PROVIDERS: ATTEND Internal Medicine Critical Care Medicine | DX: R06.00 Dyspnea, unspecified (principal); J98.11 Atelectasis; J98.6 Disorders of diaphragm | CPT/HCPCS: 71046 ==